=== PATIENT | female | born 1965 | race Caucasian/White ===

== ENCOUNTER 2019-12-28 14:39 | Outpatient (NON) | payer OTHER, BC, SELFPAY | END 2019-12-28 14:40 | PROVIDERS: Visit Provider Nurse Practitioner Family | DX: R31.9 Hematuria, unspecified (principal) | CPT/HCPCS: 87086; 87088 ==

== ENCOUNTER 2020-02-18 11:28 | Outpatient (CLI) | payer OTHER, BC, SELFPAY ==
--- NOTE | 2020-02-18 11:31 | ECG_ITS ---
Measurements Intervals [place] Rate: 68 P: 50 NC: 142 QRS: -20 QRSD: 107 T: 60 QT: 414 QTc: 443 Interpretive Statements SINUS RHYTHM DELAYED PRECORDIAL R/S TRANSITION BORDERLINE ECG Electronically Signed On 02-18-2020 11:49:10 CDT by Valerio Kern D.O.
== END 2020-02-18 11:29 | disposition home or self-care (01) ==
PROVIDERS: Visit Provider Nurse Practitioner Family
DX: R03.0 Elevated blood-pressure reading, without diagnosis of hypertension (principal)
CPT/HCPCS: 93005

== ENCOUNTER 2020-05-09 12:09 | Outpatient (CLI) | payer OTHER, BC, SELFPAY ==
--- NOTE | ~2020-05-09 | US_ITS ---
EXAMINATION: US venous doppler [facility] DATE: 05/09/2020 12:55 INDICATION: Right lower limb pain TECHNIQUE: Grayscale ultrasound images without and with compression and Doppler ultrasound images of the bilateral lower extremity veins were obtained. COMPARISON: None. FINDINGS: The visualized portions of right common femoral vein, profunda (deep) femoral vein, femoral vein, pop liteal vein, posterior tibial veins, peroneal veins, gastrocnemius vein and greater saphenous vein ou tflow are patent. The visualized portions of left common femoral vein, profunda femoral vein, femoral vein, popliteal v ein, posterior tibial veins, peroneal veins, gastrocnemius vein and greater saphenous vein outflow ar e patent. IMPRESSION: 1. No deep venous thrombosis in either lower limb. Reviewed, dictated and finalized at location A.
--- NOTE | ~2020-05-09 | US_ITS ---
EXAMINATION: US arterial ankle brachial ind DATE: 05/09/2020 12:55 INDICATION: Paresthesias of skin and right leg pain. TECHNIQUE: Segmental pressures and plethysmographic and Doppler waveforms of the brachial and lower e xtremity arteries were obtained. COMPARISON: None. FINDINGS: Right and left brachial artery pressures of 138 mm Hg and 138 mm Hg, respectively, are concordant (no rmal difference <= 30 mmHg). The right ankle-brachial index (MANUEL) is 1.00 (normal >= 0.9-1.0). Arterial Doppler waveforms are trip hasic at the right posterior tibial and dorsalis pedis arteries. The left MANUEL is 1.07. Arterial Doppler waveforms are triphasic with brisk systolic upstrokes at both the left posterior tibial and dorsalis pedis arteries. IMPRESSION: 1. Normal study. Reviewed, dictated and finalized at location A. IMPRESSION: 1. Normal study.
== END 2020-05-09 12:10 | disposition home or self-care (01) ==
PROVIDERS: PCP Nurse Practitioner Family; Visit Provider Nurse Practitioner Family
DX: R20.2 Paresthesia of skin (principal); I73.9 Peripheral vascular disease, unspecified; M79.604 Pain in right leg; M79.605 Pain in left leg
CPT/HCPCS: 93922; 93970

== ENCOUNTER 2020-06-22 11:32 | Outpatient (CLI) | payer OTHER, BC, SELFPAY ==
--- NOTE | ~2020-06-22 | US_ITS ---
EXAMINATION: US renal BI DATE: 06/22/2020 12:01 INDICATION: Unspecified abdominal pain TECHNIQUE: Multiple grayscale and Doppler ultrasound images of the kidneys were obtained. COMPARISON: None. FINDINGS: The right kidney measures 9.7 x 3.3 x 5.5 cm. The left kidney measures 7.8 x 4.6 x 5.1 cm. The kidneys demonstrate normal parenchymal echogenicity. There is no hydronephrosis. The bladder is n ormal. IMPRESSION: 1. Normal kidneys without hydronephrosis. Reviewed, dictated and finalized at location A.
[2020-06-22 12:48] LABS: Add Urine Microscopic? YES; Appearance Urine Sl Cloudy (Clear); Bilirubin Urine 1+ (Negative); Blood Urine 3+ (Negative); Color Urine Amber (Yellow); Glucose Urine UA Negative (Negative); Ketones Urine Negative (Negative); Leukocyte Esterase Ur Trace LEU/UL (Negative); Nitrate Urine Negative (Negative); Protein Urine 2+ (Negative); Specific Grav Ur >= 1.030 (1.010-1.020); Urobilinogen Urine 0.2 mg/dL (0.2-1.0)
[2020-06-22 12:55] LABS: Bacteria Urine 1+ /hpf; RBC Urine >75 /hpf (0-2); Squamous Epithelial Cell Urine Few /hpf (Few); WBC Urine 0-3 /hpf (0-3)
== END 2020-06-22 11:33 | disposition home or self-care (01) ==
PROVIDERS: PCP Nurse Practitioner Family; Visit Provider Nurse Practitioner Family
DX: R39.9 Unspecified symptoms and signs involving the genitourinary system (principal); R10.9 Unspecified abdominal pain; Z87.442 Personal history of urinary calculi
CPT/HCPCS: 76775; 81001

== ENCOUNTER 2020-12-05 16:59 | Outpatient (NON) | payer OTHER, BC, SELFPAY | END 2020-12-05 17:00 | PROVIDERS: PCP Nurse Practitioner Family; Visit Provider Nurse Practitioner Family | DX: R31.9 Hematuria, unspecified (principal) | CPT/HCPCS: 87086 ==

== ENCOUNTER 2021-01-12 08:26 | Outpatient (CLI) | payer OTHER, BC, SELFPAY | END 2021-01-12 08:27 | disposition home or self-care (01) | LOC: CHSIMG 08:29 | PROVIDERS: PCP Nurse Practitioner Family; Visit Provider Nurse Practitioner Family | DX: Z12.4 Encounter for screening for malignant neoplasm of cervix (principal) | CPT/HCPCS: 88175; G0145 ==

== ENCOUNTER 2021-01-17 14:45 | Outpatient (CLI) | payer OTHER, BC, SELFPAY ==
--- NOTE | ~2021-01-17 | US_ITS ---
EXAMINATION: US renal BI DATE: 01/17/2021 15:09 INDICATION: Hematuria. TECHNIQUE: Multiple ultrasound grayscale images of the kidneys were obtained. COMPARISON: Ultrasound 06/22/2020 FINDINGS: The right kidney measures 10.3 x 4.2 x 5.1 cm. The left kidney measures 9.8 x 4.5 x 4.9 cm. The kidne ys demonstrate normal parenchymal echogenicity. There is no hydronephrosis. The bladder is not well d istended. IMPRESSION: 1. Normal kidneys. No hydronephrosis. Reviewed, dictated and finalized at location A.
== END 2021-01-17 14:46 | disposition home or self-care (01) ==
LOC: CHSIMG 14:46
PROVIDERS: PCP Nurse Practitioner Family; Visit Provider Nurse Practitioner Family
DX: R31.9 Hematuria, unspecified (principal)
CPT/HCPCS: 76775; 87077; 87086; 87088; 87186

== ENCOUNTER 2021-01-26 20:38 | Emergency (ER) | payer OTHER, BC, SELFPAY ==
--- NOTE | ~2021-01-26 | XR_ITS ---
EXAMINATION: XR chest 2V EXAM DATE: 01/26/2021 21:26 INDICATION: Sudden onset left side chest pain into left arm . TECHNIQUE: Frontal and lateral projections of the chest obtained and reviewed. Comparison is made to prior examination from 10/09/2016. FINDINGS: Linear right midlung zone atelectasis or scarring. The lungs are otherwise clear. There a re no pleural effusions. The cardiomediastinal silhouette is within normal limits. There is no pneu mothorax suspected. The bones and soft tissues are unremarkable. IMPRESSION: Linear subsegmental right midlung zone atelectasis or scarring. Reviewed, dictated and finalized at location G.
[2021-01-26 20:40] VITALS: PULSE 84
--- NOTE | 2021-01-26 20:43 | ECG_ITS ---
Measurements Intervals [place] Rate: 85 P: 41 [place]: 149 QRS: -31 QRSD: 101 T: 41 QT: 372 QTc: 444 Interpretive Statements SINUS RHYTHM LEFT AXIS DEVIATION BORDERLINE R WAVE PROGRESSION, ANTERIOR LEADS BASELINE ARTIFACT- II, III, AVF BORDERLINE ECG Electronically Signed On 01-27-2021 7:54:31 CDT by Valerio Kern D.O.
[2021-01-26 20:48] VITALS: BP 126/85; PULSE 84; RESP 20; TEMP 36.7; O2SAT 96
[2021-01-26 21:18] VITALS: O2SAT 100
[2021-01-26 21:48] LABS: Basophils Absolute Auto 0.06 K/mm3 (0.00-0.10); Basophils Percent Auto 0.7 % (0.0-1.0); Eosinophils Absolute Auto 0.19 K/mm3 (0.02-0.50); Eosinophils Percent Auto 2.3 % (1.0-6.0); Hematocrit 44.6 % (35.0-49.0); Hemoglobin 14.8 g/dL (12.0-15.0); Immature Granulocyte Absolute 0.03 K/mm3 (0.00-0.00); Immature Granulocyte Percent A 0.4 % (0.0-0.0); Lymphocytes Absolute Auto 2.73 K/mm3 (1.10-4.50); Lymphocytes Percent Auto 32.9 % (18.0-42.0); Mean Corpuscular HGB Conc 33.2 g/dL (32.0-36.0); Mean Corpuscular Hemoglobin 28.8 pg (27.0-31.0); Mean Corpuscular Volume 86.9 fL (78.0-102.0); Monocytes Absolute Auto 0.66 K/mm3 (0.10-0.90); Monocytes Percent Auto 7.9 % (2.0-11.0); Neutrophils Absolute Auto 4.6 K/mm3 (1.7-7.2); Neutrophils Percent Auto 55.8 % (50.0-70.0); Platelet Count Result 234 K/mm3 (150-420); Red Blood Count 5.13 M/mm3 (4.20-5.40); Red Cell Distribution Width 11.8 % (11.6-14.4); White Blood Count 8.3 K/mm3 (4.8-10.8)
[2021-01-26 21:54] LABS: D Dimer 0.34 mg/L (0.19-0.50)
[2021-01-26 22:00] LABS: Alanine Aminotransferase 40 U/L (14-59); Alkaline Phosphatase 82 U/L (46-116); Anion Gap 11 mmol/L (8-16); Aspartate Amino Transferase 19 U/L (15-37); Bilirubin,Total 0.3 mg/dL (0.00-1.00); Blood Urea Nitrogen 24 mg/dL (7-18); Calcium 9.8 mg/dL (8.5-10.1); Carbon Dioxide 26 mmol/L (21-32); Chloride 107 mmol/L (98-108); Estimated CRCL calculation 44 ml/min; Estimated Glomerular Filt Rate 47; Glucose 117 mg/dL (70-99); Osmolality Calculated 303 mOsm/kg (285-295); Potassium 3.9 mmol/L (3.5-5.1); Sodium 144 mmol/L (136-145); Total Protein 7.2 g/dL (6.4-8.2)
--- NOTE | 2021-01-26 22:00 | ED.CHESTPAIN ---
HPI - Chest Pain General Chief Complaint: Chest Pain Stated Complaint: pain in left arm, trouble catching breath Time Seen by Provider: 01/26/21 21:25 Source: patient Mode of arrival: ambulatory Limitations: no limitations History of Present Illness HPI narrative: Patient comes in after having left upper arm pain at home. With this she got acutely short of breath. This episode of shortness of breath was brief and only lasted a few seconds, and was accompanied with some mild diaphoresis. She had no chest pain, no long lasting shortness of breath, and no nausea with this. This has not happened again since she had the left arm pain at 6pm tonight. She states the pain in her upper arm lasted about ten minutes and then resolved. This presented with anxiety and shortness of breath which was brief. She has had no further symptoms since that time. Onset (ago): hour(s) Timing of current episode: episodic Onset: during rest Pain location: other (left posterior arm) Pain radiation: none Severity: moderate Quality: heaviness Relieving factors: nothing Exacerbating factors: nothing Associated symptoms: diaphoresis and other (shortness of breath) Treatment prior to arrival: none Risk Factors Coronary artery disease risk factors: smoking history Related Data Allergies Allergy/AdvReac Type Severity Reaction Status Date / Time No Known Allergies Allergy Verified 01/12/21 07:34 Review of Systems Constitutional: Constitutional: Reports no additional constitutional complaints Eyes: Eyes: Reports no additional eye complaints ENT: Reports system reviewed and no additional complaints, except as documented Cardiovascular: Cardiovascular: Reports no additional cardiovascular complaints Respiratory: Respiratory: Reports no additional respiratory complaints Gastrointestinal: Gastrointestinal: Reports no additional gastrointestinal complaints Genitourinary: Genitourinary: Reports no additional female genitourinary complaints Musculoskeletal: Musculoskeletal: Reports no additional musculoskeletal complaints Integumentary/Breasts: Skin/Breast: Reports system reviewed and no additional complaints, except as docu Neurologic: Reports system reviewed and no additional complaints, except as documented Psychiatric: Psychiatric: Reports no additional psychiatric complaints Endocrine: Endocrine: Reports no additional endocrine complaints Hematologic/Lymphatic: Hematologic/Lymphatic: Reports no additional hematologic/lymphatic complaints Allergic/Immunologic: Allergic/Immunologic: Reports no additional allergic/immunologic complaints PMFSH Past Medical History Medical History (Updated 01/26/21 @ 22:54 by Jamil Alex MD) Acute left flank pain GERD (gastroesophageal reflux disease) Left sided abdominal pain Major depression, recurrent Malaise and fatigue Nicotine dependence in remission Obese Overweight Pain in left leg Pain in right leg Sore throat Vitamin D deficiency Surgical History Surgical History H/O: section History of partial hysterectomy (~2001) Family History Family History Father Malignant neoplasm of prostate Mother Breast cancer Grandparent Uterine cancer Social History Social History Social History: , has 2 children Smoking status: Former smoker Alcohol intake: never Substance use: never Substance use type: does not use Additional occupation/education comments: 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 Gender identity (if verbalized by the patient): Female Spiritual care concerns: No Exam Const: General: cooperative, healthy appearing, comfortable, no acute distress, well developed and alert Nutritional Appearance: average body habitus Orientation/consciou
[2021-01-26 22:01] LABS: Troponin I < 4.0 ng/L (0.00-60.4)
[2021-01-26 22:02] LABS: BNP < 5.0 pg/mL (0-100)
[2021-01-26 22:04] VITALS: BP 120/80; PULSE 85; RESP 16; O2SAT 95
[2021-01-26 23:05] VITALS: BP 130/72; PULSE 78; RESP 18; TEMP 36.6; O2SAT 96
[2021-01-27 00:06] VITALS: BP 122/88; PULSE 83; RESP 16; O2SAT 95
--- NOTE | 2021-01-27 00:07 | PC.NURSE ---
[id number] no chest pain, no nausea patient eating snack & drinking soda
[2021-01-27 01:13] VITALS: BP 126/86; PULSE 86; RESP 16; TEMP 36.8; O2SAT 96
== END 2021-01-27 01:19 | disposition home or self-care (01) ==
PROVIDERS: Emergency Provider Emergency Medicine; PCP Nurse Practitioner Family
DX: M79.602 Pain in left arm (principal); R06.02 Shortness of breath
CPT/HCPCS: 36415; 71046; 80053; 83880; 84484; 85025; 85380; 93005; 99283; 99284

== ENCOUNTER 2021-04-30 14:41 | Outpatient (CLI) | payer OTHER, BC, SELFPAY ==
--- NOTE | ~2021-04-30 | CT_ITS ---
EXAMINATION: CT abdomen pelvis w con EXAM DATE: 04/30/2021 15:22 INDICATION: R10.32 - Left lower quadrant pain, symptoms 2 days. TECHNIQUE: Spiral CT of the abdomen and pelvis was performed following intravenous injection of 100 m L Omnipaque 350. Axial, coronal and sagittal images of the abdomen and pelvis were reviewed. The do se-length product (DLP) for this examination was 672.47 mGy-cm. The exposure was tailored according to patient size (auto mA exposure control), and iterative reconstruction (ASIR) was used as additiona l dose reduction technique. Correlation is made to kidney ultrasound 01/17/2021. FINDINGS: There is ill-defined enhancing enhancing mass in the lower pole of the right kidney measuri ng about 1.5 cm, statistically most likely renal cell cancer (axial image 80). Potentially could be c onsidered for cryoablation. Recommend consult. No hydronephrosis. There is hepatic steatosis without suspicious focal lesion identified. Spleen, adrenal glands, pancre as are unremarkable. Gallbladder is unremarkable. No biliary obstruction. The uterus is not identi fied and has likely been surgically resected. The bladder is unremarkable. There is no retroperiton eal or pelvic lymphadenopathy. The appendix is normal. There is mild to moderate descending/sigmoid colonic diverticulosis and mild adjacent inflammation consistent with acute uncomplicated diverticulitis. The stomach and small jeremiah l are unremarkable. There is expected amount of colonic stool. No free intraperitoneal gas. The heart is normal in size. There are no pericardial or pleural effusions. The lung bases are unremark able. The bones are unremarkable. IMPRESSION: 1. Small right renal mass. No evidence metastatic disease. consult. 2. Acute uncomplicated descending/sigmoid colonic diverticulitis. 3. Hepatic steatosis. Reviewed, dictated and finalized at location A.
== END 2021-04-30 14:42 | disposition home or self-care (01) ==
LOC: CHSIMG 14:43
PROVIDERS: PCP Nurse Practitioner Family; Visit Provider Nurse Practitioner Family
DX: R10.32 Left lower quadrant pain (principal); R10.2 Pelvic and perineal pain; M54.5 Low back pain
CPT/HCPCS: 74177; Q9967

== ENCOUNTER 2021-07-27 14:13 | Outpatient (CLI) | payer OTHER, BC, SELFPAY ==
--- NOTE | ~2021-07-27 | MM_ITS ---
EXAMINATION: MM screening [place] BI w rossy HISTORY: Screening mammogram TECHNIQUE: Craniocaudal and mediolateral oblique 3-D tomosynthesis images were obtained and synthetic 2-D images were generated. CAD analysis was submitted and interpreted. COMPARISON: 08/02/2019, 02/20/2017 bilateral digital screening mammogram BREAST PARENCHYMAL COMPOSITION: There are scattered areas of fibroglandular density. FINDINGS: There is no evidence of suspicious mass, calcification, or architectural distortion to sugg est malignancy in either breast. There has been no suspicious interval change. IMPRESSION: 1. No mammographic evidence of malignancy. 2. Recommend routine screening mammography in one year. BI-RADS Category 1: Negative Reviewed, dictated and finalized at location A.
== END 2021-07-27 14:14 | disposition home or self-care (01) ==
PROVIDERS: PCP Nurse Practitioner Family; Visit Provider Nurse Practitioner Family
DX: Z12.31 Encounter for screening mammogram for malignant neoplasm of breast (principal)
CPT/HCPCS: 77063; 77067

== ENCOUNTER 2021-07-31 07:44 | Outpatient (CLI) | payer OTHER, BC, SELFPAY ==
--- NOTE | ~2021-07-31 | CT_ITS ---
EXAMINATION: CT abdomen pelvis w con DATE: 07/31/2021 08:05 INDICATION: Right kidney mass follow-up TECHNIQUE: Computed tomography (CT) of the abdomen and pelvis was performed with 100 cc Omnipaque 350 intravenous contrast. Automated exposure control and iterative reconstruction technique were employe d. Exam dose: 649.03 mGy-cm total exam DLP. COMPARISON: 04/30/2021 CT abdomen pelvis FINDINGS: The lung bases are clear of infiltrate or consolidation or mass lesion. Normal heart size. No pericardial or pleural effusion. Diffuse hepatic steatosis. No hepatic space-occupying mass lesion or bile duct dilatation. The gallbl adder appears unremarkable. No pancreatic mass lesion, calcification or ductal dilatation. Normal splenic size. Normal morphology of the adrenal glands. Approximately 1.6 x 1.7 cm enhancing lower pole right renal mass lesion appears mildly increased in s ize from approximately 1.3 x 1.5 cm dimension on 04/30/2021. This is suspicious for a malignant hypern ephroma. 7 mm upper pole left renal cyst. No other renal mass lesion is evident. Mild bilateral chronic pyelonephritis is suggested. No urinary tract calculus or hydroureteronephrosis. Normal caliber of the abdominal aorta. No intraperitoneal or retroperitoneal or pelvic mass lesion or adenopathy or ascites is noted (with the exception of the previously reported right lower pole renal mass). Normal appendix. Diverticulosis of the left colon; no CT evidence of diverticulitis. No bowel obstruction, bowel wall thickening, pneumatosis or intraperitoneal free air is detected. No suspicious osteolytic or osteoblastic lesions are noted. IMPRESSION: Mild increased size of lower pole right renal enhancing mass, currently measuring 1.6 x 1.7 cm, suspicious for malignant hypernephroma Reviewed, dictated and finalized at Location A. Reviewed, dictated and finalized at location B. IMPRESSION: Mild increased size of lower pole right renal enhancing mass, curr ently measuring 1.6 x 1.7 cm, suspicious for malignant hypernephroma
== END 2021-07-31 07:45 | disposition home or self-care (01) ==
LOC: CHSIMG 07:46
PROVIDERS: PCP Nurse Practitioner Family; Visit Provider Nurse Practitioner Family
DX: N28.89 Other specified disorders of kidney and ureter (principal)
CPT/HCPCS: 74177; Q9967

== ENCOUNTER 2021-08-12 03:04 | Emergency (ER) | payer BC, SELFPAY ==
--- NOTE | ~2021-08-12 | CT_ITS ---
EXAMINATION: CT abdomen pelvis w con DATE: 08/12/2021 04:25 INDICATION: Right upper quadrant and epigastric abdominal pain for 4 hours. Vomiting. TECHNIQUE: Computed tomography (CT) of the abdomen and pelvis was performed with 100 cc Omnipaque 350 intravenous contrast. Automated exposure control and iterative reconstruction technique were employe d. Exam dose: 680.51 mGy-cm total exam DLP. COMPARISON: 07/31/2021 CT abdomen pelvis FINDINGS: The lung bases are clear. Normal heart size. No pericardial or pleural effusion. Small sliding hiatal hernia. The gallbladder is distended. No gallbladder wall thickening or pericholecystic fluid or fat strandin g is evident. Consider gallbladder ultrasound for further evaluation considering the complaint of rig ht upper quadrant pain. No hepatic space-occupying mass lesion or bile duct or pancreatic duct dilatation. No pancreatic mass lesion or calcification. Normal splenic size. Normal morphology of the adrenal glands. Approximately 1.6 cm lower pole right renal enhancing mass is again noted, of concern for possible hy pernephroma. No urinary tract calculus or hydroureteronephrosis. The urinary bladder is unremarkable. Status post hysterectomy. Normal caliber of the abdominal aorta. No intraperitoneal or retroperitoneal or pelvic mass lesion or adenopathy or ascites. Diverticulosis of the left colon; no CT evidence of diverticulitis. Normal appendix. No bowel obstruction, bowel wall thickening, pneumatosis or intraperitoneal free air. Degenerative changes of the thoracic and to a lesser extent lumbar spine. No suspicious osteolytic or osteoblastic lesions are noted. IMPRESSION: Persistent 1.6 cm lower pole right renal mass, of concern for possible hypernephroma Distended gallbladder; consider gallbladder ultrasound and/or related to colitis hepatobiliary scan a s clinically appropriate for evaluation of possible cholelithiasis or cholecystitis Small sliding hiatal hernia Normal appendix Diverticulosis of the colon; no CT evidence of diverticulitis No bowel obstruction or free air Status post hysterectomy Reviewed, dictated and finalized at [facility]. Reviewed, dictated and finalized at location A. IMPRESSION: Persistent 1.6 cm lower pole right renal mass, of concern for poss ible hypernephroma Distended gallbladder; consider gallbladder ultrasound and/or related to coliti s hepatobiliary scan as clinically appropriate for evaluation of possible rodrigue lithiasis or cholecystitis Small sliding hiatal hernia Normal appendix Diverticulosis of the colon; no CT evidence of diverticulitis No bowel obstruction or free air Status post hysterectomy
[2021-08-12 03:05] VITALS: BP 172/89; PULSE 71; RESP 22; TEMP 36.4; O2SAT 96
--- NOTE | 2021-08-12 03:14 | ECG_ITS ---
Measurements Intervals [place] Rate: 60 P: 30 [place]: 149 QRS: -21 QRSD: 99 T: 18 QT: 460 QTc: 461 Interpretive Statements SINUS RHYTHM VOLTAGE CRITERIA FOR LVH BASELINE ARTIFACT- I, III, AVL, AVF BORDERLINE ECG Electronically Signed On 08-13-2021 8:19:54 CDT by Valerio Kern D.O.
[2021-08-12] MEDS: ONDANSETRON INJ 4 MG/2 ML VIAL IV PUSH (03:24)
[2021-08-12] MEDS: MORPHINE SULFATE (*CRX) 4 MG/ML INJ IV PUSH (03:24)
[2021-08-12] MEDS: SODIUM CHLORIDE 0.9% IV 1,000 ML 999 ML IV CONT (03:25)
[2021-08-12] MEDS: PANTOPRAZOLE SODIUM IV 40 MG VIAL IV PUSH (03:25)
[2021-08-12 03:37] LABS: Basophils Absolute Auto 0.06 K/mm3 (0.00-0.10); Basophils Percent Auto 0.7 % (0.0-1.0); Eosinophils Percent Auto 1.1 % (1.0-6.0); Hematocrit 45.9 % (35.0-49.0); Hemoglobin 15.5 g/dL (12.0-15.0); Immature Granulocyte Absolute 0.04 K/mm3 (0.00-0.00); Immature Granulocyte Percent A 0.4 % (0.0-0.0); Lymphocytes Absolute Auto 1.25 K/mm3 (1.10-4.50); Lymphocytes Percent Auto 13.9 % (18.0-42.0); Mean Corpuscular HGB Conc 33.8 g/dL (32.0-36.0); Mean Corpuscular Hemoglobin 29.1 pg (27.0-31.0); Mean Corpuscular Volume 86.1 fL (78.0-102.0); Mean Platelet Volume 10.7 fl (9.2-11.8); Monocytes Absolute Auto 0.37 K/mm3 (0.10-0.90); Monocytes Percent Auto 4.1 % (2.0-11.0); Neutrophils Absolute Auto 7.2 K/mm3 (1.7-7.2); Neutrophils Percent Auto 79.8 % (50.0-70.0); Platelet Count Result 212 K/mm3 (150-420); Red Blood Count 5.33 M/mm3 (4.20-5.40); Red Cell Distribution Width 11.9 % (11.6-14.4)
[2021-08-12 03:51] LABS: INR 0.9; Partial Thromboplastin Time 23.9 SEC (23.90-30.70); Prothrombin Time 9.7 Seconds (9.50-12.10)
[2021-08-12 03:54] LABS: Lactic Acid Reflex 1.2 mmol/L (0.4-2.0)
[2021-08-12 03:56] LABS: Alanine Aminotransferase 54 U/L (14-59); Albumin Level 4.2 g/dL (3.4-5.0); Alkaline Phosphatase 87 U/L (46-116); Anion Gap 14 mmol/L (8-16); Aspartate Amino Transferase 27 U/L (15-37); Bilirubin,Total 0.4 mg/dL (0.00-1.00); Blood Urea Nitrogen 20 mg/dL (7-18); Calcium 9.2 mg/dL (8.5-10.1); Carbon Dioxide 23 mmol/L (21-32); Chloride 106 mmol/L (98-108); Estimated CRCL calculation 53 ml/min; Estimated Glomerular Filt Rate 59; Glucose 161 mg/dL (70-99); Lipase 177 U/L (73-393); Osmolality Calculated 301 mOsm/kg (285-295); Potassium 3.9 mmol/L (3.5-5.1); Sodium 143 mmol/L (136-145); Total Protein 7.3 g/dL (6.4-8.2)
[2021-08-12 03:59] LABS: Troponin I < 4.0 ng/L (0.00-60.4)
[2021-08-12 04:26] LABS: SARS-CoV-2 RNA PCR Negative (Negative)
--- NOTE | 2021-08-12 05:11 | ED.ABDPAIN ---
HPI - Abdominal Pain General Chief Complaint: Abdominal Pain Stated Complaint: sickness Source: patient History of Present Illness HPI narrative: this is a 56-year-old female that presents with some abdominal pain localizing to the right upper quadrant with some nausea will her up out of sleep this morning, she rates her pain about a 7/10 with no fever chills no diarrhea constipation. The patient recently had a CT scan of abdomen and pelvis in the end of July which showed a right kidney mass that is being investigated by Urology. No chest pain no shortness of breath no diarrhea constipation no fever chills. MD elicited complaint: abdominal pain Pertinent past history: none Onset (ago): hour(s) Pain Consistency: constant Severity: moderate Quality: aching Radiation: RUQ Related Data Allergies Allergy/AdvReac Type Severity Reaction Status Date / Time No Known Allergies Allergy Verified 08/06/21 13:24 Review of Systems Review of Systems: All systems reviewed & are unremarkable except as noted in HPI and below PMFSH Past Medical History Medical History Acute left flank pain GERD (gastroesophageal reflux disease) Left sided abdominal pain Major depression, recurrent Malaise and fatigue Nicotine dependence in remission Obese Overweight Pain in left leg Pain in right leg Sore throat Superficial sunburn Vitamin D deficiency Surgical History Surgical History H/O: section History of partial hysterectomy (~2001) Family History Family History Father Malignant neoplasm of prostate Mother Breast cancer Grandparent Uterine cancer Social History Social History Social History: , has 2 children Smoking status: Former smoker Alcohol intake: never Alcohol use details: social Substance use: never Substance use type: does not use Additional occupation/education comments: 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 Gender identity (if verbalized by the patient): Female Spiritual care concerns: No Exam Const: General: no acute distress Orientation/consciousness: patient oriented x3 Eyes: Pupils: Equal, round and reactive pupils present Neck: Neck: normal visual inspection, no lymphadenopathy and no meningeal signs Chest: Chest palpation & inspection: normal inspection of the chest Resp: Effort & Inspection: normal respiratory effort Auscultation: clear to auscultation bilaterally Cardio: Rate: regular rate Rhythm: regular rhythm GI: GI Palp: Yes Soft to palpation, Yes Tenderness to palpation present (GI) ( Right upper quadrant) and Yes Guarding due to palpation present (GI) : General: Yes no CVA tenderness Urinary Catheter: Urinary Catheter: patent and draining Skin: General skin exam: normal color Rashes: no rashes Extrem: General: normal to inspection and no pedal edema Psych: Mental Status: mental status grossly normal Affect: normal affect Course Course Emergency Course: patient with right upper quadrant abdominal pain had a CT scan that was reviewed with patient there is no acute abdominal process, there is a right kidney mass and has appointment see Urology for biopsy. Labs and COVID reviewed with patient. Patient did receive IV morphine and Zofran and has controlled her pain. Vital Signs Vital signs: Vital Signs Temperature 36.4 C 08/12/21 03:05 Pulse Rate 71 08/12/21 03:05 Respiratory Rate 22 H 08/12/21 03:05 Blood Pressure 172/89 H 08/12/21 03:05 Pulse Oximetry 96 08/12/21 03:05 Temperature 36.4 C 08/12/21 03:05 Pulse Rate 71 08/12/21 03:05 Respiratory Rate 22 H 08/12/21 03:05 Blood Pressure 172/89 H 08/12/21 03:05 Pulse Oximetry 96
[2021-08-12 05:24] VITALS: BP 132/93; PULSE 89; RESP 20; TEMP 36.4; O2SAT 99
== END 2021-08-12 05:28 | disposition home or self-care (01) ==
PROVIDERS: Emergency Provider Emergency Medicine; PCP Nurse Practitioner Family
DX: R10.11 Right upper quadrant pain (principal); Z20.822 Contact with and (suspected) exposure to COVID-19
CPT/HCPCS: 36415; 74177; 80053; 83605; 83690; 84484; 85025; 85610; 85730; 93005; 96361; 96374; 96375; 99283; 99284; C9113; C9803; J2270; J2405; J7030; Q9967; U0003; U0005

== ENCOUNTER 2021-08-12 08:19 | Emergency (ER) | payer BC, SELFPAY ==
[2021-08-12 08:30] VITALS: BP 166/85; PULSE 67; RESP 20; TEMP 36.5; O2SAT 97
--- NOTE | 2021-08-12 08:34 | ED.ABDPAIN ---
HPI - Abdominal Pain General Chief Complaint: Abdominal Pain Stated Complaint: RUQ pain, nausea, vomitting Time Seen by Provider: 08/12/21 08:37 History of Present Illness HPI narrative: 56-year-old female patient returns again with continuing pain in the right upper and mid abdomen and nausea, retching and vomiting some bile. Patient states that the pain started last night around 11:00 p.m. patient localizes the pain to the right upper quadrant and upper mid abdomen with the mild radiation around the side to the back but no radiation to the shoulder blade or into the lower abdomen. She was seen at around 5:00 a.m. this morning in the ER and had a complete workup done with labs and CT abdomen pelvis with IV contrast. Her labs seemed reasonably normal. A urinalysis was not obtained at that time. The CT abdomen and pelvis was reported with increased gallbladder distension in comparison to 07/31/2021. There was no biliary dilatation or other acute abnormalities or significant changes reported. The patient continues to have a 15 mm right lower pole solid renal lesion which is already under investigation with the urologist The patient apparently refused admission at that time. She was sent home with a prescription for famotidine 20 mg twice a day. Patient is currently on Augmentin twice a day since the last 5 days for sore throat. Patient reports no fever or chills. Patient denies any urinary symptoms. She denies any constipation or diarrhea. Her last bowel movement was early this morning. Patient states that she has not had anything to eat or drink since her early discharge from the ER . COVID screen is negative. Patient denies having had COVID vaccination . Related Data Home Medications Medication Instructions Recorded Confirmed amoxicillin 875 mg PO BID 08/12/21 08/12/21 Allergies Allergy/AdvReac Type Severity Reaction Status Date / Time No Known Allergies Allergy Verified 08/06/21 13:24 Review of Systems Review of Systems: All systems reviewed & are unremarkable except as noted in HPI and below Constitutional: Constitutional: Reports as per HPI and Reports no additional constitutional complaints Eyes: Eyes: Reports no additional eye complaints ENT: Reports system reviewed and no additional complaints, except as documented Cardiovascular: Cardiovascular: Reports no additional cardiovascular complaints Respiratory: Respiratory: Reports no additional respiratory complaints Gastrointestinal: Gastrointestinal: Reports as per HPI, Reports abdominal pain, Reports nausea and Reports vomiting Musculoskeletal: Musculoskeletal: Reports no additional musculoskeletal complaints Integumentary/Breasts: Skin/Breast: Reports system reviewed and no additional complaints, except as docu Neurologic: Reports system reviewed and no additional complaints, except as documented Psychiatric: Psychiatric: Reports no additional psychiatric complaints Endocrine: Endocrine: Reports no additional endocrine complaints Hematologic/Lymphatic: Hematologic/Lymphatic: Reports no additional hematologic/lymphatic complaints Allergic/Immunologic: Allergic/Immunologic: Reports no additional allergic/immunologic complaints PMFSH Past Medical History Medical History Acute left flank pain GERD (gastroesophageal reflux disease) Left sided abdominal pain Major depression, recurrent Malaise and fatigue Nicotine dependence in remission Obese Overweight Pain in left leg Pain in right leg Sore throat Superficial sunburn Vitamin D deficiency Surgical History Surgical History H/O: section History of partial hysterectomy (~2001) Family History Family History Father Malignant neoplasm of prostate Mother Breast cancer Grandparent Uterine cancer
[2021-08-12] MEDS: ONDANSETRON INJ 4 MG/2 ML VIAL IV PUSH (08:51)
[2021-08-12] MEDS: KETOROLAC 30 MG/ML VIAL (*BKC) IV PUSH (08:51)
[2021-08-12] MEDS: LACTATED RINGERS 1,000 ML 999 ML IV CONT (08:51)
[2021-08-12 08:59] LABS: Basophils Absolute Auto 0.05 K/mm3 (0.00-0.10); Basophils Percent Auto 0.6 % (0.0-1.0); Eosinophils Absolute Auto 0.02 K/mm3 (0.02-0.50); Eosinophils Percent Auto 0.3 % (1.0-6.0); Immature Granulocyte Absolute 0.03 K/mm3 (0.00-0.00); Immature Granulocyte Percent A 0.4 % (0.0-0.0); Lymphocytes Absolute Auto 0.89 K/mm3 (1.10-4.50); Lymphocytes Percent Auto 11.2 % (18.0-42.0); Mean Corpuscular HGB Conc 33.3 g/dL (32.0-36.0); Mean Corpuscular Hemoglobin 28.9 pg (27.0-31.0); Mean Corpuscular Volume 86.7 fL (78.0-102.0); Mean Platelet Volume 10.7 fl (9.2-11.8); Monocytes Absolute Auto 0.29 K/mm3 (0.10-0.90); Monocytes Percent Auto 3.6 % (2.0-11.0); Neutrophils Absolute Auto 6.7 K/mm3 (1.7-7.2); Neutrophils Percent Auto 83.9 % (50.0-70.0); Platelet Count Result 206 K/mm3 (150-420); Red Blood Count 5.19 M/mm3 (4.20-5.40); Red Cell Distribution Width 11.9 % (11.6-14.4)
[2021-08-12 09:00] LABS: Add Urine Microscopic? YES; Appearance Urine Clear (Clear); Bilirubin Urine Negative (Negative); Blood Urine 2+ (Negative); Color Urine Light Yellow (Yellow); Glucose Urine UA Negative (Negative); Ketones Urine Negative (Negative); Leukocyte Esterase Ur Negative LEU/UL (Negative); Nitrate Urine Negative (Negative); Protein Urine 1+ (Negative); Urobilinogen Urine 0.2 mg/dL (0.2-1.0)
[2021-08-12 09:12] LABS: Bacteria Urine Trace /hpf; Squamous Epithelial Cell Urine Occasional /hpf (Few); WBC Urine 0-3 /hpf (0-3)
[2021-08-12 09:16] LABS: Alanine Aminotransferase 61 U/L (14-59); Albumin Level 4.2 g/dL (3.4-5.0); Alkaline Phosphatase 86 U/L (46-116); Anion Gap 11 mmol/L (8-16); Aspartate Amino Transferase 33 U/L (15-37); Bilirubin,Total 0.7 mg/dL (0.00-1.00); Blood Urea Nitrogen 15 mg/dL (7-18); Calcium 9.2 mg/dL (8.5-10.1); Carbon Dioxide 26 mmol/L (21-32); Chloride 105 mmol/L (98-108); Estimated CRCL calculation 55 ml/min; Estimated Glomerular Filt Rate > 60; Glucose 141 mg/dL (70-99); Lipase 128 U/L (73-393); Osmolality Calculated 296 mOsm/kg (285-295); Potassium 4.4 mmol/L (3.5-5.1); Sodium 142 mmol/L (136-145); Total Protein 7.1 g/dL (6.4-8.2)
--- NOTE | 2021-08-12 10:02 | PC.NURSE ---
[facility] worker contacted for surgical consult. exchange number given for dr busby.
[2021-08-12] MEDS: MORPHINE SULFATE (*CRX) 2 MG/ML INJ IV PUSH (10:13)
--- NOTE | 2021-08-12 10:14 | PC.NURSE ---
dr messer exchange contacted
--- NOTE | 2021-08-12 11:51 | PC.NURSE ---
Dr. Centeno exchange contacted for second page.
[2021-08-12 11:55] VITALS: BP 126/81; PULSE 85; RESP 16; O2SAT 96
--- NOTE | 2021-08-12 12:00 | PC.NURSE ---
Dr. Chaney speaking with dr. busby, awaiting return call from hospitalist.
[2021-08-12 13:24] VITALS: BP 144/76; PULSE 75; RESP 16; O2SAT 96
--- NOTE | 2021-08-12 14:00 | PC.NURSE ---
Pt transferred to [facility] via [facility].
== END 2021-08-12 14:00 | disposition short-term general hospital (02) ==
PROVIDERS: Emergency Provider Emergency Medicine; PCP Nurse Practitioner Family
DX: R10.11 Right upper quadrant pain (principal)
CPT/HCPCS: 36415; 80053; 81001; 83690; 85025; 96361; 96374; 96375; 99285; J1885; J2270; J2405; J7120

== ENCOUNTER 2021-08-12 14:42 | Observation (INO) | payer BC, SELFPAY ==
--- NOTE | ~2021-08-12 | US_ITS ---
US abdomen limited INDICATION: Distended gallbladder PROCEDURE: Realtime right upper abdominal ultrasound. COMPARISON: No prior studies for comparison. FINDINGS: The pancreas is normal without focal mass or pancreatic ductal dilation. Liver echotexture is increased, consistent with fatty infiltration. There is normal directional flow in the portal ve in. There are gallstones. Mild gallbladder wall thickening. Common bile duct measures 6 mm. No sonograp hic Loyd's sign. There is a hyperechoic 2.3 cm right renal mass, suspicious for renal cell carcinom a. IMPRESSION: 1: Cholelithiasis with gallbladder wall thickening. Consider cholecystitis in the appropriate clinica l setting. 2: Hyperechoic 2.3 cm right renal mass, suspicious for renal cell carcinoma. Recommend correlation w ith MRI. Reviewed, dictated and finalized at location [facility]. IMPRESSION: 1: Cholelithiasis with gallbladder wall thickening. Consider cholecystitis in t he appropriate clinical setting. 2: Hyperechoic 2.3 cm right renal mass, suspicious for renal cell carcinoma. R ecommend correlation with MRI.
--- NOTE | ~2021-08-12 | NM_ITS ---
EXAMINATION: NM hepatobiliary wo pharm DATE: 08/13/2021 12:53 INDICATION: Enlarged gallbladder COMPARISON: Ultrasound dated 08/13/[address] dated 08/12/2021 TECHNIQUE: 5 mCi Tc-99m mebrofenin (Choletec) was administered intravenously. Scintigraphic images o f the abdomen were obtained for one hour. At the 1 hour time point 2 mg of morphine was administered IV and imaging continued for an additional 30 minutes. FINDINGS: There is normal clearance of radiotracer from the blood pool. There is homogeneous tracer u ptake by the liver. Activity progresses to the common bile duct and small bowel 15 minutes with prog ressively increasing activity in the small bowel throughout the remainder of the study. Following mor phine administration of the tiny amount of activity is seen lateral to the proximal common bile duct likely in the cystic duct but with a persistent photopenic defect in the expected region of the gallb ladder which is been distended on prior ultrasound and CT imaging and which would be consistent with acute cholecystitis. There is some reflux of activity into the stomach on the images following morphi ne administration. IMPRESSION: 1. No activity identified within the gallbladder including during 30 minutes of imaging post morphin e administration which would be consistent with acute cholecystitis. Reviewed, dictated and finalized at location A. IMPRESSION: 1. No activity identified within the gallbladder including during 30 minutes o f imaging post morphine administration which would be consistent with acute cho lecystitis.
--- NOTE | 2021-08-12 15:12 | ADMGEN ---
This patient, Melita Leiva, was admitted to Medical Room 250-01. Patient/family oriented to hospital policies and general routines including ID bracelet, bed and alarms, visiting hours, pain management, procedures, bathroom and other care routines, personal items, smoking policy, room service/diet, and visiting hours. Information on how to activate the Rapid Response Team has been discussed. Patient/Family are encouraged to report perceived risks to care and to ask questions if they do not understand what they are told or what they should do.
[2021-08-12 15:40] VITALS: BP 136/71; PULSE 59; RESP 16; TEMP 36.8; O2SAT 98
--- NOTE | 2021-08-12 16:31 | PM.IMHP ---
H&P: HPI History of Present Illness Date/Time: 08/12/21 16:31Thiamrit is a 56-year-old female patient who has a history of a 1.6 cm right lower pole solid renal mass which is already under investigation with the urologist. The patient woke up around 11:00 a.m. last night had some localized pain to her right upper quadrant and upper mid abdomen that had some mild radiation around the side of the back but no radiation to the shoulder blade her into the abdomen. The patient decided to go to the emergency room at [facility] around 5:00 a.m. and she had a complete workup with a CT of her abdomen and pelvis with IV contrast. The CT of the abdomen pelvis was reported with increased gallbladder distension in comparison to 07/31/2021. There was no biliary dilation or other abnormalities or significant changes reported. The 15 mm right lower pole solid renal mass was once again seen. The patient has been on Augmentin twice a day since last 5 days for sore throat. The patient denies any fever chills. The patient has not eaten anything since last night. The patient had been sent home with prescriptions for Pepcid. However the patient could not tolerate the pain and she was unable to eat or drink anything and she decided to come back to the emergency room at [facility]. The patient was tested negative for COVID-19. The patient denies having had a COVID vaccine. Dr. Chaney at [facility] stated that she had notified Dr. busby and he agrees to be the consult. The patient is being admitted to inpatient status for abdominal pain and gallbladder distention. Date of service is 08/12/2021 Chief Complaint: abdominal pain right upper quadrant Review of Systems Review of Systems: All systems reviewed & are unremarkable except as noted in HPI and below Constitutional: Constitutional: Reports as per HPI and Reports no additional constitutional complaints Eyes: Eyes: Reports as per HPI and Reports no additional eye complaints ENT: Reports system reviewed and no additional complaints, except as documented and Reports Normal hearing present Cardiovascular: Cardiovascular: Reports no additional cardiovascular complaints Respiratory: Respiratory: Reports no additional respiratory complaints and Reports no additional respiratory complaints Gastrointestinal: Gastrointestinal: Reports as per HPI and Reports no additional gastrointestinal complaints Musculoskeletal: Musculoskeletal: Reports no additional musculoskeletal complaints Integumentary/Breasts: Skin/Breast: Reports system reviewed and no additional complaints, except as docu and Reports as per HPI Neurologic: Reports system reviewed and no additional complaints, except as documented, Reports as per HPI and Reports Normal hearing present Psychiatric: Psychiatric: Reports no additional psychiatric complaints and Reports as per HPI Endocrine: Endocrine: Reports no additional endocrine complaints Hematologic/Lymphatic: Hematologic/Lymphatic: Reports no additional hematologic/lymphatic complaints Allergic/Immunologic: Allergic/Immunologic: Reports no additional allergic/immunologic complaints [facility] Past Medical History Medical History (Updated 08/12/21 @ 16:54 by Ashly Mejía NP) Acute left flank pain Diverticulosis recently treated for diverticulitis. GERD (gastroesophageal reflux disease) Left sided abdominal pain Major depression, recurrent Malaise and fatigue Nicotine dependence in remission Obese Overweight Pain in left leg Pain in right leg Renal mass Sore throat Superficial sunburn Vitamin D deficiency Surgical History Surgical History (Updated 08/12/21 @ 16:46 by Ashly Mejía NP) H/O: section x2 History of partial hysterectomy (~2001) Hx of lithotripsy Family History Family History Father Malignant neoplasm of prostate Mother Breast cancer Grandparent
[2021-08-12] MEDS: DEXTROSE 5%/0.9% SOD CHL 1,000 ML 100 ML IV CONT (17:10)
[2021-08-12 20:00] VITALS: PULSE 60; RESP 16; O2SAT 98
[2021-08-12] MEDS: PANTOPRAZOLE SODIUM IV 40 MG VIAL IV PUSH (20:51)
[2021-08-12 21:36] VITALS: BP 109/56; PULSE 60; RESP 16; TEMP 36.5; O2SAT 98
[2021-08-13 04:00] VITALS: BP 114/60; PULSE 66; RESP 16; TEMP 36.1; O2SAT 95
[2021-08-13] MEDS: DEXTROSE 5%/0.9% SOD CHL 1,000 ML 100 ML IV CONT (04:35)
[2021-08-13 05:09] LABS: Basophils Absolute Auto 0.1 K/mm3 (0.0-0.1); Eosinophils Absolute Auto 0.2 K/mm3 (0-0.3); Hematocrit 39.4 % (37.0-47.0); Hemoglobin 12.7 g/dL (12.0-15.0); Immature Granulocyte Absolute 0.01 K/mm3 (0.00-0.031); Immature Granulocyte Percent A 0.2 % (0-0.5); Lymphocytes Percent Auto 32.8 % (18.3-44.2); Mean Corpuscular HGB Conc 32.2 g/dl (32-36); Mean Corpuscular Hemoglobin 28.3 pg (26-34); Mean Corpuscular Volume 87.8 fl (80-100); Monocytes Absolute Auto 0.5 K/mm3 (0.1-0.6); Neutrophils Absolute Auto 3.1 K/mm3 (1.3-6.7); Platelet Count Result 169 k/mm3 (150-375); Red Blood Count 4.49 M/mm3 (4.2-5.4); Red Cell Distribution Width 12.1 % (11.5-14.5); White Blood Count 5.8 K/mm3 (4.5-10.0)
[2021-08-13 05:19] LABS: Lactic Acid Reflex 0.9 mmol/L (0.7-2.1)
[2021-08-13 05:20] LABS: Alanine Aminotransferase 37 U/L (4-35); Albumin Level 3.6 g/dL (3.5-5.1); Alkaline Phosphatase 56 U/L (38-126); Anion Gap 4 mmol/L (8-16); Aspartate Amino Transferase 29 U/L (14-36); Bilirubin,Total 0.8 mg/dL (0.2-1.3); Blood Urea Nitrogen 12 mg/dL (7-17); Calcium 8.8 mg/dL (8.4-10.2); Carbon Dioxide 27 mmol/L (22-30); Chloride 109 mmol/L (98-107); Estimated Glomerular Filt Rate > 60; Glucose 110 mg/dL (65-110); Lactate Dehydrogenase 292 U/L (313-618); Lipase 125 U/L (23-300); Magnesium 1.9 mg/dL (1.6-2.3); Potassium 3.7 mmol/L (3.4-5.0); Sodium 140 mmol/L (137-145)
[2021-08-13 08:00] VITALS: BP 143/86; PULSE 67; RESP 16; TEMP 36.7; O2SAT 100
[2021-08-13] MEDS: PANTOPRAZOLE SODIUM IV 40 MG VIAL IV PUSH (08:49)
--- NOTE | 2021-08-13 10:05 | PM.CNGS ---
Assessment and Plan Assessment and plan (1) Abnormal CT scan, gallbladder: Code(s): R93.2 - Abnormal findings on diagnostic imaging of liver and biliary tract Status: Acute Assessment and Plan: CT scan reviewed and discussed with the patient in detail. She has evidence of gallbladder distention. No cholelithiasis seen on the CT scan or other findings suggesting cholecystitis. She has had a normal WBC count and LFTs are normal, except for slight increase in ALT. Her abdominal pain and vomiting has completely resolved as of this morning. A RUQ abdominal ultrasound and HIDA scan have been ordered for today. I discussed the pathophysiology of gallbladder disease and treatment options. Briefly discussed what a laparoscopic cholecystectomy entails, risks, benefits, expected outcomes, and recovery. All questions were answered. Will keep her NPO for testing and await the HIDA and ultrasound results to decipher further plan of care. Continue analgesics PRN if pain returns. Okay to start a low fat diet after tests are completed from our standpoint. Will follow along with you. (2) Upper abdominal pain: Code(s): R10.10 - Upper abdominal pain, unspecified Status: Acute Assessment and Plan: Resolved. See plan above. (3) Renal mass: Code(s): N28.89 - Other specified disorders of kidney and ureter Status: Chronic Assessment and Plan: 1.6 cm lower pole right renal mass noted on CT scan. This is known to the patient and she is following a Urologist in [place] who is following this. (4) GERD (gastroesophageal reflux disease): Code(s): K21.9 - Gastro-esophageal reflux disease without esophagitis Status: Acute Additional Plan I have discussed the patient's case and plan of care with Dr. Gonsalez. Thank you for allowing us to see the patient in consultation. History of Present Illness Consult details Consult date: 08/13/21 Reason for consult: other (Gallbladder distention and abdominal pain) Requesting physician: Ashly Mejía NP Narrative: This is a 56-year-old female who presented to [facility] yesterday twice with complaints upper abdominal pain and vomiting. She had epigastric and RUQ abdominal pain starting around 11:00 p.m. the night before. She reports having a large quantity of deep fried pork rinds during the day. She had multiple episodes of emesis and began having bloating and epigastric abdominal pain. This led her to the ER initially. CT scan of the abdomen and pelvis suggested gallbladder distension but no other findings suggesting cholecystitis. She also had a 15 mm right lower pole renal lesion, which is currently under investigation by Urology in [place]. Labs showed a white blood cell count of 9000, and normal LFTs other than a slightly elevated ALT of 61. Urinalysis negative for UTI. She had also recently been on Augmentin x 5 days for strep throat. She was discharged home and instructed to follow-up with her PCP. Her symptoms persisted, and she presented back to the ER later in the day. She was given pain medication and Zofran in the ER without much relief. Our service was then consulted by the ED physician in [place] due to her continued abdominal pain and gallbladder findings on the CT scan. The decision was made to directly admit the patient to the hospitalist service at [facility]. She is now seen on the medical floor. Labs have been repeated and WBC remains normal and LFTs normal. As of this morning, her abdominal pain has completely resolved. She denies any nausea or discomfort this morning. She does have a history kidney stones, reportedly on 11 separate occasions. She reports this pain is different than when she has had kidney stones in the past. She has never had this pain before. Denies fever or chills. No change in bowel habits. No other complaints at this time. Review of Systems Review of Systems: All systems reviewed & are unremarkable exce
--- NOTE | 2021-08-13 10:23 | PM.IMPN ---
Progress Note: A&P Assessment and Plan (1) Abnormal CT scan, gallbladder: Code(s): R93.2 - Abnormal findings on diagnostic imaging of liver and biliary tract Status: Acute Assessment and Plan: Presented with right upper quadrant and epigastric pain, as well as nausea and vomiting. CT abdomen/pelvis showed distended gallbladder Total bilirubin and LFTs within normal limits (ALT minimally elevated, essentially normalized today) RUQ US pending HIDA scan ordered; awaiting completion Appreciate general surgery consultation Supportive care, analgesics available as needed She is NPO for imaging, advance diet per general surgery following completion. Continue gentle IV fluids while NPO She has been started on Zosyn empirically for possible cholecystitis. (2) Abdominal pain: Qualifiers: Abdominal location: right upper quadrant Qualified Code(s): R10.11 - Right upper quadrant pain Code(s): R10.9 - Unspecified abdominal pain Status: Inactive Assessment and Plan: Resolved. Plan as above (3) Renal mass: Code(s): N28.89 - Other specified disorders of kidney and ureter Status: Chronic Assessment and Plan: CT abdomen/pelvis showed persistent 1.6 cm lower pole right renal mass She is being followed by urologist Dr. Evans, biopsy is being planned (4) GERD (gastroesophageal reflux disease): Code(s): K21.9 - Gastro-esophageal reflux disease without esophagitis Status: Acute Assessment and Plan: Asymptomatic at this time Continue IV protonix (5) Strep throat: Code(s): J02.0 - Streptococcal pharyngitis Status: Acute Assessment and Plan: Recently evaluated at PCP office for sore throat. Found to be positive for streptococcal pharyngitis on 08/06/2021 Has been on amoxicillin b.i.d. Ten day course prescribed. She is on IV Zosyn at this time. She has 2 more days of treatment. Will plan to put her back on p.o. amoxicillin if no need for Zosyn based on above evaluation Subjective Date/time seen: 08/13/21 10:23 Interval history: Date of service: 08/13/2021 Melita Leiva is a 56-year-old female with a history of depression and recent strep throat on antibiotic therapy since 08/06/2021 who is seen in follow-up for gallbladder distension and abdominal pain. At the time of my evaluation, she is feeling much better. She has no abdominal pain, epigastric pain, right upper quadrant pain at this time. She denies nausea or vomiting. Last night she was able to tolerate clear liquids. She has been NPO today. Her last bowel movement was 1 day ago. No diarrhea. She denies abdominal pain, cramping, or bloating. She urinary symptoms including dysuria or hematuria. She denies fevers or chills. No shortness breath, cough, chest pain, palpitations, dizziness, lightheadedness, weakness. Review of Systems Review of Systems: All systems reviewed & are unremarkable except as noted in HPI and below Exam Narrative: Ms. Leiva is a well-nourished, well-appearing 56-year-old female who is lying semi recumbent in bed. She appears comfortable and is in NARD. Neuro: awake, alert and oriented x4, speech clear, no focal neuro deficits noted HEENMT: normocephalic, atraumatic, EOMI, sclerae anicteric, moist oral mucosa Neck: supple, no lymphadenopathy Respiratory: clear to auscultation bilaterally, nonlabored breathing Cardio: regular rate, regular rhythm with S1-S2 Abdomen: nondistended, normoactive bowel sounds, soft, nontender to palpation, no RUQ or epigastric tenderness Extremities: no edema, erythema or tenderness to palpation, DP pulses 2+ bilaterally Skin: no rashes or lesions, warm and dry Psych: appropriate mood and affect, judgment and insight intact Objective Data Vital Signs Vital Signs: Vital Signs - 24 hr 08/12/21 15:40 08/12/21 20:00 08/12/21 21:36 Temperature 98.3 F 97.7 F Pulse Rate 59
[2021-08-13] MEDS: MORPHINE SULFATE (*CRX) 2 MG/ML INJ IV PUSH (12:10)
--- NOTE | 2021-08-13 16:28 | PM.DS ---
DS: Admitting Diagnosis Discharge Date 08/13/21 Admitting Diagnosis Abdominal pain DS: Discharge Diagnosis Discharge Diagnosis (1) Abnormal CT scan, gallbladder: Code(s): R93.2 - Abnormal findings on diagnostic imaging of liver and biliary tract Status: Acute Assessment and Plan: Presented with right upper quadrant and epigastric pain, as well as nausea and vomiting. CT abdomen/pelvis showed distended gallbladder Total bilirubin and LFTs within normal limits (ALT minimally elevated on presentation, improved and essentially normalized) RUQ US showed cholelithiasis with gallbladder wall thickening HIDA scan showed no activity identified in the gallbladder She was seen in consultation by General surgery She will follow-up in 2-3 weeks to schedule laparoscopic cholecystectomy She was able to tolerate a low-fat diet which she will continue (2) Abdominal pain: Qualifiers: Abdominal location: right upper quadrant Qualified Code(s): R10.11 - Right upper quadrant pain Code(s): R10.9 - Unspecified abdominal pain Status: Inactive Assessment and Plan: Secondary to above. Pain resolved entirely and she was able to tolerate her diet. (3) Renal mass: Code(s): N28.89 - Other specified disorders of kidney and ureter Status: Chronic Assessment and Plan: CT abdomen/pelvis showed persistent 1.6 cm lower pole right renal mass She is being followed by urologist Dr. Evans, biopsy is being planned She would like to time her renal biopsy with her cholecystectomy to avoid missing work for extended duration (4) GERD (gastroesophageal reflux disease): Code(s): K21.9 - Gastro-esophageal reflux disease without esophagitis Status: Acute Assessment and Plan: No issues. IV Protonix while inpatient. Continue PO Pepcid outpatient. (5) Strep throat: Code(s): J02.0 - Streptococcal pharyngitis Status: Acute Assessment and Plan: Recently evaluated at PCP office for sore throat. Found to be positive for streptococcal pharyngitis on 08/06/2021. She was started on amoxicillin PO bid for a 10 day course. Held during hospital stay when she received IV Zosyn for treatment of possible acute cholecystitis. Resume amoxicillin to complete course. DS: Summary Hospital Course Hospital Course: Date of admission: 08/12/2021 Date of discharge: 08/13/2021 Melita Leiva is a 56-year-old female with a history of depression, right renal mass being followed by Urology, and recent strep throat on antibiotic therapy who presented to outside hospital on 08/12/2021 with complaints of right upper quadrant and epigastric pain with associated nausea and vomiting. On presentation to the emergency department, her vital signs were stable, she was afebrile, CBC and BMP unremarkable, ALT minimally elevated with additional LFTs and total bilirubin within normal limits, and CT abdomen/pelvis showed distended gallbladder as well as persistent right renal mass. She was transferred to [facility] and admitted to the hospitalist service for general surgery consultation. Please see above for further details. She had RUQ ultrasound and HIDA scan which demonstrated signs of cholecystitis. She was feeling very well and able to tolerate her diet and requested discharge home. She will follow-up with General surgery in 2-3 weeks for laparoscopic cholecystectomy. She would like to time this surgery around her renal biopsy. I spoke with general surgeon, Dr. Gonsalez, who felt comfortable with plans for discharge and outpatient followup. She will continue a low fat diet. Given her overall improvement, she was determined to no longer require inpatient care and was felt to be stable for discharge. We discussed worrisome signs and symptoms for which to return and she was educated on her medications. She was discharged in hemodynamically stable condition on 08/13/2021 Status
== END 2021-08-13 17:22 | disposition home or self-care (01) ==
PROVIDERS: Nurse Practitioner; Admitting Provider Internal Medicine; PCP Nurse Practitioner Family; Visit Provider Physician Assistant
DX: K80.20 Calculus of gallbladder without cholecystitis without obstruction (principal); N20.0 Calculus of kidney; J02.0 Streptococcal pharyngitis; K21.9 Gastro-esophageal reflux disease without esophagitis; N28.89 Other specified disorders of kidney and ureter; R10.11 Right upper quadrant pain; Z87.891 Personal history of nicotine dependence
CPT/HCPCS: 36415; 76705; 78226; 80053; 82728; 83605; 83615; 83690; 83735; 84443; 85025; 96361; 96365; 96366; 96375; 96376; A9537; C9113; G0378; J2270; J2543; J7042

== ENCOUNTER → 2021-09-22 00:10 | Outpatient (CLI) | payer BC, SELFPAY ==
[2021-09-22 18:14] LABS: SARS-CoV-2 RNA PCR Negative
== END ==
PROVIDERS: PCP Nurse Practitioner Family; Visit Provider Surgery
DX: Z01.812 Encounter for preprocedural laboratory examination (principal); Z20.822 Contact with and (suspected) exposure to COVID-19
CPT/HCPCS: C9803; U0003; U0005

== ENCOUNTER 2021-09-22 08:26 | Outpatient (CLI) | payer BC, SELFPAY ==
[2021-09-22 09:48] LABS: Alanine Aminotransferase 29 U/L (4-35); Albumin Level 4.7 g/dL (3.5-5.1); Alkaline Phosphatase 67 U/L (38-126); Amylase 89 U/L (30-110); Aspartate Amino Transferase 28 U/L (14-36); Bilirubin,Total 0.6 mg/dL (0.2-1.3); Lipase 207 U/L (23-300)
== END 2021-09-22 08:27 | disposition home or self-care (01) ==
LOC: ANHLAB 08:28
PROVIDERS: PCP Nurse Practitioner Family; Visit Provider Surgery
DX: K81.9 Cholecystitis, unspecified (principal); Z01.818 Encounter for other preprocedural examination
CPT/HCPCS: 36415; 80076; 82150; 83690; 86850; 86900; 86901

== ENCOUNTER 2021-09-26 00:36 | Day surgery (SDC) | payer BC, SELFPAY ==
[2021-09-18 11:47] VITALS: BMI 29.2
--- NOTE | 2021-09-18 12:05 | PC.NURSE ---
Addendum entered by Jen Molina RN 09/18/21 12:12: [facility] SHOWER MORNING OF SURGERY Original Note: Report to the Outpatient Waiting Room, entrance under the green pavilion located off [facility], at time 6:30 on date 09/26/21. OR Time: 8:30. - You and your visitor will be asked a series of questions to screen for COVID 19 for your protection. - A mask is required within the hospital. - Only one visitor is allowed at this time. Patient visitors will be guided where to wait when not with patient. Preoperative COVID Testing Requirements: No COVID Test needed if: (proof is required; if not received patient will have Rapid Test prior to entry) - Patient has received COVID Vaccine at least 14 days prior to procedure date or - Patient has positive COVID test result within last 90 days of surgery date. COVID Test needed if above criteria is not met If not COVID vaccinated a COVID test must be conducted within 72 hours of surgery and patient is asked to isolate self from time of testing until procedure. You will go to the [facility] for your COVID testing. The [facility] site is located at the corner of [address] [facility]. COVID TEST 09/22 AT 8:30 You will only be called if COVID results are positive and your surgeon may reschedule your elective surgery date. Patients may have clear liquids (water, carbonated beverages, clear teas, apple juice) until 3 hours prior to surgery with a maximum of 20 ounces. - No food from midnight until time of surgery - Infants may have breast milk until 4 hours before surgery, formula 6 hours prior to surgery. - Children will be allowed to drink immediately following surgery. If applicable, please bring a bottle or sippy cup to assist with drinking. Juice, water, soda, and popsicles are readily available. For infants on formula, please bring formula the day of surgery. Pacifiers are allowed. Take the following medications with a SIP of water the morning of surgery: PAIN PILL (IF NEEDED) Medications to discontinue per physician: N/A Date to take last dose: N/A Please no make-up, nail [facility], hairspray, perfume, deodorant, or body powder the day of surgery. No jewelry (including any body piercings) or valuables the day of surgery, leave them at home. Please take a shower or bath the night before, or the morning of, surgery with an antibacterial soap. Wear comfortable, loose fitting clothing. Children are encouraged to wear pajamas. - Jewelry must be removed prior to entering the operating room. Rings and piercings that are not removed may be cut off. - The hospital will not accept responsibility for valuables. - Please leave all valuables, including medications, at home the day of surgery. If you are going home after surgery, a licensed city route driver must drive you home. - NO public transportation without another adult. - We recommend that an adult stay with you for 24 hours following discharge. - We also recommend that you do not drive, make important decision, drink alcoholic beverages, or take any drugs that were not prescribed by your health care provider for at least 24 hours after your discharge time. For Pediatric surgeries, we recommend two adults accompany the child home (only one inside the building at this time). Follow any additional instructions given to you from your surgeon. Telephone instructions given to YURI HERNANDEZ and asked if any additional questions and then verbalized understanding. Patient advised to call surgeon office or pre surgery nurse liaison [phone] if any additional questions.
--- NOTE | 2021-09-24 16:36 | PM.SD2 ---
Same Day Admit/Disch: HPI History of Present Illness Chief complaint: Cholecystitis Narrative: Melita Leiva is a 56 year old female Who presented to the emergency room on 08/13/2021. She had eaten numerous deep fried pork rinds and following this developed severe right upper quadrant abdominal pain and epigastric pain with vomiting. She was admitted to the hospital on 08/13. Ultrasound showed gallstones and evidence of inflammatory changes. She had a HIDA scan which showed nonvisualization of the gallbladder consistent with acute cholecystitis. Her pain completely resolved shortly after admission and she was able to tolerate oral intake. She was due to have a biopsy of a renal mass in the lower pole of her right kidney later that week. She opted to be discharged to proceed with her renal biopsy. She is taken to surgery at this time for laparoscopic cholecystectomy for cholecystitis with gallstones. She has not had any severe symptoms since her August episode. [facility] Past Medical History Medical History Acute left flank pain Diverticulosis recently treated for diverticulitis. GERD (gastroesophageal reflux disease) Left sided abdominal pain Major depression, recurrent Malaise and fatigue Nicotine dependence in remission Obese Overweight Pain in left leg Pain in right leg Renal mass Sore throat Superficial sunburn Vitamin D deficiency Surgical History Surgical History H/O: section x2 History of partial hysterectomy (~2001) Hx of lithotripsy Family History Family History Father Malignant neoplasm of prostate Mother Breast cancer Grandparent Uterine cancer Grandparent Stomach cancer Sibling Kidney malignancy Social History Social History Social History: , has 2 children the patient is a full code and desires to have her is a durable power employee benefits attorney for healthcare. The patient is a former smoker. She does not drink use marijuana or illicit drugs. 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 Gender identity (if verbalized by the patient): Female Spiritual care concerns: No Same Day Admit/Disch: Med Pre-admit Medications Home Medications Medication Instructions Recorded Confirmed Type hydrocodone 5 mg-acetaminophen 325 1 tablet PO DAILY PRN #10 tablet 08/31/21 09/26/21 Rx mg tablet famotidine 20 mg tablet 20 mg PO DAILY 09/07/21 09/26/21 History hydrocodone-acetaminophen 1 - 2 tablet PO Q6H PRN #12 tablet 09/26/21 Rx ketorolac 10 mg PO Q6H 4 Days #16 tablet 09/26/21 Rx Exam Const: General: comfortable, no acute distress, alert and awake HENMT: Head: normocephalic and atraumatic Mouth: Yes Normal oral and palatal mucosa present Eyes: Conjunctivae: conjunctivae normal Pupils: Equal, round and reactive pupils present EOM: EOMs intact bilaterally Neck: Neck: normal visual inspection, no lymphadenopathy and nontender Resp: Effort & Inspection: normal respiratory effort Auscultation: clear to auscultation bilaterally Cardio: Rate: regular rate Rhythm: regular rhythm Heart sounds: no gallops, no murmurs and no rubs GI: Inspection: non-distended GI Palp: Yes Soft to palpation, No Tenderness to palpation present (GI), No Hepatomegaly present and No Splenomegaly present
[2021-09-26] VITALS (9 sets, daily range): BP systolic 127–147; BP diastolic 54–85; PULSE 52–71; RESP 12–21; TEMP 36.2–36.8; O2SAT 96–100; BMI 30.5
[2021-09-26] MEDS: ACETAMINOPHEN 500 MG TABLET 1000 MG PO (06:59)
[2021-09-26] MEDS: KETOROLAC 15 MG/ML VIAL (*BKC) IV PUSH (07:00)
[2021-09-26] MEDS: LACTATED RINGERS 1,000 ML 30 ML IV CONT ×2 (07:05→09:19)
--- NOTE | 2021-09-26 07:40 | WPDANESEPPF ---
Anes - Initial Pre Proc Eval Procedure: Operation Date: 09/26/21 08:30 Proposed Procedures p Laparoscopic Cholecystectomy - Jad Gonsalez MD Date/Time: 09/26/21 07:40 Surgeon: Jad Gonsalez MD Pre Op Diagnosis: Cholecystitis Patient Data Age: 56 Gender: F Height: 1.55 m Weight: 73.4 kg Last Vital Signs Temp 36.8 C 09/26/21 06:42 Pulse 71 09/26/21 06:42 Resp 16 09/26/21 06:42 BP 144/85 H 09/26/21 06:42 Pulse Ox 100 09/26/21 06:42 Allergies Allergy/AdvReac Type Severity Reaction Status Date / Time No Known Allergies Allergy Verified 09/26/21 06:28 Home Medications Medication Instructions Recorded Confirmed Type hydrocodone 5 mg-acetaminophen 325 1 tablet PO DAILY PRN #10 tablet 08/31/21 09/26/21 Rx mg tablet famotidine 20 mg tablet 20 mg PO DAILY 09/07/21 09/26/21 History Patient hx anesthesia problems: none Family hx anesthesia problems: none Results Review: All pre-operative results and documents have been reviewed as part of the pre-operative evaluation. [facility] Past Medical History Medical History Acute left flank pain Diverticulosis recently treated for diverticulitis. GERD (gastroesophageal reflux disease) Left sided abdominal pain Major depression, recurrent Malaise and fatigue Nicotine dependence in remission Obese Overweight Pain in left leg Pain in right leg Renal mass Sore throat Superficial sunburn Vitamin D deficiency Surgical History Surgical History H/O: section x2 History of partial hysterectomy (~2001) Hx of lithotripsy Family History Family History Father Malignant neoplasm of prostate Mother Breast cancer Grandparent Uterine cancer Grandparent Stomach cancer Sibling Kidney malignancy Social History Social History Social History: , has 2 children the patient is a full code and desires to have her is a durable power commercial real estate attorney for healthcare. The patient is a former smoker. She does not drink use marijuana or illicit drugs. 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 Gender identity (if verbalized by the patient): Female Spiritual care concerns: No Anes - Eval Final PreProcedure Day of Procedure 09/26/21 07:40 Patient weight: obese Heart: regular rate and rhythm Lungs: decreased breath sounds Airway: Mallampati scale class II Neurological: alert and oriented Last oral intake: >/= 8 hours ASA classification: III Emergent: no Anesthetic plan: proceed Anesthesia type and monitoring: general ETT and standard monitoring Results Review: All pre-operative results and documents have been reviewed as part of the pre-operative evaluation. Informed Consent: The patient's anesthetic plan and its attendant risks and benefits were discussed with the patient/family/POA. Questions were solicited and answers provided to the satisfaction of the patient/family/POA.
--- NOTE | 2021-09-26 08:13 | WPDHPUPDATE1 ---
History and Physical Update Update Date/Time: 09/26/21 08:13 History and Physical has been reviewed, including an updated exam of the patient. There are NO changes in the patient's condition. Risks, benefits, and alternatives have been discussed and questions answered. Patient agrees to proceed with procedure.
[2021-09-26] MEDS: ceFAZolin 2 GM/D5W 50 ML 2 GM/50 ML BAG IVPB (08:21)
--- NOTE | 2021-09-26 09:22 | W.PM.PROC2 ---
Procedure Note - Detailed Date of Procedure 09/26/21 Pre-op Diagnosis Cholecystitis with cholelithiasis Post-op Diagnosis other (Chronic cholecystitis, cholelithiasis) Procedure Performed laparoscopic cholecystectomy Surgeon Jad Gonsalez MD [employer]era Bobby [employer] PATH THERAPIST Anesthesia general and local (0.5% bupivacaine) Indications Patient presented about a month ago with severe epigastric and right upper quadrant pain after eating a fatty meal. Ultrasound showed gallstones and HIDA scan showed evidence of acute cholecystitis. Her pain resolved and has not recurred. She has been on a low-fat diet. She is taken to surgery now for laparoscopic cholecystectomy. Findings Mild chronic inflammation. Multiple gallstones. No liver abnormalities. No biliary ductal dilatation. Description of Procedure Patient was taken to surgery and induced into general anesthesia. The abdomen is prepped and draped. Trocars were placed in the usual fashion using 0.5% Marcaine and applied Medical optical trocars. A 5 mm camera was used. The gallbladder was somewhat distended. It was decompressed with a laparoscopic aspirator. A Vicryl endoloop was used to close the cholecystotomy. There were numerous stones evident in the gallbladder. Gallbladder was then freed from omental adhesions and retracted anterosuperiorly. The lateral segment of the left lobe of the liver was larger than usual and curved to the right causing obstruction of our view of the triangle of Calot. A 5th port was placed in the left mid abdomen. Laparoscopic Kittner was then used to retract the lateral segment of the left lobe of the liver so that our visualization was good. We then retracted the gallbladder anterosuperiorly and place traction on the infundibulum. Dissection in the cholecystohepatic triangle revealed the cystic duct and cystic artery. The gallbladder was dissected off the liver at its lower 3rd. Critical view was achieved. We securely clipped and divided the cystic duct and cystic artery. We then dissected the gallbladder free of its peritoneal attachments to the liver. It was placed in Endo-Catch bag and extricated through the 10 11 epigastric trocar site. We then exposed the gallbladder fossa. Using irrigation and suctioning we cauterized any areas of bloody oozing from the liver bed. No significant bleeding occurred. We irrigated and suctioned the area several times. All looked good with no evidence of bleeding or bile leakage. We then evacuated CO2 and removed the trocar sleeves. Skin wounds were closed with subcuticular running 4-0 Monocryl skin suture. The wounds were dressed with Exofin surgical adhesive. Patient was awakened and taken to recovery in good condition. Sponge needle counts were correct x2. Estimated Blood Loss -5 Drains No Packing No Pathology yes (Gallbladder) Complications No immediate complications Condition stable Disposition PACU
[2021-09-26] MEDS: fentaNYL CITRATE INJ (*CRX) 100 MCG/2 ML VIAL 25 MCG IV PUSH ×2 (09:35→09:40)
[2021-09-26] MEDS: oxyCODONE HCL (*CRX) 5 MG TAB IR PO (10:21)
[2021-09-26] MEDS: ONDANSETRON INJ 4 MG/2 ML VIAL IV PUSH (10:41)
--- NOTE | 2021-09-26 11:27 | SUR.PHASEII ---
pt meets discharge criteria at 1100
--- NOTE | 2021-09-26 11:43 | SUR.PHASEII ---
pt offered additional antiemetics but pt refused and wanted to go home
== END 2021-09-26 11:38 | disposition home or self-care (01) ==
PROVIDERS: PCP Nurse Practitioner Family; Visit Provider Surgery
PROC: 0FT44ZZ Resection of Gallbladder, Percutaneous Endoscopic Approach (ICD-10-PCS; CPT 47562; principal; 2021-09-26 08:30)
DX: K80.10 Calculus of gallbladder with chronic cholecystitis without obstruction (principal); K31.9 Disease of stomach and duodenum, unspecified; K57.30 Diverticulosis of large intestine without perforation or abscess without bleeding; F32.9 Major depressive disorder, single episode, unspecified; N28.89 Other specified disorders of kidney and ureter; E55.9 Vitamin D deficiency, unspecified; Z87.891 Personal history of nicotine dependence; E66.9 Obesity, unspecified; Z68.30 Body mass index [BMI] 30.0-30.9, adult
CPT/HCPCS: 47562; 36415; 80076; 82150; 83690; 86850; 86900; 86901; 88304; A9270; C1713; C9803; J0690; J1100; J1885; J2250; J2370; J2405; J2704; J2710; J3010; J7120; U0003; U0005

== ENCOUNTER 2021-10-06 06:28 | Emergency (ER) | payer BC, SELFPAY ==
--- NOTE | ~2021-10-06 | XR_ITS ---
EXAMINATION: XR chest 1V portable DATE: 10/06/2021 07:11 INDICATION: Hypertension and left-sided chest pain TECHNIQUE: frontal view of the chest was obtained. COMPARISON: Chest radiograph dated 01/26/2021 FINDINGS: Small calcified nodule at the left costophrenic angle and calcified left hilar lymph nodes consistent with old granulomatous disease. Mild linear discoid atelectasis/scarring at the left lung base and e xtending laterally from the right hilum. No other airspace opacities, pulmonary edema, pleural effusi on or pneumothorax. The cardiomediastinal silhouette is normal. Mild scattered degenerative skeletal changes. IMPRESSION: 1. Mild discoid atelectasis in the right mid and left lower lung zones. Reviewed, dictated and finalized at location A. [facility] M[facility] OPERATOR
--- NOTE | 2021-10-06 06:34 | ECG_ITS ---
Measurements Intervals [place] Rate: 62 P: 38 CO: 147 QRS: -8 QRSD: 96 T: 44 QT: 418 QTc: 428 Interpretive Statements SINUS RHYTHM DELAYED PRECORDIAL R/S TRANSITION BORDERLINE ECG Electronically Signed On 10-06-2021 7:04:22 INTERVENTIONAL PAIN PHYSICIAN by Valerio Kern D.O.
[2021-10-06 06:50] VITALS: BP 157/81; PULSE 66; RESP 16; TEMP 36.8; O2SAT 95
[2021-10-06 07:19] LABS: Basophils Absolute Auto 0.06 K/mm3 (0.00-0.10); Basophils Percent Auto 1.1 % (0.0-1.0); Eosinophils Absolute Auto 0.53 K/mm3 (0.02-0.50); Eosinophils Percent Auto 9.9 % (1.0-6.0); Hematocrit 44.2 % (35.0-49.0); Hemoglobin 14.4 g/dL (12.0-15.0); Immature Granulocyte Absolute 0.02 K/mm3 (0.00-0.00); Immature Granulocyte Percent A 0.4 % (0.0-0.0); Lymphocytes Absolute Auto 1.59 K/mm3 (1.10-4.50); Lymphocytes Percent Auto 29.6 % (18.0-42.0); Mean Corpuscular HGB Conc 32.6 g/dL (32.0-36.0); Mean Corpuscular Hemoglobin 28.5 pg (27.0-31.0); Mean Corpuscular Volume 87.5 fL (78.0-102.0); Mean Platelet Volume 10.6 fl (9.2-11.8); Monocytes Percent Auto 7.4 % (2.0-11.0); Neutrophils Absolute Auto 2.8 K/mm3 (1.7-7.2); Neutrophils Percent Auto 51.6 % (50.0-70.0); Platelet Count Result 193 K/mm3 (150-420); Red Blood Count 5.05 M/mm3 (4.20-5.40); Red Cell Distribution Width 11.9 % (11.6-14.4); White Blood Count 5.4 K/mm3 (4.8-10.8)
--- NOTE | 2021-10-06 07:25 | PC.NURSE ---
resumed care from DONNA kraus. pt resting per cot . explained awaiting results. pt resting, declined warm blanket or any needs at this time.
[2021-10-06 07:37] LABS: Alanine Aminotransferase 45 U/L (14-59); Albumin Level 3.7 g/dL (3.4-5.0); Alkaline Phosphatase 95 U/L (46-116); Anion Gap 10 mmol/L (8-16); Aspartate Amino Transferase 18 U/L (15-37); Bilirubin,Total 0.4 mg/dL (0.00-1.00); Blood Urea Nitrogen 22 mg/dL (7-18); Calcium 9.1 mg/dL (8.5-10.1); Carbon Dioxide 26 mmol/L (21-32); Chloride 108 mmol/L (98-108); Estimated CRCL calculation 52 ml/min; Estimated Glomerular Filt Rate 60; Glucose 104 mg/dL (70-99); NT Pro B Type Natriuretic Pept 32 pg/mL (0-125); Osmolality Calculated 301 mOsm/kg (285-295); Potassium 4.1 mmol/L (3.5-5.1); Sodium 144 mmol/L (136-145); Total Protein 7.1 g/dL (6.4-8.2)
[2021-10-06 07:39] LABS: Troponin I 7.1 ng/L (0.00-60.4)
--- NOTE | 2021-10-06 08:07 | ED.CHESTPAIN ---
HPI - Chest Pain General Chief Complaint: Chest Pain Stated Complaint: chest discomfort/blood pressure high Source: patient Mode of arrival: ambulatory Limitations: no limitations History of Present Illness HPI narrative: this is 56-year-old female who presents with chest discomfort right-sided affecting her right clavicle currently this sensation has resolved with no shortness of breath no fever or chills no nausea or vomiting. The patient woke with some discomfort in her chest checked her blood pressure which was elevated and checked her blood pressure again 2minutes after initial evaluation and had increased to 190 systolic patient concerned and presented to the emergency department. Patient is status post cholecystectomy, has a kidney mass and is scheduled to have evaluation of that. Otherwise no fever chills currently no chest pain no shortness of breath patient does feel anxious no abdominal pain no dysuria. complaint: chest discomfort Onset (ago): hour(s) Timing of current episode: episodic and now resolved Prior episodes: No Onset: during rest and awoke with symptoms Pain location: right chest Pain radiation: none Severity: mild Quality: aching Related Data Home Medications Medication Instructions Recorded Confirmed famotidine 20 mg tablet 20 mg PO DAILY PRN 09/07/21 10/06/21 Allergies Allergy/AdvReac Type Severity Reaction Status Date / Time No Known Allergies Allergy Verified 10/03/21 08:40 Review of Systems Review of Systems: All systems reviewed & are unremarkable except as noted in HPI and below PMFSH Past Medical History Medical History Acute left flank pain Diverticulosis recently treated for diverticulitis. GERD (gastroesophageal reflux disease) Left sided abdominal pain Major depression, recurrent Malaise and fatigue Nicotine dependence in remission Obese Overweight Pain in left leg Pain in right leg Renal mass Sore throat Superficial sunburn Vitamin D deficiency Surgical History Surgical History H/O: section x2 History of partial hysterectomy (~2001) Hx of lithotripsy Family History Family History Father Malignant neoplasm of prostate Mother Breast cancer Grandparent Uterine cancer Grandparent Stomach cancer Sibling Kidney malignancy Social History Social History Social History: , has 2 children the patient is a full code and desires to have her is a durable power insurance defense attorney for healthcare. The patient is a former smoker. She does not drink use marijuana or illicit drugs. 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 Gender identity (if verbalized by the patient): Female Spiritual care concerns: No Exam Const: General: cooperative, healthy appearing, comfortable, no acute distress, well developed, alert, awake and Physically active HENMT: Head: normal to inspection Ears: hearing grossly normal bilaterally General nose exam: Normal external nose present Face and sinus: normal facial exam and sinuses nontender Mouth: Yes Normal oral and palatal mucosa present Throat: posterior oropharynx normal Eyes: General: appearance normal, both eyes and all related structures Neck: Neck: normal visual inspection, full ROM, no lymphadenopathy and no meningeal signs Chest: Chest palpation & in
[2021-10-06 08:17] VITALS: BP 129/73; PULSE 64; RESP 20; TEMP 37.1; O2SAT 96
== END 2021-10-06 08:21 | disposition home or self-care (01) ==
PROVIDERS: Emergency Provider Internal Medicine Critical Care Medicine; PCP Nurse Practitioner Family
DX: F41.9 Anxiety disorder, unspecified (principal); R07.89 Other chest pain
CPT/HCPCS: 36415; 71045; 80053; 83880; 84484; 85025; 93005; 99283; 99284

== ENCOUNTER 2021-11-06 12:30 | Outpatient (CLI) | payer OTHER, BC, SELFPAY ==
[2021-11-06 14:56] LABS: SARS-CoV-2 RNA PCR Negative (Negative)
== END 2021-11-06 12:31 | disposition home or self-care (01) ==
PROVIDERS: PCP Nurse Practitioner Family; Visit Provider Nurse Practitioner Family
DX: J02.9 Acute pharyngitis, unspecified (principal); Z20.822 Contact with and (suspected) exposure to COVID-19
CPT/HCPCS: C9803; U0003; U0005

== ENCOUNTER 2022-01-30 15:31 | Outpatient (CLI) | payer BC, SELFPAY ==
[2022-01-30 16:16] LABS: Basophils Absolute Auto 0.07 K/mm3 (0.00-0.10); Basophils Percent Auto 0.9 % (0.0-1.0); Eosinophils Absolute Auto 0.17 K/mm3 (0.02-0.50); Eosinophils Percent Auto 2.2 % (1.0-6.0); Hematocrit 49.7 % (35.0-49.0); Hemoglobin 16.2 g/dL (12.0-15.0); Immature Granulocyte Absolute 0.03 K/mm3 (0.00-0.00); Immature Granulocyte Percent A 0.4 % (0.0-0.0); Lymphocytes Percent Auto 24.7 % (18.0-42.0); Mean Corpuscular HGB Conc 32.6 g/dL (32.0-36.0); Mean Corpuscular Hemoglobin 27.9 pg (27.0-31.0); Mean Corpuscular Volume 85.5 fL (78.0-102.0); Mean Platelet Volume 10.4 fl (9.2-11.8); Monocytes Absolute Auto 0.48 K/mm3 (0.10-0.90); Monocytes Percent Auto 6.2 % (2.0-11.0); Neutrophils Absolute Auto 5.1 K/mm3 (1.7-7.2); Neutrophils Percent Auto 65.6 % (50.0-70.0); Platelet Count Result 256 K/mm3 (150-420); Red Blood Count 5.81 M/mm3 (4.20-5.40); Red Cell Distribution Width 12.1 % (11.6-14.4); White Blood Count 7.7 K/mm3 (4.8-10.8)
[2022-01-30 16:39] LABS: Alanine Aminotransferase 39 U/L (14-59); Albumin Level 4.3 g/dL (3.4-5.0); Alkaline Phosphatase 87 U/L (46-116); Anion Gap 10 mmol/L (8-16); Aspartate Amino Transferase 22 U/L (15-37); Bilirubin,Total 0.7 mg/dL (0.00-1.00); Blood Urea Nitrogen 19 mg/dL (7-18); Carbon Dioxide 27 mmol/L (21-32); Chloride 102 mmol/L (98-108); Estimated Glomerular Filt Rate 57; Glucose 104 mg/dL (70-99); Lipase 175 U/L (73-393); Osmolality Calculated 290 mOsm/kg (285-295); Potassium 3.8 mmol/L (3.5-5.1); Sodium 139 mmol/L (136-145); Total Protein 7.9 g/dL (6.4-8.2)
== END 2022-01-30 15:32 | disposition home or self-care (01) ==
LOC: CHSLAB 15:33
PROVIDERS: PCP Nurse Practitioner Family; Visit Provider Nurse Practitioner Family
DX: K57.32 Diverticulitis of large intestine without perforation or abscess without bleeding (principal)
CPT/HCPCS: 36415; 80053; 83690; 85025; 86141

== ENCOUNTER 2022-03-21 13:18 | Outpatient (CLI) | payer BC, SELFPAY ==
--- NOTE | ~2022-03-21 | US_ITS ---
EXAMINATION: US abdomen complete DATE: 03/21/2022 13:49 INDICATION: Abdominal pain. Diarrhea. TECHNIQUE: Multiple grayscale and Doppler ultrasound images of the abdomen were obtained. COMPARISON: Ultrasound 08/13/2021, CT abdomen and pelvis 08/12/2021 FINDINGS: The pancreas is obscured by bowel gas. The liver is normal without focal lesion. No liver s urface nodularity. There is normal flow in main portal vein. The gallbladder is absent. The common du ct is normal and measures 7 mm. Right kidney measures 10.0 x 4.0 x 3.6 cm. Left kidney measures 9.3 x 4.3 x 5.2 cm. The spleen is normal in size. Abdominal aorta is normal in caliber. Inferior vena cava is normal. IMPRESSION: 1. No etiology for the patient's symptoms. Reviewed, dictated and finalized at location A.
== END 2022-03-21 13:19 | disposition home or self-care (01) ==
LOC: CHSIMG 13:21
PROVIDERS: PCP Nurse Practitioner Family; Visit Provider Nurse Practitioner Family
DX: R19.7 Diarrhea, unspecified (principal); R10.13 Epigastric pain
CPT/HCPCS: 76700

== ENCOUNTER 2022-06-25 20:42 | Emergency (ER) | payer SELFPAY ==
--- NOTE | ~2022-06-25 | XR_ITS ---
EXAMINATION: XR chest 1V portable Exam Date/Time: 06/25/2022 21:32 CDT HISTORY: left chest discomfort Comparison: 10/06/2021. RESULT: Lines, tubes, and devices: None. Lungs and pleura: Right midlung scar/atelectasis, otherwise clear. Cardiomediastinal silhouette: Stable. Other: No acute osseous or upper abdominal finding. IMPRESSION: No acute cardiopulmonary process. Reviewed, dictated and finalized at location K.
[2022-06-25 20:50] VITALS: BP 158/91; PULSE 71; RESP 20; TEMP 36.3; O2SAT 98
--- NOTE | 2022-06-25 21:18 | ED.GENADULT ---
HPI - General Adult General Chief complaint: Unspecified Stated complaint: indigestion/elevated BP Time Seen by Provider: 06/25/22 21:17 Source: patient Mode of arrival: ambulatory History of Present Illness HPI narrative: 57-year-old female a history of gerd, right renal cancer, Major depression, developed -- indigestion without any vomiting -- elevated blood pressure for the past 1 hour. She took her blood pressure which was noted to be 157/99. She rested for a while and her repeat blood pressure was noted to be 174/104. -- Left chest discomfort under her left breast. She had a negative stress test 12 years ago. Her pain is intermittent which comes and goes without any relation to exercise. -- Numbness in her left arm. No shortness of breath. No fever or cough. Onset (ago): hour(s) ( Started 1 hour ago) Location: chest Radiation: extremity Severity: mild Relieving factors: none Exacerbating factors: none Associated symptoms: nausea/vomiting ( nausea without any vomiting.) Treatments prior to arrival: none Related Data Home Medications Medication Instructions Recorded Confirmed famotidine 20 mg tablet 20 mg PO DAILY PRN Acid Reflux 09/07/21 06/25/22 hydrocodone 5 mg-acetaminophen 325 1 - 2 tablet PO QID PRN Pain 06/25/22 06/25/22 mg tablet Allergies Allergy/AdvReac Type Severity Reaction Status Date / Time No Known Allergies Allergy Verified 06/25/22 21:20 Review of Systems Review of Systems: All systems reviewed & are unremarkable except as noted in HPI and below Constitutional: Constitutional: Reports as per HPI and Reports no additional constitutional complaints Eyes: Eyes: Reports as per HPI and Reports no additional eye complaints ENT: Reports system reviewed and no additional complaints, except as documented and Reports as per HPI Cardiovascular: Cardiovascular: Reports as per HPI, Reports no additional cardiovascular complaints and Reports chest pain ( Left chest discomfort.) Respiratory: Respiratory: Reports as per HPI and Reports no additional respiratory complaints Gastrointestinal: Gastrointestinal: Reports as per HPI and Reports no additional gastrointestinal complaints Genitourinary: Genitourinary: Reports no additional female genitourinary complaints and Reports as per HPI Musculoskeletal: Musculoskeletal: Reports no additional musculoskeletal complaints and Reports as per HPI Integumentary/Breasts: Skin/Breast: Reports system reviewed and no additional complaints, except as docu and Reports as per HPI Neurologic: Reports system reviewed and no additional complaints, except as documented and Reports as per HPI Psychiatric: Psychiatric: Reports no additional psychiatric complaints and Reports as per HPI Endocrine: Endocrine: Reports no additional endocrine complaints and Reports as per HPI Hematologic/Lymphatic: Hematologic/Lymphatic: Reports no additional hematologic/lymphatic complaints and Reports as per HPI Allergic/Immunologic: Allergic/Immunologic: Reports no additional allergic/immunologic complaints and Reports as per HPI [facility] Past Medical History Medical History Acute left flank pain Diverticulosis recently treated for diverticulitis. GERD (gastroesophageal reflux disease) Left sided abdominal pain Major depression, recurrent Malaise and fatigue Nicotine dependence in remission Obese Overweight Pain in left leg Pain in right leg Renal mass Sore throat Superficial sunburn Vitamin D deficiency Surgical History Surgical History H/O: section x2 History of partial hysterectomy (~2001) Hx laparoscopic cholecystectomy 09/26/21 Hx of lithotripsy Family History Family History Father Malignant neoplasm of prostate Mother Breast cancer Grandparent
[2022-06-25 21:30] VITALS: PULSE 74
[2022-06-25 21:48] LABS: Basophils Absolute Auto 0.06 K/mm3 (0.00-0.10); Basophils Percent Auto 0.8 % (0.0-1.0); Eosinophils Absolute Auto 0.26 K/mm3 (0.02-0.50); Eosinophils Percent Auto 3.3 % (1.0-6.0); Hematocrit 42.1 % (35.0-49.0); Hemoglobin 14.1 g/dL (12.0-15.0); Immature Granulocyte Absolute 0.03 K/mm3 (0.00-0.00); Immature Granulocyte Percent A 0.4 % (0.0-0.0); Lymphocytes Absolute Auto 1.95 K/mm3 (1.10-4.50); Lymphocytes Percent Auto 24.5 % (18.0-42.0); Mean Corpuscular HGB Conc 33.5 g/dL (32.0-36.0); Mean Corpuscular Volume 86.4 fL (78.0-102.0); Mean Platelet Volume 10.1 fl (9.2-11.8); Monocytes Absolute Auto 0.59 K/mm3 (0.10-0.90); Monocytes Percent Auto 7.4 % (2.0-11.0); Neutrophils Absolute Auto 5.1 K/mm3 (1.7-7.2); Neutrophils Percent Auto 63.6 % (50.0-70.0); Platelet Count Result 189 K/mm3 (150-420); Red Blood Count 4.87 M/mm3 (4.20-5.40); Red Cell Distribution Width 11.9 % (11.6-14.4)
[2022-06-25 21:50] VITALS: BP 156/90; PULSE 69; RESP 18; O2SAT 98
--- NOTE | 2022-06-25 22:03 | ECG_ITS ---
Measurements Intervals [place] Rate: 70 P: 33 FL: 152 QRS: -40 QRSD: 101 T: 23 QT: 419 QTc: 453 Interpretive Statements SINUS RHYTHM LEFT AXIS DEVIATION PATTERN CONSISTENT WITH PULMONARY DISEASE MINIMAL VOLTAGE CRITERIA FOR LVH, CONSIDER NORMAL VARIANT BORDERLINE ECG COMPARED TO ECG 10/06/2021 06:42:34 LEFT-AXIS DEVIATION NOW PRESENT Electronically Signed On 06-26-2022 15:56:28 CDT by Helder Wallace M.D.
[2022-06-25 22:04] LABS: INR 0.9; Partial Thromboplastin Time 24.9 SEC (23.90-30.70); Prothrombin Time 10.2 Seconds (9.50-12.10)
[2022-06-25 22:13] LABS: Alanine Aminotransferase 39 U/L (14-59); Albumin Level 3.9 g/dL (3.4-5.0); Alkaline Phosphatase 77 U/L (46-116); Anion Gap 6 mmol/L (8-16); Aspartate Amino Transferase 22 U/L (15-37); Bilirubin,Total 0.4 mg/dL (0.00-1.00); Blood Urea Nitrogen 17 mg/dL (7-18); Calcium 9.4 mg/dL (8.5-10.1); Carbon Dioxide 28 mmol/L (21-32); Chloride 105 mmol/L (98-108); Estimated CRCL calculation 49 ml/min; Estimated Glomerular Filt Rate 53; Glucose 96 mg/dL (70-99); NT Pro B Type Natriuretic Pept 15 pg/mL (0-125); Osmolality Calculated 289 mOsm/kg (285-295); Potassium 3.6 mmol/L (3.5-5.1); Sodium 139 mmol/L (136-145); Thyroid Stimulating Hormone 1.33 uIU/mL (0.36-3.74); Total Protein 6.8 g/dL (6.4-8.2); Troponin I 4.6 ng/L (0.00-60.4)
[2022-06-25 22:48] VITALS: BP 154/85; PULSE 76; RESP 16; TEMP 36.3; O2SAT 98
== END 2022-06-25 22:52 | disposition home or self-care (01) ==
PROVIDERS: Emergency Provider Internal Medicine Critical Care Medicine; PCP Nurse Practitioner Family
DX: I10 Essential (primary) hypertension (principal); R07.89 Other chest pain
CPT/HCPCS: 36415; 71045; 80053; 83880; 84443; 84484; 85025; 85610; 85730; 93005; 99284

== ENCOUNTER 2022-07-10 13:45 | Outpatient (CLI) | payer BC, SELFPAY ==
--- NOTE | ~2022-07-10 | CT_ITS ---
EXAMINATION: CT abdomen pelvis w con INDICATION: Right kidney cancer TECHNIQUE: Computed tomographic images of the abdomen and pelvis were obtained after the administrati on of 100 cc of Omnipaque 350 intravenous contrast. The dose-length product (DLP) was 825.10 mGy-cm. Automated exposure control and iterative reconstruction technique were employed. COMPARISON: 08/12/2021 FINDINGS: Minimal dependent atelectasis is present in the lung bases. The heart size is normal. There has been interval cholecystectomy. There is mild enlargement of the common bile duct and central int rahepatic ducts which is likely due to post cholecystectomy state. The liver, spleen, pancreas, and a drenal glands are normal. There is a 6 mm cyst of the left kidney upper pole. There are changes of in terval cryoablation in the lower pole of the right kidney at the site of the previously described cass id mass. The area measures soft tissue attenuation but does not demonstrate focal enhancement. No pat hologically enlarged abdominal or pelvic lymph nodes are identified. There is no free intraperitoneal gas or evidence of bowel obstruction. Colonic diverticulosis is present without evidence of divertic ulitis. The appendix is normal. There is moderate lumbar spondylosis. IMPRESSION: 1. Changes of cryoablation in the right kidney lower pole without abnormal enhancing mass identified. 2. Interval cholecystectomy. Reviewed, dictated and finalized at location B. IMPRESSION: 1. Changes of cryoablation in the right kidney lower pole without abnormal enha ncing mass identified. 2. Interval cholecystectomy.
== END 2022-07-10 13:46 | disposition home or self-care (01) ==
PROVIDERS: PCP Nurse Practitioner Family; Visit Provider Nurse Practitioner Family
DX: N28.89 Other specified disorders of kidney and ureter (principal)
CPT/HCPCS: 74177; Q9967

== ENCOUNTER 2022-10-23 16:59 | Outpatient (CLI) | payer SELFPAY ==
--- NOTE | 2022-10-23 17:01 | ECG_ITS ---
Measurements Intervals [place] Rate: 87 P: 34 CO: 141 QRS: -47 QRSD: 101 T: 30 QT: 381 QTc: 460 Interpretive Statements SINUS RHYTHM PATTERN CONSISTENT WITH PULMONARY DISEASE LEFT ANTERIOR FASCICULAR BLOCK [QRS AXIS <= -45, QR IN I, RS IN II] NONSPECIFIC ST ABNORMALITY ABNORMAL ECG COMPARED TO ECG 06/25/2022 21:36:25 LEFT ANTERIOR FASCICULAR BLOCK NOW PRESENT Electronically Signed On 10-24-2022 7:18:00 AUTO BRAKE TECHNICIAN by [place] Cao M.D.
[2022-10-23 17:16] LABS: Basophils Absolute Auto 0.09 K/mm3 (0.00-0.10); Basophils Percent Auto 1.2 % (0.0-1.0); Eosinophils Absolute Auto 0.17 K/mm3 (0.02-0.50); Eosinophils Percent Auto 2.2 % (1.0-6.0); Hematocrit 46.8 % (35.0-49.0); Hemoglobin 15.4 g/dL (12.0-15.0); Immature Granulocyte Absolute 0.03 K/mm3 (0.00-0.00); Immature Granulocyte Percent A 0.4 % (0.0-0.0); Lymphocytes Absolute Auto 2.43 K/mm3 (1.10-4.50); Lymphocytes Percent Auto 31.6 % (18.0-42.0); Mean Corpuscular HGB Conc 32.9 g/dL (32.0-36.0); Mean Corpuscular Hemoglobin 28.6 pg (27.0-31.0); Mean Platelet Volume 10.5 fl (9.2-11.8); Monocytes Absolute Auto 0.62 K/mm3 (0.10-0.90); Monocytes Percent Auto 8.1 % (2.0-11.0); Neutrophils Absolute Auto 4.3 K/mm3 (1.7-7.2); Neutrophils Percent Auto 56.5 % (50.0-70.0); Platelet Count Result 222 K/mm3 (150-420); Red Blood Count 5.38 M/mm3 (4.20-5.40); Red Cell Distribution Width 12.1 % (11.6-14.4); White Blood Count 7.7 K/mm3 (4.8-10.8)
[2022-10-23 17:39] LABS: Add Urine Microscopic? YES; Appearance Urine Clear (Clear); Bilirubin Urine Negative (Negative); Blood Urine 1+ (Negative); Color Urine Light Yellow (Yellow); Glucose Urine UA Negative (Negative); Ketones Urine Negative (Negative); Leukocyte Esterase Ur Negative LEU/UL (Negative); Nitrate Urine Negative (Negative); Protein Urine Negative (Negative); Specific Grav Ur 1.025 (1.010-1.020); Urobilinogen Urine 0.2 mg/dL (0.2-1.0)
[2022-10-23 17:47] LABS: Bacteria Urine Trace /hpf; RBC Urine 0-2 /hpf (0-2); Squamous Epithelial Cell Urine Rare /hpf (Few); WBC Urine 0-3 /hpf (0-3)
[2022-10-23 17:53] LABS: Alanine Aminotransferase 49 U/L (14-59); Albumin Level 4.4 g/dL (3.4-5.0); Alkaline Phosphatase 83 U/L (46-116); Anion Gap 11 mmol/L (8-16); Aspartate Amino Transferase 28 U/L (15-37); Bilirubin,Total 0.4 mg/dL (0.00-1.00); Blood Urea Nitrogen 21 mg/dL (7-18); Carbon Dioxide 28 mmol/L (21-32); Chloride 105 mmol/L (98-108); Estimated Glomerular Filt Rate 50; Glucose 101 mg/dL (70-99); Lipase 61 U/L (16-77); Osmolality Calculated 301 mOsm/kg (285-295); Potassium 4.5 mmol/L (3.5-5.1); Sodium 144 mmol/L (136-145); Total Protein 7.6 g/dL (6.4-8.2)
[2022-10-23 18:03] LABS: Calcium 10.1 mg/dL (8.5-10.1)
[2022-10-23 18:07] LABS: CRP < 0.5 mg/dL (0.0-0.9)
[2022-10-29 18:17] LABS: Alpha Fetoprotein Tumor Marker 6.2 ng/mL (<6.1)
== END 2022-10-23 17:00 | disposition home or self-care (01) ==
LOC: CHSLAB 17:01
PROVIDERS: PCP Nurse Practitioner Family; Visit Provider Nurse Practitioner Family
DX: K57.90 Diverticulosis of intestine, part unspecified, without perforation or abscess without bleeding (principal); R10.819 Abdominal tenderness, unspecified site; N28.89 Other specified disorders of kidney and ureter; R03.0 Elevated blood-pressure reading, without diagnosis of hypertension; R94.31 Abnormal electrocardiogram [ECG] [EKG]
CPT/HCPCS: 36415; 80053; 81001; 82105; 83690; 85025; 86140; 93005

== ENCOUNTER 2022-10-26 11:24 | Emergency (ER) | payer SELFPAY ==
--- NOTE | ~2022-10-26 | XR_ITS ---
EXAMINATION: XR chest 2V DATE: 10/26/2022 12:01 INDICATION: Left-sided chest pain radiating to the back TECHNIQUE: frontal and lateral views of the chest were obtained. COMPARISON: Chest radiograph dated 06/25/2022 and 01/26/2021 FINDINGS: Unchanged mild linear discoid atelectasis/scarring along the right minor fissure. No new airspace opa cities, pulmonary edema, pleural effusion or pneumothorax. The cardiomediastinal silhouette is normal . Cholecystectomy clips at the right upper quadrant. Mild thoracic spondylosis with chronic minimal t o mild anterior wedging of a few mid to lower thoracic vertebral bodies. IMPRESSION: 1. Chronic mild discoid atelectasis/scarring along the right minor fissure. No acute cardiopulmonary disease. Reviewed, dictated and finalized at location A. HANDLER
[2022-10-26 11:37] VITALS: BP 149/93; PULSE 73; RESP 17; TEMP 37.1; O2SAT 97
--- NOTE | 2022-10-26 11:44 | ECG_ITS ---
Measurements Intervals [place] Rate: 74 P: 44 [place]: 145 QRS: -56 QRSD: 106 T: 20 QT: 395 QTc: 438 Interpretive Statements SINUS RHYTHM BASELINE ARTIFACT IN V1 PATTERN CONSISTENT WITH PULMONARY DISEASE LEFT ANTERIOR FASCICULAR BLOCK ABNORMAL ECG COMPARED TO ECG 10/23/2022 17:19:34 NO SIGNIFICANT CHANGES Electronically Signed On 10-26-2022 13:29:53 FURS SALESPERSON by Helder Wallace M.D.
--- NOTE | 2022-10-26 11:44 | ED.CHESTPAIN ---
HPI - Chest Pain General Chief Complaint: Chest Pain Stated Complaint: SOB, pain in L ribs, L arm feels different Time Seen by Provider: 10/26/22 11:27 History of Present Illness HPI narrative: This is a 57-year-old female with past medical history of right-sided kidney cancer and GERD, who presents to the emergency department complaining of left flank discomfort for the past 4 hours. She states the sensation is tight, rated 4 out of 10, does not radiate and is aggravated by deep breathing. She states this is not aggravated by physical exertion and is not associated with abdominal pain, nausea or cold sweats. She states she has chronic cough productive of mucus without blood that has not changed. She has no other complaints today. Related Data Home Medications Medication Instructions Recorded Confirmed sertraline 25 mg tablet 25 mg PO DAILY 10/26/22 10/26/22 Allergies Allergy/AdvReac Type Severity Reaction Status Date / Time No Known Allergies Allergy Verified 10/26/22 12:46 Review of Systems Review of Systems: CONSTITUTIONAL: Denies fever, chills, or sweats. CARDIOVASCULAR: Left chest discomfort denies palpitations, or edema. RESPIRATORY: Chronic cough productive of yellow sputum without blood denies dyspnea. GASTROINTESTINAL: Denies abdominal pain, nausea, vomiting, or diarrhea. GENITOURINARY: Denies dysuria or hematuria. SKIN: Denies rash or itching. MUSCULOSKELETAL: Denies back pain, joint pain, or myalgia. NEUROLOGIC: Denies headache, numbness, dizziness, or weakness. PSYCHIATRIC: Denies anxiety or depression. [facility] Past Medical History Medical History Acute left flank pain Diarrhea Diverticulosis recently treated for diverticulitis. Elevated blood pressure reading Encounter for surgical aftercare following surgery on the digestive system GERD (gastroesophageal reflux disease) Hematuria Left sided abdominal pain LLQ abdominal pain Major depression, recurrent Malaise and fatigue Nicotine dependence in remission Obese Overweight Pain in left leg Pain in right leg Renal mass Right low back pain Screening for malignant neoplasm of breast Screening for malignant neoplasm of cervix Shingles Sore throat Sore throat Strain of flexor muscle of left hip Strep throat Superficial sunburn Suprapubic pain URI (upper respiratory infection) UTI (urinary tract infection) Vitamin D deficiency Surgical History Surgical History H/O: section x2 History of partial hysterectomy (~2001) Hx laparoscopic cholecystectomy 09/26/21 Hx of lithotripsy Family History Family History Father Malignant neoplasm of prostate Mother Breast cancer Grandparent Uterine cancer Grandparent Stomach cancer Sibling Kidney malignancy Social History Social History Social History: , has 2 children the patient is a full code and desires to have her is a durable power coverstitch binder for healthcare. The patient is a former smoker. She does not drink use marijuana or illicit drugs. Code status full code Smoking packs per day: 1 Smoking cigarettes per day: 20.0 Years smoked: 5 Smoking pack-years: 5.00 Smoking status: Former smoker Tobacco type: cigarettes Smoking end date: 11/03/02 Alcohol intake: never Alcohol use details: social Substance use: never Substance use type: does not use Lack of Transportation: No Current Housing: I Have Housing Concerned About Future Housing: No Difficulty Paying Gas/Electric Bills: No Difficulty Paying for Meds: No Currently Unemployed: No Education: High School Diploma/GED Difficulty w/ Childcare or Family Care: No Additional occupation/education comments: Works for [employer]. She works
[2022-10-26 11:45] VITALS: O2SAT 94
[2022-10-26 11:46] VITALS: PULSE 72
[2022-10-26 11:55] LABS: Basophils Absolute Auto 0.06 K/mm3 (0.00-0.10); Basophils Percent Auto 0.9 % (0.0-1.0); Eosinophils Absolute Auto 0.13 K/mm3 (0.02-0.50); Eosinophils Percent Auto 1.9 % (1.0-6.0); Immature Granulocyte Absolute 0.02 K/mm3 (0.00-0.00); Immature Granulocyte Percent A 0.3 % (0.0-0.0); Lymphocytes Absolute Auto 1.46 K/mm3 (1.10-4.50); Lymphocytes Percent Auto 20.8 % (18.0-42.0); Mean Corpuscular HGB Conc 32.6 g/dL (32.0-36.0); Mean Corpuscular Hemoglobin 28.4 pg (27.0-31.0); Mean Corpuscular Volume 87.1 fL (78.0-102.0); Mean Platelet Volume 10.4 fl (9.2-11.8); Monocytes Absolute Auto 0.53 K/mm3 (0.10-0.90); Monocytes Percent Auto 7.5 % (2.0-11.0); Neutrophils Absolute Auto 4.8 K/mm3 (1.7-7.2); Neutrophils Percent Auto 68.6 % (50.0-70.0); Platelet Count Result 210 K/mm3 (150-420); Red Blood Count 5.28 M/mm3 (4.20-5.40); Red Cell Distribution Width 12.1 % (11.6-14.4)
[2022-10-26 12:13] LABS: Influenza A QL RT-PCR Negative (Negative); Influenza B QL RT-PCR Negative (Negative); RSV RNA, RT-PCR Negative (Negative); SARS-CoV-2 RNA PCR Negative (Negative)
[2022-10-26 12:16] LABS: Alanine Aminotransferase 49 U/L (14-59); Albumin Level 4.2 g/dL (3.4-5.0); Alkaline Phosphatase 76 U/L (46-116); Anion Gap 8 mmol/L (8-16); Aspartate Amino Transferase 26 U/L (15-37); Bilirubin,Total 0.6 mg/dL (0.00-1.00); Blood Urea Nitrogen 16 mg/dL (7-18); Calcium 9.3 mg/dL (8.5-10.1); Carbon Dioxide 28 mmol/L (21-32); Chloride 105 mmol/L (98-108); Estimated CRCL calculation 51 ml/min; Estimated Glomerular Filt Rate 54; Glucose 103 mg/dL (70-99); Osmolality Calculated 293 mOsm/kg (285-295); Sodium 141 mmol/L (136-145); Total Protein 7.5 g/dL (6.4-8.2); Troponin I < 4.0 ng/L (0.00-60.4)
[2022-10-26 12:43] VITALS: BP 142/89; PULSE 88; RESP 18; TEMP 36.8; O2SAT 96
== END 2022-10-26 13:12 | disposition home or self-care (01) ==
PROVIDERS: Emergency Provider Preventive Medicine Aerospace Medicine
DX: R09.1 Pleurisy (principal); Z85.528 Personal history of other malignant neoplasm of kidney; Z87.891 Personal history of nicotine dependence; Z20.822 Contact with and (suspected) exposure to COVID-19
CPT/HCPCS: 36415; 71046; 80053; 84484; 85025; 87637; 93005; 99284

== ENCOUNTER 2022-10-31 11:16 | Outpatient (CLI) | payer SELFPAY | END 2022-10-31 11:17 | disposition home or self-care (01) | LOC: CHSLAB 11:17 | PROVIDERS: PCP Nurse Practitioner Family; Visit Provider Nurse Practitioner Family | DX: R19.7 Diarrhea, unspecified (principal) | CPT/HCPCS: 87324 ==

== ENCOUNTER 2023-03-28 14:54 | Outpatient (CLI) | payer SELFPAY ==
[2023-03-28 15:38] LABS: Alanine Aminotransferase 46 U/L (14-59); Albumin Level 4.4 g/dL (3.4-5.0); Alkaline Phosphatase 77 U/L (46-116); Anion Gap 9 mmol/L (8-16); Aspartate Amino Transferase 23 U/L (15-37); Bilirubin,Total 0.5 mg/dL (0.00-1.00); Blood Urea Nitrogen 20 mg/dL (7-18); Calcium 9.9 mg/dL (8.5-10.1); Carbon Dioxide 29 mmol/L (21-32); Chloride 107 mmol/L (98-108); Estimated Glomerular Filt Rate 58; Glucose 92 mg/dL (70-99); Osmolality Calculated 302 mOsm/kg (285-295); Potassium 4.3 mmol/L (3.5-5.1); Sodium 145 mmol/L (136-145); Total Protein 7.6 g/dL (6.4-8.2)
[2023-03-28 16:40] LABS: Hematocrit 48.1 % (35.0-49.0); Hemoglobin 15.4 g/dL (12.0-15.0); Mean Corpuscular Hemoglobin 28.1 pg (27.0-31.0); Mean Corpuscular Volume 87.8 fL (78.0-102.0); Mean Platelet Volume 11.4 fl (9.2-11.8); Platelet Count Result 227 K/mm3 (150-420); Red Blood Count 5.48 M/mm3 (4.20-5.40); White Blood Count 8.1 K/mm3 (4.8-10.8)
[2023-03-28 17:14] LABS: Cholesterol 138 mg/dL (0-200); HDL Direct 44 mg/dL (40-60); LDL Cholesterol Calculated 59 mg/dL (<130); Triglycerides 175 mg/dL (0-150)
[2023-03-28 17:19] LABS: CRP < 0.5 mg/dL (0.0-0.9)
== END 2023-03-28 14:55 | disposition home or self-care (01) ==
LOC: CHSLAB 14:55
PROVIDERS: PCP Nurse Practitioner Family; Visit Provider Nurse Practitioner Family
DX: I10 Essential (primary) hypertension (principal); R14.0 Abdominal distension (gaseous); R10.32 Left lower quadrant pain
CPT/HCPCS: 36415; 80053; 80061; 84443; 85027; 86140

== ENCOUNTER 2023-04-22 09:45 | Outpatient (CLI) | payer SELFPAY ==
[2023-04-22 09:58] LABS: Appearance Urine Clear (Clear); Bilirubin Urine Negative (Negative); Blood Urine 3+ (Negative); Color Urine Light Yellow (Yellow); Glucose Urine UA Negative (Negative); Ketones Urine Negative (Negative); Leukocyte Esterase Ur Negative LEU/UL (Negative); Nitrate Urine Negative (Negative); Protein Urine Negative (Negative); Specific Grav Ur >= 1.030 (1.010-1.020); Urobilinogen Urine 0.2 mg/dL (0.2-1.0)
[2023-04-22 10:06] LABS: Add Urine Microscopic? YES; Bacteria Urine Trace /hpf; Mucus Urine Few /lpf; Squamous Epithelial Cell Urine Rare /hpf (Few); WBC Urine None seen /hpf (0-3)
== END 2023-04-22 09:46 | disposition home or self-care (01) ==
LOC: CHSLAB 09:47
PROVIDERS: PCP Nurse Practitioner Family; Visit Provider Nurse Practitioner Family
DX: R10.9 Unspecified abdominal pain (principal)
CPT/HCPCS: 81001

== ENCOUNTER 2023-07-01 10:32 | Outpatient (CLI) | payer SELFPAY ==
--- NOTE | 2023-07-01 10:44 | ECG_ITS ---
Measurements Intervals [place] Rate: 75 P: 40 [place]: 153 QRS: -33 QRSD: 100 T: 4 QT: 404 QTc: 453 Interpretive Statements SINUS RHYTHM LEFT AXIS DEVIATION [QRS AXIS < -30] POOR R-WAVE PROGRESSION LEFT ANTERIOR SUPERIOR FASCICULAR BLOCK ABNORMAL ECG COMPARED TO ECG 10/26/2022 11:44:33 NO SIGNIFICANT DIFFERENCE Electronically Signed On 07-01-2023 12:24:14 CDT by Akhil Banks M.D.
[2023-07-01 10:55] LABS: Basophils Absolute Auto 0.07 K/mm3 (0.00-0.10); Eosinophils Absolute Auto 0.14 K/mm3 (0.02-0.50); Hematocrit 48.6 % (35.0-49.0); Hemoglobin 15.9 g/dL (12.0-15.0); Immature Granulocyte Absolute 0.02 K/mm3 (0.00-0.00); Immature Granulocyte Percent A 0.3 % (0.0-0.0); Lymphocytes Absolute Auto 1.73 K/mm3 (1.10-4.50); Lymphocytes Percent Auto 25.3 % (18.0-42.0); Mean Corpuscular HGB Conc 32.7 g/dL (32.0-36.0); Mean Corpuscular Hemoglobin 28.6 pg (27.0-31.0); Mean Corpuscular Volume 87.4 fL (78.0-102.0); Mean Platelet Volume 10.5 fl (9.2-11.8); Monocytes Absolute Auto 0.54 K/mm3 (0.10-0.90); Monocytes Percent Auto 7.9 % (2.0-11.0); Neutrophils Absolute Auto 4.4 K/mm3 (1.7-7.2); Neutrophils Percent Auto 63.5 % (50.0-70.0); Platelet Count Result 216 K/mm3 (150-420); Red Blood Count 5.56 M/mm3 (4.20-5.40); Red Cell Distribution Width 12.1 % (11.6-14.4); White Blood Count 6.9 K/mm3 (4.8-10.8)
[2023-07-01 11:04] LABS: Hemoglobin A1C 5.3 % (<5.7)
[2023-07-01 11:59] LABS: Chloride 105 mmol/L (98-108); Potassium 4.5 mmol/L (3.5-5.1); Sodium 143 mmol/L (136-145)
[2023-07-01 12:00] LABS: Alanine Aminotransferase 78 U/L (14-59); Albumin Level 4.6 g/dL (3.4-5.0); Alkaline Phosphatase 67 U/L (46-116); Anion Gap 9 mmol/L (8-16); Aspartate Amino Transferase 29 U/L (15-37); Bilirubin,Total 0.8 mg/dL (0.00-1.00); Blood Urea Nitrogen 18 mg/dL (7-18); Calcium 9.9 mg/dL (8.5-10.1); Carbon Dioxide 29 mmol/L (21-32); Cholesterol 108 mg/dL (0-200); Estimated Glomerular Filt Rate 57; Glucose 89 mg/dL (70-99); HDL Direct 44 mg/dL (40-60); LDL Cholesterol Calculated 48 mg/dL (<130); NT Pro B Type Natriuretic Pept 17 pg/mL (0-125); Osmolality Calculated 296 mOsm/kg (285-295); Thyroid Stimulating Hormone 1.26 uIU/mL (0.36-3.74); Total Protein 7.7 g/dL (6.4-8.2); Triglycerides 81 mg/dL (0-150)
[2023-07-02 17:20] LABS: Lipase 56 U/L (16-77)
== END 2023-07-01 10:33 | disposition home or self-care (01) ==
LOC: CHSLAB 10:34
PROVIDERS: PCP Nurse Practitioner Family; Visit Provider Nurse Practitioner Family
DX: R10.12 Left upper quadrant pain (principal); I45.2 Bifascicular block; R94.31 Abnormal electrocardiogram [ECG] [EKG]
CPT/HCPCS: 36415; 80053; 80061; 82553; 83036; 83690; 83880; 84443; 85025; 93005

== ENCOUNTER 2023-11-25 18:01 | Emergency (ER) | payer OTHER, SELFPAY ==
--- NOTE | ~2023-11-25 | XR_ITS ---
EXAMINATION: XR abdomen/kub 1V DATE: 11/25/2023 19:36 INDICATION: Bilateral low back pain. Kidney stones. TECHNIQUE: A supine view of the abdomen on 3 radiographs was obtained. COMPARISON: CT abdomen and pelvis 07/10/2022 FINDINGS: There are no dilated loops of bowel. There is a small volume of stool in the colon. There a re phleboliths in the pelvis. IMPRESSION: 1. No visible urolithiasis. 2. Normal bowel gas pattern. Reviewed, dictated and finalized at location E. DESIGNER
[2023-11-25 18:01] VITALS: BP 152/99; PULSE 99; RESP 18; TEMP 36.7; O2SAT 100
--- NOTE | 2023-11-25 18:25 | ED.GENADULT ---
HPI - General Adult General Chief complaint: Back Pain/Injury Stated complaint: back pain Time Seen by Provider: 11/25/23 18:11 History of Present Illness HPI narrative: 58yo woman presents with severe low back pain, bilateral radiation into the buttocks, new onset last night after cleaning her house and then it became much worse today and seized her back up about 3 hours ago. Unable to find a comfortable position. No fevers, chills, rash. No focal numbness or weakness. Related Data Allergies Allergy/AdvReac Type Severity Reaction Status Date / Time No Known Allergies Allergy Verified 11/25/23 18:03 Review of Systems Review of Systems: All systems reviewed & are unremarkable except as noted in HPI and below Constitutional: Constitutional: Denies fever(s) ENT: Denies dysphagia Cardiovascular: Cardiovascular: Denies chest pain Respiratory: Respiratory: Denies dyspnea Gastrointestinal: Gastrointestinal: Denies abdominal pain Musculoskeletal: Musculoskeletal: Reports back pain PMFSH Past Medical History Medical History Acute left flank pain Diarrhea Diverticulosis recently treated for diverticulitis. Elevated blood pressure reading Encounter for surgical aftercare following surgery on the digestive system GERD (gastroesophageal reflux disease) Hematuria Left sided abdominal pain LLQ abdominal pain Major depression, recurrent Malaise and fatigue Nicotine dependence in remission Obese Overweight Pain in left leg Pain in right leg Renal mass Right low back pain Screening for malignant neoplasm of breast Screening for malignant neoplasm of cervix Shingles Sore throat Sore throat Strain of flexor muscle of left hip Strep throat Superficial sunburn Suprapubic pain URI (upper respiratory infection) UTI (urinary tract infection) Vitamin D deficiency Surgical History Surgical History H/O: section x2 History of partial hysterectomy (~2001) Hx laparoscopic cholecystectomy 09/26/21 Hx of lithotripsy Family History Family History Father Malignant neoplasm of prostate Mother Breast cancer Grandparent Uterine cancer Grandparent Stomach cancer Sibling Kidney malignancy Social History Social History Social History: , has 2 children the patient is a full code and desires to have her is a durable power assistant county attorney for healthcare. The patient is a former smoker. She does not drink use marijuana or illicit drugs. Code status full code Smoking packs per day: 1 Smoking cigarettes per day: 20.0 Years smoked: 5 Smoking pack-years: 5.00 Smoking status: Former smoker Tobacco type: cigarettes Smoking end date: 11/03/02 Alcohol intake: never Alcohol use details: social Substance use: never Substance use type: does not use Lack of Transportation: No Current Housing: I Have Housing Concerned About Future Housing: No Difficulty Paying Gas/Electric Bills: No Difficulty Paying for Meds: No Currently Unemployed: No Education: High School Diploma/GED Difficulty w/ Childcare or Family Care: No Living arrangements: with family Occupation/Education: occupation Additional occupation/education comments: 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 Gender identity (if verbalized by the patient): Female Spiritual care concerns: No Exam Const: General: healthy appearing Nutritional Appearance: well nourished Other: obvious severe discomfort, walking gingerly about room trying to find a comfortable position HENMT: Head: normal to inspection Eyes: Conjunctivae: conjunctivae normal Resp: Effort & Inspection: normal respiratory effort Cardio: Rate: regu
[2023-11-25] MEDS: ORPHENADRINE CITRATE 30 MG/ML 2 ML VIAL 60 MG IM (18:32)
[2023-11-25] MEDS: ACETAMINOPHEN 500 MG TABLET 1000 MG PO (18:32)
[2023-11-25] MEDS: methocarbamoL 500 MG TABLET 1000 MG PO (18:32)
[2023-11-25] MEDS: KETOROLAC (*BKC) 60 MG/2 ML VIAL IM (18:34)
[2023-11-25 18:44] LABS: Appearance Urine Clear (Clear); Bilirubin Urine Negative (Negative); Blood Urine 1+ (Negative); Color Urine Yellow (Yellow); Glucose Urine UA Negative (Negative); Ketones Urine Negative (Negative); Leukocyte Esterase Ur Negative LEU/UL (Negative); Nitrate Urine Negative (Negative); Protein Urine Negative (Negative); Specific Grav Ur >= 1.030 (1.010-1.020); Urobilinogen Urine 0.2 mg/dL (0.2-1.0); pH Urine 5.5 (5.0-8.0)
[2023-11-25 18:47] LABS: Add Urine Microscopic? YES; Calcium Oxalate Crystals Urine Present /hpf; Squamous Epithelial Cell Urine Few /hpf (Few); WBC Urine 0-3 /hpf (0-3)
[2023-11-25 18:48] LABS: Bacteria Urine 1+ /hpf; Mucus Urine Few /lpf
[2023-11-25] MEDS: CEPHALEXIN 500 MG CAPSULE PO (20:05)
[2023-11-25 20:09] VITALS: BP 134/90; PULSE 86; RESP 18; O2SAT 96
== END 2023-11-25 20:10 | disposition home or self-care (01) ==
PROVIDERS: Emergency Provider Emergency Medicine; PCP Nurse Practitioner Family
DX: M54.42 Lumbago with sciatica, left side (principal); M54.41 Lumbago with sciatica, right side; N30.01 Acute cystitis with hematuria; Z87.891 Personal history of nicotine dependence
CPT/HCPCS: 74018; 81001; 96372; 99284; A9270; J1885; J2360

== ENCOUNTER 2023-11-27 09:30 | Outpatient (CLI) | payer SELFPAY ==
--- NOTE | ~2023-11-27 | XR_ITS ---
EXAMINATION: XR lumbar spine 2-3V DATE: 11/27/2023 09:45 INDICATION: Low back pain. TECHNIQUE: 3 views of lumbar spine were obtained. COMPARISON: CT abdomen and pelvis 07/10/22 FINDINGS: There is 8 degrees dextrocurvature of lumbar spine. There is mild chronic anterior wedging of T11 vertebral body. There is mildly decreased disc height at T10-T11, T11-T12, and L4-L5. There ar e endplate osteophytes at all levels. There is severe facet joint osteoarthritis in lower lumbar spin e. IMPRESSION: 1. Mild lumbar spondylosis. Reviewed, dictated and finalized at location E. GING MANIPULATOR IMPRESSION: 1. Mild lumbar spondylosis.
== END 2023-11-27 09:31 | disposition home or self-care (01) ==
PROVIDERS: PCP Nurse Practitioner Family; Visit Provider Nurse Practitioner Family
DX: M54.50 Low back pain, unspecified (principal); M43.06 Spondylolysis, lumbar region
CPT/HCPCS: 72100

== ENCOUNTER 2024-01-30 15:17 | Outpatient (NON) | payer OTHER, SELFPAY | END 2024-01-30 15:18 | disposition home or self-care (01) | PROVIDERS: Visit Provider Nurse Practitioner Family | DX: L08.9 Local infection of the skin and subcutaneous tissue, unspecified (principal) | CPT/HCPCS: 87070; 87075; 87205 ==

== ENCOUNTER 2024-03-05 11:42 | Emergency (ER) | payer OTHER, SELFPAY ==
[2024-03-05 11:42] VITALS: BP 138/90; PULSE 97; RESP 16; TEMP 36.4; O2SAT 95
--- NOTE | 2024-03-05 11:52 | ED.ANIMALBIT ---
HPI - Animal Bite General Chief Complaint: Animal Bite Stated Complaint: cat scratches Time Seen by Provider: 03/05/24 11:51 Source: patient Mode of arrival: ambulatory Limitations: no limitations History of Present Illness HPI narrative: patient is a 58-year-old female with a left lower extremity multiple cat scratches due to a provoked event. The dog came out while she was petting the cat who is also at this time. The cat got scared and scratched her up and down the leg on the left lower extremity. Last tetanus shot was 2018 according to the chart. MD complaint: animal-related injury ( Cat scratches left lower extremity) Onset (ago): hour(s) (1) Animal: cat ( scratches and not bites) Description of animal: wild animal ( feral cat in her backyard chronically) Mechanism: scratch Location: other ( left lower extremity) Location - Extremities: Left: thigh and lower leg Pain description: sharp Severity scale (1-10): 1 Context: playing with animal, animals fighting and provoked Associated symptoms: none Related Data Patient tetanus UTD: Yes ( 2018) Home Medications Medication Instructions Recorded Confirmed aspirin 81 mg tablet,delayed 81 mg PO DAILY 01/30/24 01/30/24 release (Adult Aspirin Regimen) Allergies Allergy/AdvReac Type Severity Reaction Status Date / Time No Known Allergies Allergy Verified 02/18/24 15:07 Review of Systems Review of Systems: All systems reviewed & are unremarkable except as noted in HPI and below Constitutional: Constitutional: Reports no additional constitutional complaints Eyes: Eyes: Reports no additional eye complaints ENT: Reports system reviewed and no additional complaints, except as documented Cardiovascular: Cardiovascular: Reports no additional cardiovascular complaints Respiratory: Respiratory: Reports no additional respiratory complaints Gastrointestinal: Gastrointestinal: Reports no additional gastrointestinal complaints Genitourinary: Genitourinary: Reports no additional female genitourinary complaints Musculoskeletal: Musculoskeletal: Reports no additional musculoskeletal complaints Integumentary/Breasts: Skin/Breast: Reports system reviewed and no additional complaints, except as docu Neurologic: Reports system reviewed and no additional complaints, except as documented Psychiatric: Psychiatric: Reports no additional psychiatric complaints Endocrine: Endocrine: Reports no additional endocrine complaints Hematologic/Lymphatic: Hematologic/Lymphatic: Reports no additional hematologic/lymphatic complaints Allergic/Immunologic: Allergic/Immunologic: Reports no additional allergic/immunologic complaints [facility] Past Medical History Medical History Acute left flank pain Diarrhea Diverticulosis recently treated for diverticulitis. Elevated blood pressure reading Encounter for surgical aftercare following surgery on the digestive system GERD (gastroesophageal reflux disease) Hematuria Left sided abdominal pain LLQ abdominal pain Major depression, recurrent Malaise and fatigue Nicotine dependence in remission Obese Overweight Pain in left leg Pain in right leg Renal mass Right low back pain Screening for malignant neoplasm of breast Screening for malignant neoplasm of cervix Shingles Sore throat Sore throat Strain of flexor muscle of left hip Strep throat Superficial sunburn Suprapubic pain URI (upper respiratory infection) UTI (urinary tract infection) Vitamin D deficiency Surgical History Surgical History H/O: section x2 History of partial hysterectomy (~2001) Hx laparoscopic cholecystectomy 09/26/21 Hx of lithotripsy Family History Family History Father Malignant neoplasm of prostate Mother Breast cancer Grandparent U
== END 2024-03-05 12:25 | disposition home or self-care (01) ==
LOC: CHSED 12:19
PROVIDERS: Emergency Provider Emergency Medicine; PCP Nurse Practitioner Family
DX: S80.812A Abrasion, left lower leg, initial encounter (principal); W55.03XA Scratched by cat, initial encounter; K21.9 Gastro-esophageal reflux disease without esophagitis; F33.9 Major depressive disorder, recurrent, unspecified; Z79.82 Long term (current) use of aspirin; Z79.891 Long term (current) use of opiate analgesic; Z87.891 Personal history of nicotine dependence
CPT/HCPCS: 99283

== ENCOUNTER 2024-05-07 15:40 | Outpatient (CLI) | payer OTHER, SELFPAY ==
[2024-05-07 15:58] LABS: Basophils Absolute Auto 0.06 K/mm3 (0.00-0.10); Basophils Percent Auto 0.7 % (0.0-1.0); Eosinophils Absolute Auto 0.14 K/mm3 (0.02-0.50); Eosinophils Percent Auto 1.7 % (1.0-6.0); Hematocrit 46.8 % (35.0-49.0); Hemoglobin 15.7 g/dL (12.0-15.0); Immature Granulocyte Absolute 0.04 K/mm3 (0.00-0.00); Immature Granulocyte Percent A 0.5 % (0.0-0.0); Lymphocytes Absolute Auto 2.03 K/mm3 (1.10-4.50); Lymphocytes Percent Auto 24.2 % (18.0-42.0); Mean Corpuscular HGB Conc 33.5 g/dL (32-36); Mean Corpuscular Hemoglobin 28.8 pg (27.0-31.0); Mean Corpuscular Volume 85.7 fL (78.0-102.0); Mean Platelet Volume 10.5 fl (9.2-11.8); Monocytes Absolute Auto 0.48 K/mm3 (0.10-0.90); Monocytes Percent Auto 5.7 % (2.0-11.0); Neutrophils Absolute Auto 5.63 K/mm3 (1.70-7.20); Neutrophils Percent Auto 67.2 % (50.0-70.0); Platelet Count Result 223 K/mm3 (150-420); Red Blood Count 5.46 M/mm3 (4.20-5.40); White Blood Count 8.4 K/mm3 (4.8-10.8)
[2024-05-07 16:07] LABS: Hemoglobin A1C 5.5 % (<5.7)
[2024-05-07 16:44] LABS: Alanine Aminotransferase 62 U/L (14-59); Albumin Level 4.2 g/dL (3.4-5.0); Alkaline Phosphatase 91 U/L (46-116); Anion Gap 12 mmol/L (4-12); Aspartate Amino Transferase 33 U/L (15-37); Bilirubin,Total 0.5 mg/dL (0.00-1.00); Blood Urea Nitrogen 20 mg/dL (7-18); Calcium 9.6 mg/dL (8.5-10.1); Carbon Dioxide 26 mmol/L (21-32); Chloride 103 mmol/L (98-108); Cholesterol 118 mg/dL (0-200); Estimated Glomerular Filt Rate > 60; Glucose 132 mg/dL (70-99); HDL Direct 39 mg/dL (40-60); LDL Cholesterol Calculated 29 mg/dL (<130); Osmolality Calculated 296 mOsm/kg (285-295); Potassium 4.4 mmol/L (3.5-5.1); Sodium 141 mmol/L (136-145); Total Protein 7.4 g/dL (6.4-8.2); Triglycerides 248 mg/dL (0-150)
[2024-05-07 16:46] LABS: Thyroid Stimulating Hormone Reflex 0.93 u/IU/mL (0.36-3.74)
== END 2024-05-07 15:41 | disposition home or self-care (01) ==
LOC: CHSLAB 15:43
PROVIDERS: PCP Nurse Practitioner Family; Visit Provider Nurse Practitioner Family
DX: Z00.00 Encounter for general adult medical examination without abnormal findings (principal)
CPT/HCPCS: 36415; 80053; 80061; 83036; 84443; 85025

== ENCOUNTER 2024-06-16 16:26 | Outpatient (NON) | payer OTHER, SELFPAY | END 2024-06-16 16:27 | disposition home or self-care (01) | LOC: CHSLAB 16:28 | PROVIDERS: Visit Provider Nurse Practitioner Family | DX: Z12.4 Encounter for screening for malignant neoplasm of cervix (principal); Z11.51 Encounter for screening for human papillomavirus (HPV); Z11.8 Encounter for screening for other infectious and parasitic diseases | CPT/HCPCS: 87491; 87591; 87624; 88175; G0145 ==

== ENCOUNTER 2024-12-27 13:55 | Emergency (ER) | payer OTHER, SELFPAY ==
--- NOTE | ~2024-12-27 | CT_ITS ---
EXAMINATION: CT abdomen pelvis w con DATE: 12/27/2024 15:13 INDICATION: Right flank pain. TECHNIQUE: Computed tomography (CT) of the abdomen and pelvis was performed with 100 mL Omnipaque 350 intravenous contrast. Automated exposure control and iterative reconstruction technique were employe d. The dose-length product was 642.74 mGy-cm. COMPARISON: CT abdomen and pelvis 07/10/2022, 08/12/21 FINDINGS: The visualized portions of the lung bases demonstrate mild atelectasis on the right. Calcif ied hilar and mediastinal lymph nodes are consistent with old granulomatous disease. No pleural effus ion. The heart size is normal. No pericardial effusion. The liver is normal. There are changes of cho lecystectomy. The spleen, pancreas, adrenal glands, are normal. There is cortical thinning of the kid neys. There are changes of cryoablation of the right kidney lower pole. There is diverticulosis of th e colon without evidence of diverticulitis. There are no dilated loops of bowel. The appendix is norm al. There are no pathologically enlarged lymph nodes. There is no free intraperitoneal fluid. There i s moderate thoracic spondylosis and severe lumbar spondylosis. IMPRESSION: 1. Cryoablation of right kidney. No residual or recurrent neoplasm. Reviewed, dictated and finalized at location A. ANALYST
[2024-12-27 13:56] VITALS: BP 177/100; PULSE 84; RESP 21; TEMP 36.9; O2SAT 97
[2024-12-27 14:00] VITALS: BP 155/86; PULSE 75; RESP 16; O2SAT 97
--- NOTE | 2024-12-27 14:09 | ED_ITS ---
HPI - Abdominal Pain General Chief Complaint: Abdominal Pain Stated Complaint: vomiting, abdominal pain Time Seen by Provider: 12/27/24 14:01 Source: patient Mode of arrival: ambulatory Limitations: no limitations History of Present Illness HPI narrative: Patient is a 59-year-old female with a history of right-sided renal cancer repaired in the past in yearly scans here with right-sided acute onset pain this morning. She has associated nausea. MD elicited complaint: flank pain ( Right) Pertinent past history: kidney stones Onset (ago): day(s) ( 1) Pain Consistency: constant Location: R flank Severity: moderate Pain scale (0-10): 6 Quality: cramping, aching and sharp Radiation: none Migration to: no migration Exacerbating factors: nothing Relieving factors: nothing Context: confirms history of similar episodes ( renal stones) Associated symptoms: nausea and vomiting Treatments prior to arrival: NSAIDs ( Tylenol) Related Data Allergies Allergy/AdvReac Type Severity Reaction Status Date / Time No Known Allergies Allergy Verified 12/27/24 14:07 Review of Systems 2 Review of Systems: All systems reviewed & are unremarkable except as noted in HPI and below Constitutional: Constitutional: Reports no additional constitutional complaints Eyes: Eyes: Reports no additional eye complaints ENT: Reports system reviewed and no additional complaints, except as documented Cardiovascular: Cardiovascular: Reports no additional cardiovascular complaints Respiratory: Respiratory: Reports no additional respiratory complaints Gastrointestinal: Gastrointestinal: Reports no additional gastrointestinal complaints Genitourinary: Genitourinary: Reports no additional female genitourinary complaints Musculoskeletal: Musculoskeletal: Reports no additional musculoskeletal complaints Integumentary/Breasts: Skin/Breast: Reports system reviewed and no additional complaints, except as docu Neurologic: Reports system reviewed and no additional complaints, except as documented Psychiatric: Psychiatric: Reports no additional psychiatric complaints Endocrine: Endocrine: Reports no additional endocrine complaints Hematologic/Lymphatic: Hematologic/Lymphatic: Reports no additional hematologic/lymphatic complaints Allergic/Immunologic: Allergic/Immunologic: Reports no additional allergic/immunologic complaints PMFSH Past Medical History Medical History Fatty liver Elevated LFTs Alternating constipation and diarrhea Diarrhea URI (upper respiratory infection) Encounter for surgical aftercare following surgery on the digestive system Hematuria Sore throat Diverticulosis recently treated for diverticulitis. Strep throat Strain of flexor muscle of left hip Renal mass Right low back pain Suprapubic pain LLQ abdominal pain Superficial sunburn Screening for malignant neoplasm of breast Screening for malignant neoplasm of cervix Shingles Acute left flank pain UTI (urinary tract infection) Overweight Pain in right leg Pain in left leg Sore throat Left sided abdominal pain Elevated blood pressure reading Major depression, recurrent GERD (gastroesophageal reflux disease) Nicotine dependence in remission Vitamin D deficiency Malaise and fatigue Obese Surgical History Surgical History Hx laparoscopic cholecystectomy 09/26/21 Hx of lithotripsy H/O: section x2 History of partial hysterectomy (~2001) Family History Family History Father Malignant neoplasm of prostate Mother Breast cancer Grandparent Uterine cancer Grandparent Stomach cancer Sibling Kidney malignancy Social History Social History Social History: , has 2 children the patient is a full code and desires to have her is a durable power regulatory attorney for healthcare. The patient is a former smoker. She does not drink use marijuana or illicit drugs. Code status full code Smoking packs per day: 1 Smoking cigarettes per day: 20.0 Years smoked: 5 Smoking pack-years: 5.00 Smoking status: Former smoker Tobacco type: cigarettes Smoking end date: 11/03/02 Alcohol intake: never Alcohol use details: social Substance use: never Substance use type: does not use Lack of Transportation: No Current Housing: I Have Housing Concerned About Future Housing: No Difficulty Paying Gas/Electric Bills: No Difficulty Paying for Meds: No Currently Unemployed: No Education: High School Diploma/GED Difficulty w/ Childcare or Family Care: No Living arrangements: with family Occupation/Education: occupation Additional occupation/education comments: 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 Gender identity (if verbalized by the patient): Female Spiritual care concerns: No Exam 2 Const: General: ill appearing ( acute distress and pain from the right flank) Nutritional Appearance: well nourished Orientation/consciousness: patient oriented x3 Limitations: no limitations HENMT: Head: normal to inspection Ears: external ears normal F javi/Nose/Sinus: Normal external nose present Eyes: Conjunctivae: conjunctivae normal Pupils: Equal, round and reactive pupils present EOM: EOMs intact bilaterally Neck: Neck: normal visual inspection Chest: Chest palpation & inspection: normal inspection of the chest Resp: Effort & Inspection: normal respiratory effort and not labored A uscultation: clear to auscultation bilaterally and no crackles Cardio: Rate: regular rate Rhythm: regular rhythm Heart sounds: no murmurs GI: Inspection: non-distended GI Palp: Yes Soft to palpation, No Tenderness to palpation present (GI), No Guarding due to palpation present (GI), No Rigid due to palpation, No Hernia present, No Palpable mass present and No Rebound tenderness present Auscultation: normal bowel sounds : General: Yes bladder normal to palpation Back/Spine/Pelvis: Back: No no CVA tenderness and CVA tenderness ( right) Skin: General skin exam: normal color Rashes: no rashes Wounds: no wounds Neuro: General: patient oriented x3 Cranial nerves: Yes Nystagmus not present Speech: normal speech Extrem: General: normal to inspection Psych: Mental Status: mental status grossly normal Affect: normal affect Attitude: cooperative Course Vital Signs Vital signs: Vital Signs Temperature 36.9 C 12/27/24 13:56 Pulse Rate 84 12/27/24 13:56 Respiratory Rate 21 H 12/27/24 13:56 Blood Pressure 177/100 H 12/27/24 13:56 Pulse Oximetry 97 12/27/24 13:56 Oxygen Delivery Room Air 12/27/24 13:56 Temperature 36.9 C 12/27/24 13:56 Pulse Rate 84 12/27/24 13:56 Respiratory Rate 21 H 12/27/24 13:56 Blood Pressure 177/100 H 12/27/24 13:56 Pulse Oximetry 97 12/27/24 13:56 Oxygen Delivery Room Air 12/27/24 13:56 MDM - Abdominal Pain MDM Narrative Medical decision making narrative: patient is a 59-year-old female with right flank pain for the past day acute onset. We will do a workup at this time for abdominal pain. Lab Data Attestation: I reviewed the patient's lab results. 12/27/24 14:32 12/27/24 14:32 Labs: Lab Results 12/27/24 12/27/24 Range/Units 14:02 14:32 WBC 7.7 (4.8-10.8) K/mm3 RBC 5.45 H (4.20-5.40) M/mm3 Hgb 15.1 H (12.0-15.0) g/dL Hct 47.2 (35.0-49.0) % MCV 86.6 (78.0-102.0) fL MCH 27.7 (27.0-31.0) pg MCHC 32.0 (32-36) g/dL RDW 12.2 (11.6-14.4) % Plt Count 220 (150-420) K/mm3 MPV 10.5 (9.2-11.8) fl Immature Gran % (Auto) 0.4 H (0.0-0.0) % Neut % (Auto) 62.0 (50.0-70.0) % Lymph % (Auto) 27.6 (18.0-42.0) % [place] % (Auto) 7.1 (2.0-11.0) % Eos % (Auto) 2.1 (1.0-6.0) % Baso % (Auto) 0.8 (0.0-1.0) % Lymph # (Auto) 2.14 (1.10-4.50) K/mm3 [place] # (Auto) 0.55 (0.10-0.90) K/mm3 Eos # (Auto) 0.16 (0.02-0.50) K/mm3 Baso # (Auto) 0.06 (0.00-0.10) K/mm3 Abs Immat Gran (auto) 0.03 H (0.00-0.00) K/mm3 Absolute Neuts (auto) 4.80 (1.70-7.20) K/mm3 Absolute Nucleated RBC 0.00 (0.00-0.00) K/mm3 Nucleated RBC % 0.0 (0-0.0) % PT 9.9 (9.50-12.1) Seconds INR 0.9 APTT 24.5 (23.9-30.70) Sec Sodium 143 (136-145) mmol/L Potassium 4.0 (3.5-5.1) mmol/L Chloride 105 (98-108) mmol/L Carbon Dioxide 27 (21-32) mmol/L Anion Gap 11 (4-12) mmol/L BUN 17 (7-18) mg/dL Creatinine 1.08 H (0.55-1.02) mg/dL Estim Creat Clear Calc 48 ml/min Estimated GFR 52 L (59 - ) Glucose 107 H (70-99) mg/dL Calculated Osmolality 297 H (285-295) mOsm/kg Lactic Acid 1.0 (0.4-2.0) mmol/L Calcium 9.7 (8.5-10.1) mg/dL Total Bilirubin 0.5 (0.00-1.00) mg/dL AST 26 (15-37) U/L ALT 44 (14-59) U/L Alkaline Phosphatase 96 (46-116) U/L Total Protein 7.5 (6.4-8.2) g/dL Albumin 4.2 (3.4-5.0) g/dL Lipase 57 (16-77) U/L Urine Color Light yellow (Yellow) Urine Appearance Sl cloudy A (Clear) Urine pH 5.5 (5.0-8.0) Ur Specific [place] >= 1.030 H (1.010-1.020) Urine Protein Negative (Negative) Urine Glucose (UA) Negative (Negative) Urine Ketones Trace H (Negative) Ur Blood (Man) Trace-intact H (Negative) Urine Nitrate Negative (Negative) Urine Bilirubin Negative (Negative) Urine Urobilinogen 0.2 (0.2-1.0) mg/dL Leukocyte Esterase Rfl 1+ H (Negative) DAVID/UL Urine RBC 0-2 (0-2) /hpf Urine WBC 10-15 H (0-3) /hpf Ur Squamous Epith Cells Few (Few) /hpf Urine Bacteria 2+ H (None) /hpf Influenza A (RT-PCR) Negative (Negative) Influenza B (RT-PCR) Negative (Negative) RSV (RT-PCR) Negative (Negative) SARS-CoV-2 RNA (RT-PCR) Negative (Negative) Imaging Data Attestation: I personally reviewed and interpreted this imaging study as follows: Radiologist's impression: ITS Impressions Abdomen/Pelvis CT 12/27/24 15:24 IMPRESSION: 1. Cryoablation of right kidney. No residual or recurrent neoplasm. Discharge Plan Discharge Clinical Impression: Cramp in muscle UTI (urinary tract infection) Qualifiers: Urinary tract infection type: acute cystitis Hematuria presence: with hematuria Qualified Code(s): N30.01 - Acute cystitis with hematuria Patient Disposition: Home, Self-Care Condition: Stable Instructions: Antibiotic Form, Urinary Tract Infection in Women (DC) Patient Language: St Helenian Prescriptions: New cephalexin 500 mg capsule 500 mg PO BID 7 Days Qty: 14 0RF hydrocodone-acetaminophen 5-325 mg tablet 1 tablet PO Q8H PRN (Reason: pain) Qty: 20 0RF No Action omeprazole 40 mg capsule,delayed release(DR/EC) 40 mg PO DAILY 30 Days Qty: 30 5RF sertraline 50 mg tablet 50 mg PO DAILY 90 Days Qty: 90 1RF simethicone [Gas Relief (simethicone)] 125 mg tablet,chewable 125 mg PO TID PRN (Reason: abdominal distention) Qty: 60 1RF meclizine 25 mg tablet 25 mg PO BID PRN (Reason: dizziness) Qty: 60 1RF Follow-up/Referrals: Marissa Bowling APRN [Primary Care Provider] - Time of Disposition: 15:36
[2024-12-27 14:12] LABS: Add Urine Microscopic? YES; Appearance Urine Sl Cloudy (Clear); Bilirubin Urine Negative (Negative); Blood Urine Trace-intact (Negative); Color Urine Light Yellow (Yellow); Glucose Urine UA Negative (Negative); Ketones Urine Trace (Negative); Leukocyte Esterase Ur 1+ LEU/UL (Negative); Nitrate Urine Negative (Negative); Protein Urine Negative (Negative); Specific Grav Ur >= 1.030 (1.010-1.020); Urobilinogen Urine 0.2 mg/dL (0.2-1.0); pH Urine 5.5 (5.0-8.0)
[2024-12-27 14:15] LABS: RBC Urine 0-2 /hpf (0-2); Squamous Epithelial Cell Urine Few /hpf (Few)
--- NOTE | 2024-12-27 14:15 | PC.NURSE ---
Covid culture sent to lab
[2024-12-27 14:16] LABS: Bacteria Urine 2+ /hpf
[2024-12-27] MEDS: ONDANSETRON INJ 4 MG/2 ML VIAL IV PUSH (14:30)
[2024-12-27] MEDS: KETOROLAC 30 MG/ML VIAL (*BKC) IV PUSH (14:30)
[2024-12-27 14:37] LABS: Basophils Absolute Auto 0.06 K/mm3 (0.00-0.10); Basophils Percent Auto 0.8 % (0.0-1.0); Eosinophils Absolute Auto 0.16 K/mm3 (0.02-0.50); Eosinophils Percent Auto 2.1 % (1.0-6.0); Hematocrit 47.2 % (35.0-49.0); Hemoglobin 15.1 g/dL (12.0-15.0); Immature Granulocyte Absolute 0.03 K/mm3 (0.00-0.00); Immature Granulocyte Percent A 0.4 % (0.0-0.0); Lymphocytes Absolute Auto 2.14 K/mm3 (1.10-4.50); Lymphocytes Percent Auto 27.6 % (18.0-42.0); Mean Corpuscular Hemoglobin 27.7 pg (27.0-31.0); Mean Corpuscular Volume 86.6 fL (78.0-102.0); Mean Platelet Volume 10.5 fl (9.2-11.8); Monocytes Absolute Auto 0.55 K/mm3 (0.10-0.90); Monocytes Percent Auto 7.1 % (2.0-11.0); Platelet Count Result 220 K/mm3 (150-420); Red Blood Count 5.45 M/mm3 (4.20-5.40); Red Cell Distribution Width 12.2 % (11.6-14.4); White Blood Count 7.7 K/mm3 (4.8-10.8)
[2024-12-27 14:49] LABS: SARS-CoV-2 RNA PCR Negative (Negative)
[2024-12-27 14:51] LABS: Alanine Aminotransferase 44 U/L (14-59); Albumin Level 4.2 g/dL (3.4-5.0); Alkaline Phosphatase 96 U/L (46-116); Anion Gap 11 mmol/L (4-12); Aspartate Amino Transferase 26 U/L (15-37); Bilirubin,Total 0.5 mg/dL (0.00-1.00); Blood Urea Nitrogen 17 mg/dL (7-18); Calcium 9.7 mg/dL (8.5-10.1); Carbon Dioxide 27 mmol/L (21-32); Chloride 105 mmol/L (98-108); Estimated CRCL calculation 48 ml/min; Estimated Glomerular Filt Rate 52; Glucose 107 mg/dL (70-99); INR 0.9; Osmolality Calculated 297 mOsm/kg (285-295); Partial Thromboplastin Time 24.5 Sec (23.9-30.70); Prothrombin Time 9.9 Seconds (9.50-12.1); Sodium 143 mmol/L (136-145); Total Protein 7.5 g/dL (6.4-8.2)
[2024-12-27 14:51] LABS: Influenza A QL RT-PCR Negative (Negative); Influenza B QL RT-PCR Negative (Negative); RSV RNA, RT-PCR Negative (Negative)
[2024-12-27 15:06] LABS: Lipase 57 U/L (16-77)
[2024-12-27 15:49] VITALS: BP 142/92; PULSE 66; RESP 18; TEMP 36.7; O2SAT 96
--- OUTSIDE RECORDS SUMMARY | 2024-12-27 16:06 | XMS_ITS | Patient Health Summary ---
Author Organization [facility] Address [address] [place] [address] Care Team Providers Care Shook Splicer Name Role Phone Wilver Grubbsmago Matamoros APRN-BALER Primary Care Provider Note from [facility],non-owned Affiliates and Associated Physician Practices is amultiple site organization consisting of ambulatory clinics and hospital sitesin [place], [place], [place] and [place]. This disclosure is being madepursuant to the Care Everywhere program and may not contain all information available regarding this patient. Last updated 18.[facility] Allergies No known active allergies Medications Be aware that medications may not be up to date on this document. Always verify current medications with the patient. No known medications Social History Tobacco Use Types Packs/Day Years Used Date Smoking Tobacco: Never Smokeless Tobacco: Never Alcohol Use Standard Drinks/Week Comments No 0 (1 standard drink = 0.6 oz pur e alcohol) Sex and Gender Information Value Date Recorded Sex Assigned at Not on file Gender Identity Not on file Sexual Orientation Not on file Last Filed Vital Signs Vital Sign Reading Time Taken Comments Blood Pressure 122/82 02/22/2019 1:48 PM CDT Pulse 83 02/22/2019 1:48 PM CDT Temperature 36.9 C (98.5 F) 02/22/2019 1:48 PM CDT Respiratory Rate 16 02/22/2019 1:48 PM CDT Oxygen Saturation 98% 02/22/2019 1:48 PM CDT Inhaled Oxygen Concentration - - Weight 79.6 kg (175 lb 8 oz) 02/22/2019 1:48 PM CDT Height 157.5 cm (5' 2 ) 02/22/2019 1:48 PM CDT Body Mass Index 32.1 02/22/2019 1:48 PM CDT Care Teams Shook Splicer Relationship Specialty Start Date End Date Maisha Grubbs APRN-FOREST [address] [place] [address] PCP - General 10/02/21
--- OUTSIDE RECORDS SUMMARY | 2024-12-27 16:06 | XMS_ITS | Clinical Summary ---
Author Organization [facility] Address [facility] [place] [address] Care Team Providers Care Community Health Outreach Worker Name Role Phone Marissa Bowling CASSIE Primary Care Provider [phone] Allergies No known active allergies Medications famotidine 20 MG tablet TAKE 1 TABLET BY MOUTH TWICE A DAY NEEDED FOR EPIGASTRIC PAIN 1 Active HYDROcodone-javi taminophen 5-325 MG tabletIndicatio ns:Acute Pain < 3 Day Supply Take 1-2 tablets by mouth every 6 (six) hours as needed. Indications: Acute Pain < 3 Day Supply 12 tablet 1 Active Encounters Date Type Department Care Team Description 09/27/2024 2:36 PM [facility] - 09/27/2024 6:01 PM [facility] Emergency [facility] Emergency Room [address] [place] [address] Porfirio Johnston MD Back Pain Discharge Disposition: Home or Self Care (Routine Discharge) 09/27/2024 - 09/27/2024 6:11 PM [facility] Emergency Health system Emergency Room [address] [place] [address] Crys Zamorano MD Discharge Disposition: Left Against Medical Advice 09/27/2024 Travel from Last 3 Months Social History Tobacco Use Types Packs/Day Years Used Date Smoking Tobacco: Former Smokeless Tobacco: Never Comments No Sex and Gender Information Value Date Recorded Sex Assigned at Not on file Legal Sex Female 7:48 PM CDT Gender Identity Not on file Sexual Orientation Not on file Last Filed Vital Signs Vital Sign Reading Time Taken Comments Blood Pressure 140/66 09/27/2024 5:50 PM TALENT ACQUISITION OPERATIONS MANAGER Pulse 70 09/27/2024 5:50 PM TALENT ACQUISITION OPERATIONS MANAGER Temperature 36.7 C (98 F) 09/27/2024 5:50 PM TALENT ACQUISITION OPERATIONS MANAGER Respiratory Rate 18 09/27/2024 5:50 PM TALENT ACQUISITION OPERATIONS MANAGER Oxygen Saturation 99% 09/27/2024 2:31 PM TALENT ACQUISITION OPERATIONS MANAGER Inhaled Oxygen Concentration - - Weight 77.1 kg (170 lb) 09/27/2024 2:31 PM TALENT ACQUISITION OPERATIONS MANAGER Height 154.9 cm (5' 1 ) 09/27/2024 2:31 PM TALENT ACQUISITION OPERATIONS MANAGER Body Mass Index 32.12 09/27/2024 2:31 PM TALENT ACQUISITION OPERATIONS MANAGER Plan of Treatment Health Maintenance Due Date Last Done Comments Cervical Cancer Screening Pa p Smear (Age 30 to 64) Every 3 Years 1964 Colorectal Cancer Screening Colonoscopy (10 Years) 1964 Annual Physical 1967 Hepatitis C 1982 DTaP, Tdap and Td Vaccines ( 1 - Tdap) 1983 Zoster Vaccines (1 of 2) 2014 COVID-19 Vaccine (1 - 2023-2 5 season) 2024 Influenza Adult (#1) 2024 Mammogram Screening 07/09/2026 07/09/2024 Cervical Cancer Screening Pa p with HPV Testing (Age 30 to 64) Every 5 Years 06/21/2029 06/21/2024 Cervical Cancer Screening with HPV 06/21/2029 RSV Immunization or 60+ Years (1 - 1-dose 75+ series) 2039 Meningococcal B Vaccine Aged Out No l onger eligible based on patient's age to complete this topic Meningococcal Vaccine Aged Out No jonnathan tere eligible based on patient's age to complete this topic Pneumococcal Vaccine: Pediat rics (0 to 5 Years) and At-Risk Patients (6 to 64 Years) Aged Out No longer eligi ble based on patient's age to complete this topic RSV Immunizations Under 20 Months Aged Out No longer eligible based on patient's age to complete this topic Procedures Procedure Name Priority Date/Time Associated Diagnosis Comments URINALYSIS, AUTO, COMPLETE STAT 09/27/2024 2:58 PM TALENT ACQUISITION OPERATIONS MANAGER MG SCREENING W ELVA JOSIAH DIGI Routine 07/09/2024 9:48 AM CDT Visit for screening mammogram HUMAN PAPILLOMAVIRUS, HIGH-RISK TYPES Routine 06/21/2024 8:00 AM CDT from Last 3 Months or Most Recently Relevant to Health Maintenance Results * (ABNORMAL) URINALYSIS, AUTO, COMPLETE (09/27/2024 2:58 PM TALENT ACQUISITION OPERATIONS MANAGER) COLOR (U) YELLOW 09/27/2024 3:15 PM TALENT ACQUISITION OPERATIONS MANAGER [facility] TRANSPARENCY HAZY 09/27/2024 3:15 PM [facility] SPECIFIC GRAVITY (U) >1.030(H) 1.000 - 1.030 09/27/2024 3:15 PM [facility] U PH 5.5 5.0 - 9.0 09/27/2024 3:15 PM [facility] LEUKOCYTES (U) NEGATIVE NEGATIVE 09/27/2024 3:15 PM [facility] NITRITES NEGATIVE NEGATIVE 09/27/2024 3:15 PM [facility] PROTEIN RANDOM (U) NEGATIVE NEGATIVE 09/27/2024 3:15 PM [facility] GLUCOSE (U) NEGATIVE NEGATIVE 09/27/2024 3:15 PM [facility] KETONES MG/DL (U) NEGATIVE NEGATIVE 09/27/2024 3:15 PM [facility] BILIRUBIN (U) NEGATIVE NEGATIVE 09/27/2024 3:15 PM [facility] BLOOD (U) 1+(A) NEGATIVE 09/27/2024 3:15 PM [facility] WBC/HPF NONE SEEN 0 - 5 /HPF 09/27/2024 3:15 PM [facility] RBC/HPF 0-5 0 - 5 /HPF 09/27/2024 3:15 PM TALENT ACQUISITION OPERATIONS MANAGER [facility] EPI/HPF FEW /HPF 09/27/2024 3:15 PM TALENT ACQUISITION OPERATIONS MANAGER [facility] URINE SPECIMEN OBTAINED BY CLEAN CATCH PROCEDURE / Unknown 09/27/2024 2:58 PM TALENT ACQUISITION OPERATIONS MANAGER Porfirio Johnston MD URINE ORDERABLES Final Result [facility] [address] [facility] [place] [address], [place] [phone] * MG SCREENING W ELVA JOSIAH DIGI (07/09/2024 9:48 AM CDT) Anatomical Region Laterality Modality Breast Bilateral Mammography 07/09/2024 10:4 1 AM CDT Impressions 07/12/2024 12:33 PM CDT IMPRESSION: No suspicious change since 07/27/2021. Recommendation: 1: Routine Screening Bilateral in 1 Year Assessment: ACR BI-RADS 2 - BENIGN FINDING(S) Ordered By: MARISSA BOWLING Interpreted By: Brian Alvarez MD, 07/09/2024 10:41 AM Narrative 07/12/2024 12:33 PM CDT [address] [address] Examination: Digital screening mammogram with CAD. Clinical history: Asymptomatic patient presents for routine screening. Comparison: 07/27/2021. Technique: Bilateral digital mammograms. The exam was interpreted with the use of a computer-aided detection (CAD) system. Additional 3-D tomosynthesis images were acquired. Tissue density: The breast tissue contains scattered fibroglandular densities. Findings: The breast tissue contains scattered fibroglandular densities. Benign-appearing calcification noted. No suspicious mass, microcalcification or area of architectural distortion can be identified. From a mammographic standpoint, routine followup in one year would seem adequate. Marissa Bowling ROTARY [facility] MAMMO Final Result * HUMAN PAPILLOMAVIRUS, HIGH-RISK TYPES (06/21/2024 8:00 AM CDT) SPEC DESCRIPTION CERVIX 06/23/20 3:28 PM CDT [facility] HPV DNA HIGH RISK NEGATIVE NEGATIVE 06/24/2024 12:22 AM CDT [facility] Comment:SEE CYTOLOGY REPORT 06/21/2024 8:00 AM CDT us Marissa MATTHEWS PATHOLOGY/CYTOLOGY ORDERABLES Final Result [facility] [address] [place] [address], from Last 3 Months or Most Recently Relevant to Health Maintenance Insurance [facility] [employer] Care Teams Community Health Outreach Worker Relationship Specialty Start Date End Date Marissa Bowling FNP [address] [place] [phone] PCP - General Nurse Practitioner Family 06/17/24
--- OUTSIDE RECORDS SUMMARY | 2024-12-27 16:06 | XMS_ITS | Referral Summary ---
Author Organization [facility] Address [address] [facility] [place] [address] Care Team Providers Care Proof Operator Name Role Phone Maria Alejandra Grubbsn Shiloh MANDARIN TEACHER-MACHINES TECHNICIAN Primary Care Provider Source Comments [facility],non-owned Affiliates and Associated Physician Practices is amultiple site organization consisting of ambulatory clinics and hospital sitesin [place], [place], [place] and [place]. This disclosure is being madepursuant to the Care Everywhere program and may not contain all information available regarding this patient. Last updated 18.[facility] Allergies No known active allergies Medications Be [...] Mass Index 32.1 02/22/2019 1:48 PM CDT Plan of Treatment Not on file Care Teams Proof Operator Relationship Specialty Start Date End Date Maisha Grubbs, MANDARIN TEACHER-MACHINES TECHNICIAN [address] [place] [address] PCP - General 10/02/21
--- OUTSIDE RECORDS SUMMARY | 2024-12-27 16:06 | XMS_ITS | CONTINUITY OF CARE DOCUMENT ---
Author Name anh kamara Address Unknown Organization [facility] Address [address] [place] [address] [address] [place] [address] Phone [phone] Care Team Providers Care Machinist Job Setter Name Role Phone MOE MARIA, ARETHA Unavailable [phone] MOE MARIA, ARETHA Unavailable INSURANCE PROVIDERS Payer name Policy type / Coverage type [place] [employer] party ID [facility] [id number]
--- OUTSIDE RECORDS SUMMARY | 2024-12-27 16:06 | XMS_ITS | Encounter Summary ---
Author Organization [facility] Address [facility] [place] [address] Care Team Providers Care Community Services Coordinator Name Role Phone Maisha Grubbs Primary Care Provider [phone] Marissa Bowling Primary Care Provider [phone] Encounter Details Date Type Department Care Team ([facility] st Contact Info) Description 04/10/2019 Abstract SFL CONVERSION [address] [place] [address] , Generic Conversion, Social History Tobacco Use Types Packs/Day Years Used Date Smoking Tobacco: Never Assessed Comments Unknown Sex and Gender Information Value Date Recorded Sex Assigned at Not on file Legal Sex Female 7:48 PM CDT Gender Identity Not on file Sexual Orientation Not on file documented as of this encounter Plan of Treatment Not on file documented as of this encounter Visit Diagnoses Not on filedocumented in this encounter Additional Health Concerns Infection Onset Date Last Indicated Resolved Time COVID-19 Rule Out 10/15/2021 10/15/2021 10/15/2021 8:04 PM FILTRATION PLANT MECHANIC documented as of this encounter Care Teams Community Services Coordinator Relationship Specialty Start Date End Date Maisha Grubbs FNP [address] [place] [id number] PCP - General NURSE PRACTITIONER 10/15/21 06/16/24 Marissa Bowling FNP [address] [place] [address] PCP - General Nurse Practitioner Family 06/17/24 documented as of this encounter
--- OUTSIDE RECORDS SUMMARY | 2024-12-27 16:06 | XMS_ITS | Clinical Summary ---
Author Organization [facility] Address [address] [place] [address] Care Team Providers Care Revenue Accounting Manager Name Role Phone Maria Alejandra Grubbsn Shiloh ELECTRICAL PANEL BUILDER-TAX COMPLIANCE MANAGER Primary Care Provider Source Comments [facility],non-owned Affiliates and Associated Physician Practices is amultiple site organization consisting of ambulatory clinics and hospital sitesin [place], [place], [place] and [place]. This disclosure is being madepursuant to the Care Everywhere program and may not contain all information available regarding this patient. Last updated 18.[facility] Allergies No known active allergies Medications Be [...] 02/22/2019 1:48 PM CDT Plan of Treatment Health Maintenance Due Date Last Done Comments COLOGUARD (AGES 45-75) - COL ON CA SCREENING 1964 COLON MONITORING 1964 COLONOSCOPY - COLON CA SCREENING 1964 CT COLONOGRAPHY - COLON CA SCREENING 1964 Colorectal Cancer Screening 1964 FIT - COLON CA SCREENING 1964 FLEX SIG - COLON CA SCREENING 1964 LIPID TESTING 1964 MAMMOGRAM 1964 PAP SMEAR 1964 HIV SCREENING 1979 HEPATITIS C SCREENING 03/29/1982 DTAP/TDAP/TD VACCINES (1 - Tdap) 1983 PNEUMOCOCCAL VACCINE 50+ (1 of 1 - PCV) 2014 ZOSTER VACCINE (1 of 2) 2014 SCREENING FOR DIABETES 02/22/2019 COVID-19 VACCINE (1 - 2023-2 5 season) 2024 INFLUENZA VACCINE (#1) 2024 DEPRESSION SCREENING 11/03/2024 Respiratory Syncytial Virus (RSV) Vaccine Pt: or over 60 yrs (1 - 1-dose 75+ series) 2039 HEPATITIS B VACCINE Aged Out No longe r eligible based on patient's age to complete this topic HIB VACCINE Aged Out No longer eligi ble based on patient's age to complete this topic HPV VACCINE Aged Out No longer eligi ble based on patient's age to complete this topic MENINGOCOCCAL (Group B) VACCINE Aged Out No longer eligible based on patient's age to complete this topic MENINGOCOCCAL VACCINE Aged Out No jonnathan tere eligible based on patient's age to complete this topic PNEUMOCOCCAL VACCINE Aged Out No long er eligible based on patient's age to complete this topic Care Teams Revenue Accounting Manager Relationship Specialty Start Date End Date Maisha Grubbs, ELECTRICAL PANEL BUILDER-TAX COMPLIANCE MANAGER [address] [place] [phone] PCP - General 10/02/21
--- OUTSIDE RECORDS SUMMARY | 2024-12-27 16:51 | XMS_ITS | Clinical Summary ---
Author Organization [facility] Address [facility] [place] [address] Care Team Providers Care Packer Name Role Phone Marissa Bowling CASSIE Primary Care Provider [phone] Allergies No known active allergies Medications famotidine [...] Department Care Team Description 09/27/2024 2:36 PM [facility] - 09/27/2024 6:01 PM [facility] Emergency [facility] Emergency Room [address] [place] [address] Porfirio Johnston MD Back Pain Discharge Disposition: Home or Self Care (Routine Discharge) 09/27/2024 - 09/27/2024 6:11 PM [facility] Emergency [facility] Emergency Room [address] [place] [address] Crys Zamorano MD Discharge Disposition: Left Against [...] Comments Blood Pressure 140/66 09/27/2024 5:50 PM WIRE BORDER ASSEMBLER Pulse 70 09/27/2024 5:50 PM WIRE BORDER ASSEMBLER Temperature 36.7 C (98 F) 09/27/2024 5:50 PM WIRE BORDER ASSEMBLER Respiratory Rate 18 09/27/2024 5:50 PM WIRE BORDER ASSEMBLER Oxygen Saturation 99% 09/27/2024 2:31 PM WIRE BORDER ASSEMBLER Inhaled Oxygen Concentration - - Weight 77.1 kg (170 lb) 09/27/2024 2:31 PM WIRE BORDER ASSEMBLER Height 154.9 cm (5' 1 ) 09/27/2024 2:31 PM WIRE BORDER ASSEMBLER Body Mass Index 32.12 09/27/2024 2:31 PM WIRE BORDER ASSEMBLER Plan of Treatment Health Maintenance Due Date [...] URINALYSIS, AUTO, COMPLETE STAT 09/27/2024 2:58 PM WIRE BORDER ASSEMBLER MG SCREENING W ELVA JOSIAH DIGI Routine 07/09/2024 9:48 AM CDT Visit for screening mammogram HUMAN PAPILLOMAVIRUS, HIGH-RISK TYPES Routine 06/21/2024 8:00 AM CDT from Last 3 Months or Most Recently Relevant to Health Maintenance Results * (ABNORMAL) URINALYSIS, AUTO, COMPLETE (09/27/2024 2:58 PM WIRE BORDER ASSEMBLER) COLOR (U) YELLOW 09/27/2024 3:15 PM WIRE BORDER ASSEMBLER [facility] TRANSPARENCY HAZY 09/27/2024 3:15 PM [facility] SPECIFIC GRAVITY (U) >1.030(H) 1.000 - 1.030 09/27/2024 3:15 PM [facility] U PH 5.5 5.0 - 9.0 09/27/2024 3:15 PM [facility] LEUKOCYTES (U) NEGATIVE NEGATIVE 09/27/2024 3:15 PM [facility] NITRITES NEGATIVE NEGATIVE 09/27/2024 3:15 PM [facility] PROTEIN RANDOM (U) NEGATIVE NEGATIVE 09/27/2024 3:15 PM [facility] GLUCOSE (U) NEGATIVE NEGATIVE 09/27/2024 3:15 PM [facility] KETONES MG/DL (U) NEGATIVE NEGATIVE 09/27/2024 3:15 PM [facility] BILIRUBIN (U) NEGATIVE NEGATIVE 09/27/2024 3:15 PM [facility] BLOOD (U) 1+(A) NEGATIVE 09/27/2024 3:15 PM [facility] WBC/HPF NONE SEEN 0 - 5 /HPF 09/27/2024 3:15 PM [facility] RBC/HPF 0-5 0 - 5 /HPF 09/27/2024 3:15 PM WIRE BORDER ASSEMBLER [facility] EPI/HPF FEW /HPF 09/27/2024 3:15 PM WIRE BORDER ASSEMBLER [facility] URINE SPECIMEN OBTAINED BY CLEAN CATCH PROCEDURE / Unknown 09/27/2024 2:58 PM WIRE BORDER ASSEMBLER Porfirio Johnston MD URINE ORDERABLES Final Result [facility] [address] [facility] [place] [address], [place] [phone] * MG SCREENING W ELVA JOSIAH DIGI [...] 10:41 AM Narrative 07/12/2024 12:33 PM CDT [address] [address] Examination: Digital screening mammogram with CAD. Clinical [...] one year would seem adequate. Marissa Bowling CLIENT SERVICES REPRESENTATIVE MAMMO Final Result * HUMAN PAPILLOMAVIRUS, HIGH-RISK TYPES (06/21/2024 8:00 AM CDT) SPEC DESCRIPTION CERVIX 06/23/20 3:28 PM CDT [facility] HPV DNA HIGH RISK NEGATIVE NEGATIVE 06/24/2024 12:22 AM CDT [facility] Comment:SEE CYTOLOGY REPORT 06/21/2024 8:00 AM CDT us Marissa MATTHEWS PATHOLOGY/CYTOLOGY ORDERABLES Final Result [facility] [address] [place] [place] [address], from Last 3 Months or Most Recently Relevant to Health Maintenance Insurance [facility] Care Teams Packer Relationship Specialty Start Date End Date Marissa Bowling FNP [address] [place] [phone] PCP - General Nurse Practitioner Family 06/17/24
--- OUTSIDE RECORDS SUMMARY | 2024-12-27 16:51 | XMS_ITS | Patient Health Summary ---
Author Organization [facility] Address [address] [facility] [place] [address] Care Team Providers Care Nurse Midwife Name Role Phone Wilver Grubbsmago Matamoros APRN-BRAKE ENGINEER Primary Care Provider Note from [facility],non-owned Affiliates and Associated Physician Practices is amultiple site organization consisting of ambulatory clinics and hospital sitesin [place], [place] and [place]. This disclosure is being madepursuant to the Care Everywhere program and may not contain all information available regarding this patient. Last updated 18.[facility] Allergies No known active allergies Medications Be [...] 32.1 02/22/2019 1:48 PM CDT Care Teams Nurse Midwife Relationship Specialty Start Date End Date Maisha Grubbs APRN-FOREST [address] [place] [address] PCP - General 10/02/21
--- OUTSIDE RECORDS SUMMARY | 2024-12-27 16:51 | XMS_ITS | Encounter Summary ---
Author Organization [facility] Address [facility] access hospital[address] [place] [address] Care Team Providers Care Guest Service Representative Name Role Phone Maisha Grubbs Primary Care Provider [phone] Marissa Bowling Primary Care Provider [phone] Encounter Details Date Type Department Care Team ([facility] st Contact Info) Description 04/10/2019 Abstract SFL CONVERSION [address] [place] [address] , Generic Conversion, Social History Tobacco Use [...] Rule Out 10/15/2021 10/15/2021 10/15/2021 8:04 PM SUPERVISOR NURSE documented as of this encounter Care Teams Guest Service Representative Relationship Specialty Start Date End Date Maisha Grubbs FNP [address] [place] [address] PCP - General NURSE PRACTITIONER 10/15/21 06/16/24 Marissa Bowling FNP [address] [place] [address] PCP - General Nurse Practitioner Family 06/17/24 documented as of this encounter
--- OUTSIDE RECORDS SUMMARY | 2024-12-27 16:51 | XMS_ITS | Referral Summary ---
Author Organization [facility] Address [address] [facility] [place] [address] Care Team Providers Care Education Administrator Name Role Phone Maria Alejandra Grubbsn Shiloh THEATER COMPANY PRODUCER-QUARANTINE OFFICER Primary Care Provider Source Comments [facility] [employer] [facility],non-owned Affiliates and Associated Physician Practices is amultiple site organization consisting of ambulatory clinics and hospital sitesin [place], [place], [place] and [place]. This disclosure is being madepursuant to the Care Everywhere program and may not contain all information available regarding this patient. Last updated 18.[facility] [employer] [facility] Allergies No known active allergies Medications Be [...] of Treatment Not on file Care Teams Education Administrator Relationship Specialty Start Date End Date Maisha Grubbs, THEATER COMPANY PRODUCER-QUARANTINE OFFICER [address] [place] [address] PCP - General 10/02/21
--- OUTSIDE RECORDS SUMMARY | 2024-12-27 16:51 | XMS_ITS | Clinical Summary ---
Author Organization [facility] Address [address] [facility] [place] [address] Care Team Providers Care Data Systems Manager Name Role Phone Maria Alejandra Grubbsn Shiloh SIGNAL MAINTAINER HELPER-BASKET MACHINE OPERATOR Primary Care Provider Source Comments [facility],non-owned Affiliates and Associated Physician Practices is amultiple site organization consisting of ambulatory clinics and hospital sitesin [place], [place], [place] and [place]. This disclosure is being madepursuant to the Care Everywhere program and may not contain all information available regarding this patient. Last updated 18.[facility] Allergies No known active allergies Medications Be [...] age to complete this topic Care Teams Data Systems Manager Relationship Specialty Start Date End Date Maisha Grubbs, SIGNAL MAINTAINER HELPER-BASKET MACHINE OPERATOR [address] [place] [phone] PCP - General 10/02/21
--- OUTSIDE RECORDS SUMMARY | 2024-12-27 16:51 | XMS_ITS | CONTINUITY OF CARE DOCUMENT ---
Author Name anh kamara Address Unknown Organization [facility] Address [address] [place] [address] [address] [place] [address] Phone [phone] Care Team Providers Care Automotive Internet Sales Manager Name Role Phone MOE MARIA, ARETHA Unavailable [phone] MOE MARIA, ARETHA Unavailable INSURANCE PROVIDERS Payer name Policy type / Coverage type [place] red republican ID [facility] [id number]
--- NOTE | 2024-12-29 13:28 | PC.NURSE ---
FINAL URINE CULTURE RESULTS: LESS THAN 10,000 CFU/ML OF SINGLE GRAM POSITIVE ORGANISM ISOLATED. NO CHANGE IN TX PER DR HERNANDEZ
== END 2024-12-27 15:49 | disposition home or self-care (01) ==
PROVIDERS: Emergency Provider Emergency Medicine; PCP Nurse Practitioner Family
DX: N30.01 Acute cystitis with hematuria (principal); R25.2 Cramp and spasm; Z85.528 Personal history of other malignant neoplasm of kidney; Z87.891 Personal history of nicotine dependence; Z20.822 Contact with and (suspected) exposure to COVID-19
CPT/HCPCS: 36415; 74177; 80053; 81001; 83605; 83690; 85025; 85610; 85730; 87086; 87637; 96374; 96375; 99284; J1885; J2405; Q9967

== ENCOUNTER 2025-01-12 10:06 | Outpatient (CLI) | payer OTHER, SELFPAY ==
[2025-01-12 10:17] LABS: Add Urine Microscopic? YES; Appearance Urine Clear (Clear); Bilirubin Urine Negative (Negative); Blood Urine Negative (Negative); Color Urine Yellow (Yellow); Glucose Urine UA Negative (Negative); Ketones Urine Negative (Negative); Leukocyte Esterase Ur Trace LEU/UL (Negative); Nitrate Urine Negative (Negative); Protein Urine Negative (Negative); Specific Grav Ur 1.025 (1.010-1.020); Urobilinogen Urine 0.2 mg/dL (0.2-1.0); pH Urine 5.5 (5.0-8.0)
[2025-01-12 10:25] LABS: Bacteria Urine Rare /hpf; RBC Urine None seen /hpf (0-2); Squamous Epithelial Cell Urine Rare /hpf (Few); WBC Urine None seen /hpf (0-3)
--- OUTSIDE RECORDS SUMMARY | 2025-01-12 11:16 | XMS_ITS | Referral Summary ---
Author Organization [facility] Address [address] [facility] [place] [address] Care Team Providers Care Creative Arts Therapist Name Role Phone Wilver Grubbsmago Matamoros APRN-ELECTRICAL APPRENTICE Primary Care Provider Source Comments [facility],non-owned Affiliates and Associated Physician Practices is amultiple site organization consisting of ambulatory clinics and hospital sitesin [place], [place], [place] and [place]. This disclosure is being madepursuant to the Care Everywhere program and may not contain all information available regarding this patient. Last updated 18.[facility] Allergies No known active allergies Medications Be [...] of Treatment Not on file Care Teams Creative Arts Therapist Relationship Specialty Start Date End Date Maisha Grubbs, CST-ELECTRICAL APPRENTICE [address] [place] [address] PCP - General 10/02/21
--- OUTSIDE RECORDS SUMMARY | 2025-01-12 11:16 | XMS_ITS | Clinical Summary ---
Author Organization [facility] Address [address] [place] [address] Care Team Providers Care Rn Lpn Lvn Name Role Phone Dash Scottbubba CASSIE Primary Care Provider [phone] Allergies No known active allergies Medications famotidine 20 MG tablet TAKE 1 TABLET BY MOUTH TWICE A DAY NEEDED FOR EPIGASTRIC PAIN 1 Active HYDROcodone-javi taminophen 5-325 MG tabletIndicatio ns:Acute Pain < 3 Day Supply Take 1-2 tablets by mouth every 6 (six) hours as needed. Indications: Acute Pain < 3 Day Supply 12 tablet 1 Active Social History Tobacco Use Types Packs/Day Years Used Date Smoking Tobacco: Former Smokeless Tobacco: Never Comments No Sex and Gender Information Value Date Recorded Sex Assigned at Not on file Legal Sex Female 7:48 PM CDT Gender Identity Not on file Sexual Orientation Not on file Last Filed Vital Signs Vital Sign Reading Time Taken Comments Blood Pressure 140/66 09/27/2024 5:50 PM HYPERBARIC TECHNICIAN Pulse 70 09/27/2024 5:50 PM HYPERBARIC TECHNICIAN Temperature 36.7 C (98 F) 09/27/2024 5:50 PM HYPERBARIC TECHNICIAN Respiratory Rate 18 09/27/2024 5:50 PM HYPERBARIC TECHNICIAN Oxygen Saturation 99% 09/27/2024 2:31 PM HYPERBARIC TECHNICIAN Inhaled Oxygen Concentration - - Weight 77.1 kg (170 lb) 09/27/2024 2:31 PM HYPERBARIC TECHNICIAN Height 154.9 cm (5' 1 ) 09/27/2024 2:31 PM HYPERBARIC TECHNICIAN Body Mass Index 32.12 09/27/2024 2:31 PM HYPERBARIC TECHNICIAN Plan of Treatment Health Maintenance Due Date [...] Procedure Name Priority Date/Time Associated Diagnosis Comments MG SCREENING W ELVA JOSIAH DIGI Routine 07/09/2024 9:48 AM CDT Visit for screening mammogram HUMAN PAPILLOMAVIRUS, HIGH-RISK TYPES Routine 06/21/2024 8:00 AM CDT from Last 3 Months or Most Recently Relevant to Health Maintenance Results * MG SCREENING W ELVA JOSIAH DIGI [...] 10:41 AM Narrative 07/12/2024 12:33 PM CDT [address] [place] [address] Examination: Digital screening mammogram with CAD. Clinical [...] one year would seem adequate. Marissa Bowling [facility] MAMMO Final Result * HUMAN PAPILLOMAVIRUS, HIGH-RISK TYPES (06/21/2024 8:00 AM CDT) SPEC DESCRIPTION CERVIX 06/23/20 3:28 PM CDT [facility] HPV DNA HIGH RISK NEGATIVE NEGATIVE 06/24/2024 12:22 AM CDT [facility] Comment:SEE CYTOLOGY REPORT 06/21/2024 8:00 AM CDT Marissa Bowling [facility] PATHOLOGY/CYTOLOGY ORDERABLES Final Result [facility] [address] [place] [address], from Last 3 Months or Most Recently Relevant to Health Maintenance Insurance [facility] Care Teams Rn Lpn Lvn Relationship Specialty Start Date End Date Marissa Bowling FNP [address] [place] [phone] PCP - General Nurse Practitioner Family 06/17/24
--- OUTSIDE RECORDS SUMMARY | 2025-01-12 11:16 | XMS_ITS | Patient Health Summary ---
Author Organization [facility] Address [address] [facility] [place] [address] Care Team Providers Care Chainstitch Pants Outseamer Name Role Phone Wilver Grubbsmago Matamoros APRN-MEDICAL SALES SPECIALIST Primary Care Provider Note from [facility],non-owned Affiliates and Associated Physician Practices is amultiple site organization consisting of ambulatory clinics and hospital sitesin [place], [place], [place] and [place]. This disclosure is being madepursuant to the Care Everywhere program and may not contain all information available regarding this patient. Last updated 18.[facility] [employer] Allergies No known active allergies Medications Be [...] 32.1 02/22/2019 1:48 PM CDT Care Teams Chainstitch Pants Outseamer Relationship Specialty Start Date End Date Maisha Grubbs APRN-FOREST [address] [place] [address] PCP - General 10/02/21
--- OUTSIDE RECORDS SUMMARY | 2025-01-12 11:16 | XMS_ITS | Clinical Summary ---
Author Organization [facility] Address [address] [facility] [place] [address] Care Team Providers Care Kids Club Attendant Name Role Phone Maria Alejandra Grubbsn Shiloh TOWER OBSERVER-GEOSPATIAL SPECIALIST Primary Care Provider Source Comments [facility],non-owned Affiliates and Associated Physician Practices is amultiple site organization consisting of ambulatory clinics and hospital sitesin [place], [place] and [place]. This disclosure is being madepursuant to the Care Everywhere program and may not contain all information available regarding this patient. Last updated 18.[facility] Allergies No known active allergies Medications Be [...] to complete this topic MENINGOCOCCAL (Group B) VACC INE SHARED DECISION-MAKING Aged Out No longer eligibl e based on patient's age to complete this topic MENINGOCOCCAL GROUPS A/C/Y/W VACCINE Aged Out No longer eligible b ased on patient's age to complete this topic PNEUMOCOCCAL VACCINE Aged Out No long er eligible based on patient's age to complete this topic Care Teams Kids Club Attendant Relationship Specialty Start Date End Date Maisha Grubbs, TOWER OBSERVER-GEOSPATIAL SPECIALIST [address] [place] [address] PCP - General 10/02/21
--- OUTSIDE RECORDS SUMMARY | 2025-01-12 11:16 | XMS_ITS | CONTINUITY OF CARE DOCUMENT ---
Author Name anh kamraa Address Unknown Organization [facility] Address [address] [place] [address] [address] [place] [address] Phone [phone] Care Team Providers Care Bilingual School Psychologist Name Role Phone MOE MARIA, ARETHA Unavailable MOE MARIA, ARETHA Unavailable INSURANCE PROVIDERS Payer name Policy type / Coverage type [place] red green party ID [facility] [id number]
--- OUTSIDE RECORDS SUMMARY | 2025-01-12 11:16 | XMS_ITS | Encounter Summary ---
Author Organization [facility] Address [facility] [place] [address] Care Team Providers Care Gum Cook Name Role Phone Maisha Grubbs Primary Care Provider [phone] Marissa Bowling Primary Care Provider [phone] Encounter Details Date Type Department Care Team ([facility] st Contact Info) Description 04/10/2019 Abstract SFL CONVERSION [address] [place] [address] , Generic Conversion, Social History Tobacco Use [...] Rule Out 10/15/2021 10/15/2021 10/15/2021 8:04 PM MANAGER DISH documented as of this encounter Care Teams Gum Cook Relationship Specialty Start Date End Date Maisha Grubbs FNP [address] [place] [address] PCP - General NURSE PRACTITIONER 10/15/21 06/16/24 Marissa Bowling FNP [address] [place] [address] PCP - General Nurse Practitioner Family 06/17/24 documented as of this encounter
[2025-01-12 12:11] LABS: Albumin Level 4.4 g/dL (3.4-5.0); Anion Gap 11 mmol/L (4-12); Blood Urea Nitrogen 20 mg/dL (7-18); Calcium 10.2 mg/dL (8.5-10.1); Carbon Dioxide 27 mmol/L (21-32); Chloride 104 mmol/L (98-108); Estimated Glomerular Filt Rate 51; Glucose 102 mg/dL (70-99); Osmolality Calculated 296 mOsm/kg (285-295); Potassium 4.3 mmol/L (3.5-5.1); Sodium 142 mmol/L (136-145)
== END 2025-01-12 10:07 | disposition home or self-care (01) ==
LOC: CHSLAB 10:08
PROVIDERS: PCP Nurse Practitioner Family; Visit Provider Nurse Practitioner Family
DX: R79.89 Other specified abnormal findings of blood chemistry (principal); M54.50 Low back pain, unspecified
CPT/HCPCS: 36415; 80069; 81001

== ENCOUNTER 2025-01-22 06:48 | Outpatient (CLI) | payer OTHER, SELFPAY ==
--- NOTE | ~2025-01-22 | MR_ITS ---
EXAMINATION: MR brain/brain stem wo con DATE: 01/22/2025 07:38 INDICATION: Dizziness and giddiness TECHNIQUE: Magnetic resonance imaging (MRI) of the brain and brainstem was performed without intraven ous contrast. Sequences included sagittal and axial T1-weighted SE, axial diffusion-weighted FS SE, a xial T2*-weighted GRE, axial T2-weighted FLAIR Propeller, and axial T2-weighted Propeller. Apparent d iffusion coefficient (ADC) maps were created. COMPARISON: None. FINDINGS: Midline sagittal images demonstrate a normal corpus callosum and craniovertebral junction. No diffusion weighted restriction is seen. Structures of the posterior fossa including 7/8th cranial nerve complexes are normal. There is mild mucosal thickening of the right maxillary sinus is. Orbits are intact and symmetric. No gradient susceptibility effect. Brain parenchymal volume is normal for a ge. There is an empty sella turcica. Study somewhat limited due to artifact. IMPRESSION: 1. No acute intracranial abnormality. 2: Mild right maxillary sinus disease. 3: Empty sella turcica. Reviewed, dictated and finalized at location B.
--- OUTSIDE RECORDS SUMMARY | 2025-01-22 06:52 | XMS_ITS | Clinical Summary ---
Author Organization [facility] Address [address] [facility] [place] [address] Care Team Providers Care Court Liaison Name Role Phone Maria Alejandra Grubbsn Shiloh ORDER CHECKER PACKER PROCESSER-MARKET DEVELOPMENT MANAGER Primary Care Provider Source Comments [facility],non-owned Affiliates and Associated Physician Practices is amultiple site organization consisting of ambulatory clinics and hospital sitesin [place], [place], [place] and [place]. This disclosure is being madepursuant to the Care Everywhere program and may not contain all information available regarding this patient. Last updated 18.[facility] Allergies No known active allergies Medications Be [...] age to complete this topic Care Teams Court Liaison Relationship Specialty Start Date End Date Maisha Grubbs, ORDER CHECKER PACKER PROCESSER-MARKET DEVELOPMENT MANAGER [address] [place] [address] PCP - General 10/02/21
--- OUTSIDE RECORDS SUMMARY | 2025-01-22 06:52 | XMS_ITS | Encounter Summary ---
Author Organization [facility] Address [facility] [place] [address] Care Team Providers Care Senior Trainer Name Role Phone Maisha Grubbs Primary Care Provider [phone] Marissa Bowling Primary Care Provider [phone] Encounter Details Date Type Department Care Team ([facility] st Contact Info) Description 04/10/2019 Abstract SFL CONVERSION [address] [place] [address] , Generic Conversion, Social History Tobacco Use [...] Rule Out 10/15/2021 10/15/2021 10/15/2021 8:04 PM PARALEGAL SUPERVISOR documented as of this encounter Care Teams Senior Trainer Relationship Specialty Start Date End Date Maisha Grubbs FNP [address] [place] [address] PCP - General NURSE PRACTITIONER 10/15/21 06/16/24 Marissa Bowling FNP [address] [place] [address] PCP - General Nurse Practitioner Family 06/17/24 documented as of this encounter
--- OUTSIDE RECORDS SUMMARY | 2025-01-22 06:52 | XMS_ITS | CONTINUITY OF CARE DOCUMENT ---
Author Name anh kamara Address Unknown Organization [facility] Address [address] [place] [address] [address] [place] [address] Phone [phone] Care Team Providers Care Contract Recruiter Name Role Phone MOE MARIA, ARETHA Unavailable MOE MARIA, ARETHA Unavailable [phone] INSURANCE PROVIDERS Payer name Policy type / Coverage type [place] red republican ID [facility] [id number]
--- OUTSIDE RECORDS SUMMARY | 2025-01-22 06:52 | XMS_ITS | Clinical Summary ---
Author Organization [facility] Address [address] [place] [address] Care Team Providers Care Supervisor Pressing Department Name Role Phone Dash Scottbubba CASSIE Primary Care Provider Allergies No known active allergies Medications famotidine [...] Comments Blood Pressure 140/66 09/27/2024 5:50 PM GEAR SHAVER SET UP OPERATOR Pulse 70 09/27/2024 5:50 PM GEAR SHAVER SET UP OPERATOR Temperature 36.7 C (98 F) 09/27/2024 5:50 PM GEAR SHAVER SET UP OPERATOR Respiratory Rate 18 09/27/2024 5:50 PM GEAR SHAVER SET UP OPERATOR Oxygen Saturation 99% 09/27/2024 2:31 PM GEAR SHAVER SET UP OPERATOR Inhaled Oxygen Concentration - - Weight 77.1 kg (170 lb) 09/27/2024 2:31 PM GEAR SHAVER SET UP OPERATOR Height 154.9 cm (5' 1 ) 09/27/2024 2:31 PM GEAR SHAVER SET UP OPERATOR Body Mass Index 32.12 09/27/2024 2:31 PM GEAR SHAVER SET UP OPERATOR Plan of Treatment Health Maintenance Due Date [...] 10:41 AM Narrative 07/12/2024 12:33 PM [address]T [address] [place] [address] Examination: Digital screening mammogram with CAD. Clinical [...] one year would seem adequate. Marissa Bowling [facility] MAMMO Final Result * HUMAN PAPILLOMAVIRUS, HIGH-RISK TYPES (06/21/2024 8:00 AM CDT) SPEC DESCRIPTION CERVIX 06/23/20 3:28 PM CDT [facility] HPV DNA HIGH RISK NEGATIVE NEGATIVE 06/24/2024 12:22 AM CDT [facility] Comment:SEE CYTOLOGY REPORT 06/21/2024 8:00 AM CDT Marissa Bowling [facility] PATHOLOGY/CYTOLOGY ORDERABLES Final Result [facility] [address] [place] [address], from Last 3 Months or Most Recently Relevant to Health Maintenance Insurance [facility] Care Teams Supervisor Pressing Department Relationship Specialty Start Date End Date Marissa Bowling FNP [address] [place] [phone] PCP - General Nurse Practitioner Family 06/17/24
== END 2025-01-22 06:49 | disposition home or self-care (01) ==
LOC: CHSIMG 06:50
PROVIDERS: PCP Nurse Practitioner Family; Visit Provider Nurse Practitioner Family
DX: R42 Dizziness and giddiness (principal); J32.0 Chronic maxillary sinusitis
CPT/HCPCS: 70551

== ENCOUNTER 2025-01-28 13:28 | Outpatient (CLI) | payer OTHER, SELFPAY ==
--- NOTE | ~2025-01-28 | CT_ITS ---
EXAMINATION: CT lumbar spine wo con DATE: 01/28/2025 14:32 INDICATION: Low back pain. TECHNIQUE: Computed tomography (CT) of the lumbar spine was performed without intravenous contrast. A utomated exposure control and iterative reconstruction technique were employed. The dose-length produ ct was 976.15 mGy-cm. COMPARISON: Lumbar spine radiographs 11/27/2023 FINDINGS: There is 4 degrees dextrocurvature of thoracolumbar spine. Vertebral body heights are dylon l. There is mildly decreased disc height at L1-L2, moderately decreased disc height at L4-L5, and mil dly decreased disc height at L5-S1. The following disc levels are specifically discussed: L1-L2: The disc does not extend beyond the endplate margin. There is moderate bilateral facet joint o steoarthritis. There is no neural foraminal stenosis. There is no central canal stenosis. L2-L3: The disc is bulging. There is moderate bilateral facet joint osteoarthritis. There is mild rig ht neural foraminal stenosis. There is mild central canal stenosis. L3-L4: The disc is bulging. There is mild bilateral facet joint osteoarthritis. There is mild bilater al neural foraminal stenosis. There is mild central canal stenosis. L4-L5: The disc is bulging. There is severe right and moderate left facet joint osteoarthritis. There is mild bilateral neural foraminal stenosis. There is mild central canal stenosis. L5-S1: The disc is bulging. There is severe bilateral facet joint osteoarthritis. There is mild bilat eral neural foraminal stenosis. There is mild central canal stenosis. IMPRESSION: 1. Moderate lumbar spondylosis. Reviewed, dictated and finalized at location A.
--- OUTSIDE RECORDS SUMMARY | 2025-01-28 13:38 | XMS_ITS | Clinical Summary ---
Author Organization [facility] Address [address] [place] [address] Care Team Providers Care Integrated Pest Management Technician Name Role Phone Dash Scottbubba CASSIE Primary Care Provider [phone] Allergies No known active allergies Medications famotidine [...] Comments Blood Pressure 140/66 09/27/2024 5:50 PM WOOL BUYER Pulse 70 09/27/2024 5:50 PM WOOL BUYER Temperature 36.7 C (98 F) 09/27/2024 5:50 PM WOOL BUYER Respiratory Rate 18 09/27/2024 5:50 PM WOOL BUYER Oxygen Saturation 99% 09/27/2024 2:31 PM WOOL BUYER Inhaled Oxygen Concentration - - Weight 77.1 kg (170 lb) 09/27/2024 2:31 PM WOOL BUYER Height 154.9 cm (5' 1 ) 09/27/2024 2:31 PM WOOL BUYER Body Mass Index 32.12 09/27/2024 2:31 PM WOOL BUYER Plan of Treatment Health Maintenance Due Date [...] FINDING(S) Ordered By: MARISSA BOWLING Interpreted By: Biran Alvarez MD, 07/09/2024 10:41 AM Narrative 07/12/2024 12:[address] PM [address] [place] [address] Examination: Digital screening mammogram with CAD. Clinical [...] one year would seem adequate. Marissa Bowling [facility] MAMMO Final Result * HUMAN PAPILLOMAVIRUS, HIGH-RISK TYPES (06/21/2024 8:00 AM CDT) SPEC DESCRIPTION CERVIX 06/23/20 3:28 PM CDT [facility] HPV DNA HIGH RISK NEGATIVE NEGATIVE 06/24/2024 12:22 AM CDT [facility] Comment:SEE CYTOLOGY REPORT 06/21/2024 8:00 AM CDT Marissa Bowling [facility] PATHOLOGY/CYTOLOGY ORDERABLES Final Result [facility] [address] [place] [address], from Last 3 Months or Most Recently Relevant to Health Maintenance Insurance [facility] Care Teams Integrated Pest Management Technician Relationship Specialty Start Date End Date Marissa Bowling FNP [address] [place] [phone] PCP - General Nurse Practitioner Family 06/17/24
--- OUTSIDE RECORDS SUMMARY | 2025-01-28 13:38 | XMS_ITS | Encounter Summary ---
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
--- OUTSIDE RECORDS SUMMARY | 2025-01-28 13:39 | XMS_ITS | CONTINUITY OF CARE DOCUMENT ---
Author Name anh kamara Address Unknown Organization [facility] Address [address] [place] [address] [address] [place] [address] Phone [phone] Care Team Providers Care Tour Production Supervisor Name Role Phone MOE MARIA, ARETHA Unavailable MOE MARIA, ARETHA Unavailable INSURANCE PROVIDERS Payer name Policy type / Coverage type [place] [employer] party ID [facility] [id number]
--- OUTSIDE RECORDS SUMMARY | 2025-01-28 13:39 | XMS_ITS | Clinical Summary ---
Author Organization [facility] Address [address] [address] [place] [address] Care Team Providers Care Yarn Tester Name Role Phone Maria Alejandra Grubbsn Shiloh DECK OFFICER-TECHNOLOGY ADOPTION MANAGER Primary Care Provider Source Comments [facility],non-owned Affiliates and Associated Physician Practices is amultiple site organization consisting of ambulatory clinics and hospital sitesin [place], [place], [place] and [place]. This disclosure is being madepursuant to the Care Everywhere program and may not contain all information available regarding this patient. Last updated 18.[facility] Allergies No known active allergies Medications Be [...] age to complete this topic Care Teams Yarn Tester Relationship Specialty Start Date End Date Maisha Grubbs, DECK OFFICER-TECHNOLOGY ADOPTION MANAGER [address] [place] [phone] PCP - General 10/02/21
== END 2025-01-28 13:29 | disposition home or self-care (01) ==
PROVIDERS: PCP Family Medicine; Visit Provider Nurse Practitioner Family
DX: M54.50 Low back pain, unspecified (principal); M43.06 Spondylolysis, lumbar region
CPT/HCPCS: 72131

== ENCOUNTER 2025-05-05 01:24 | Emergency (ER) | payer OTHER, SELFPAY ==
[2025-05-05 01:25] VITALS: BP 156/97; PULSE 111; RESP 18; TEMP 35.8; O2SAT 94
--- OUTSIDE RECORDS SUMMARY | 2025-05-05 01:26 | XMS_ITS | Clinical Summary ---
Author Organization [facility] Address [address] [place] [address] Care Team Providers Care Floor Person Name Role Phone Zamarripa, Anaid MATTHEWS Primary Care Provider [phone] Allergies No known active allergies Medications famotidine 20 MG tabletIndicati ons:Gastroesop hageal Reflux Disease TAKE 1 TABLET BY MOUTH TWICE A DAY NEEDED FOR EPIGASTRIC PAIN 1 Active sertraline (ZOLOFT) 50 MG tabletIndicati ons:Depression Take 1 tablet (50 mg total) by mouth daily. Indications: Depression 5 Active lisinopril (PRINIVIL) 10 MG tabletIndicati ons:Hypertensi on Take 1 tablet (10 mg total) by mouth daily. Indications: High Blood Pressure 5 Active oxyCODONE immediate release (ROXICODONE) 10 MG immediate release tablet Take 1 tablet (10 mg total) by mouth every 6 (six) hours as needed. 5 Active ibuprofen (MOTRIN) 400 MG tablet Take 2 tablets (800 mg total) by mouth every 6 (six) hours as needed for Pain. Active HYDROcodone-ac etaminophen 5-325 MG tabletIndicati ons:Acute Pain < 3 Day Supply Take 1-2 tablets by mouth every 6 (six) hours as needed. Indications: Acute Pain < 3 Day Supply 12 tablet 1 04/26/20 25 Discontinu ed(Stop Taking at Discharge) oxyCODONE-acet aminophen (PERCOCET) 7.5-325 MG tabletIndicati ons:Acute Pain < 3 Day Supply Take 1 tablet by mouth every 6 (six) hours as needed for Pain. Indications: Acute Pain < 3 Day Supply 12 tablet 04/29/20 Active Problems Problem Noted Date Diagnosed Date Closed left ankle fracture 04/24/2025 Encounters Date Type Department Care Team Description 05/03/2025 Travel 04/29/2025 12:00 PM CDT Home Care Visit [facility] Home Care [facility] [address] [place] [address] Lou Maldonado RN SN NON ADMIT SOC 04/27/2025 Travel 04/25/2025 10:23 AM CDT Anesthesia Event [facility] - [facility] [address] [place] [address] Michelet Banda MD Lerma, Elena M, LIZBETH 04/25/2025 10:00 AM CDT - 04/25/2025 12:00 PM CDT Surgery [facility] - [facility] [address] [place] [address] Fabrice Braun, DPM RIGHT ANKLE CLOSED REDUCTION WITH APPLICATION OF EXTERNAL FIXATOR 04/24/2025 12:43 PM CDT - 04/26/2025 2:45 PM CDT Hospital Encounter [facility] [address] [place] [address] Romel Steve MD Yousuf, Muhammad S, MD Alam, Khan, MD Schleunes, Scott D, DPLor Leg Pain Discharge Disposition: Home or Self Care (Routine Discharge) 04/24/2025 Travel from Last 3 Months Family History Medical History Relation Comments Cancer Father Hypertension Father Cancer Mother Relation Status Comments Father Mother Social History Tobacco Use Types Packs/Day Years Used Date Smoking Tobacco: Former Cigarettes Smokeless Tobacco: Never Tobacco Cessation:Counseling Given: Not Answered Comments:Quit smoking 21 years ago Alcohol Use Standard Drinks/Week Comments Not Currently 0 (1 standard drink = 0.6 oz pur e alcohol) [facility] Utilities Answer Date Recorded In the past 12 months has [employer], gas, oil, or water Firework threatened to shut off services in your home? No 04/26/2025 Humiliation, Afraid, Rape, and Kick questionnair e Answer Date Recorded Within the last year, have y ou been afraid of your partner or ex-partner? No 04/26/2025 Within the last year, have y ou been humiliated or emotionally abused in other ways by your partner or ex-partner? No Within the last year, have y ou been kicked, hit, slapped, or otherwise physically hurt by your partner or ex-partner? No 04/26/2025 Within the last year, have y ou been raped or forced to have any kind of sexual activity by your partner or ex-partner? No 04/26/2025 Overall Financial Resource Strain (CARDIA) Answe r Date Recorded How hard is it for you to pa y for the very basics like food, housing, medical care, and heating? Not hard at all 04/26/2025 Hunger Vital Sign Answer Date Recorded Within the past 12 months, y ou worried that your food would run out before you got the money to buy more. Never true 04/26/20 25 Within the past 12 months, t he food you bought just didn't last and you didn't have money to get more. Never true 04/26/2025 PRAPARE - Transportation Answer Date Re corded In the past 12 months, has l ack of transportation kept you from medical appointments or from getting medications? No 04/04 In the past 12 months, has l ack of transportation kept you from meetings, work, or from getting things needed for daily living? No 04/26/2025 Housing Stability Vital Sign Answer Ralph e Recorded In the last 12 months, was t here a time when you were not able to pay the mortgage or rent on time? No 04/26/2025 In the past 12 months, how m any times have you moved where you were living? 0 04/26/2025 At any time in the past 12 m [facility], were you homeless or living in a chcf (including now)? No 04/26/2025 Comments No Sex and Gender Information Value Date Recorded Sex Assigned at Female 04/26/2025 11:18 AM CDT Legal Sex Female 7:48 PM CDT Gender Identity Female 04/26/2025 11:18 AM CDT Sexual Orientation Not on file Last Filed Vital Signs Vital Sign Reading Time Taken Comments Blood Pressure 124/67 04/26/2025 8:15 AM CDT Pulse 75 04/26/2025 8:15 AM CDT Temperature 37.1 C (98.8 F) 04/26/2025 8:15 AM CDT Respiratory Rate 18 04/26/2025 8:15 AM CDT Oxygen Saturation 96% 04/26/2025 8:15 AM CDT Inhaled Oxygen Concentration - - Weight 84.8 kg (187 lb) 04/27/2025 10:11 AM CDT Height 154.9 cm (5' 1) 04/27/2025 10:11 AM CDT Body Mass Index 35.33 04/27/2025 10:11 AM CDT Plan of Treatment Upcoming Encounters Date Type Department Care Team (Latest Contact Info) Description 05/11/2025 7:30 AM CDT Hospital Encounter [facility] - [facility] [address] [place] [address] aFbrice Braun, DPM [address] [place] [address] 05/11/2025 7:30 AM CDT Anesthesia Event [facility] - [facility] [address] [place] [address] Madina Jovel RN 05/11/2025 7:30 AM CDT - 05/11/2025 9:30 AM CDT Surgery [facility] - [facility] [address] [place] [address] Fabrice Braun, DPM [address] [place] [place] [address] OPEN REDUCTION INTERNAL FIXATION ANKLE WITH REMOVAL OF EXTERNAL FIXATOR Scheduled Procedures Name Priority Associated Diagnoses Date/Ti me OPEN REDUCTION INTERNAL FIXATION ANKLE RIGHT TRIMALLEOLAR ANKLE FRACTURE 05/11/2025 7:30 AM CDT Health Maintenance Due Date Last Done Comments Cervical Cancer Screening Pa p Smear (Age 30 to 64) Every 3 Years 1964 Colorectal Cancer Screening Colonoscopy (10 Years) 1964 Annual Physical 1967 DTaP, Tdap and Td Vaccines ( 1 - Tdap) 1983 Pneumococcal Vaccine: 50+ Ye ars (1 of 1 - PCV) 2014 Zoster Vaccines (1 of 2) 2014 COVID-19 Vaccine (1 - 2023-2 5 season) 2024 Mammogram Screening 07/09/2026 07/09/2024 Cervical Cancer Screening Pa p with HPV Testing (Age 30 to 64) Every 5 Years 06/21/2029 06/21/2024 Cervical Cancer Screening with HPV 06/21/2029 RSV Immunization or 60+ Years (1 - 1-dose 75+ series) 2039 Hepatitis C Completed 04/26/2025 Meningococcal B Vaccine Aged Out No l onger eligible based on patient's age to complete this topic Meningococcal Vaccine Aged Out No jonnathan tere eligible based on patient's age to complete this topic RSV Immunizations Under 20 Months Aged Out No longer eligible based on patient's age to complete this topic Goals Goal Patient Goal Type Associated Problems Recent Progress Patient-Stated? Author Autogenerat ed Goal Care Plan Autogenerated Problem No Cora Hartmann RN Medical Devices Implanted Type Area Product Support Rep Device Identifier Shelf Expiration Date Model / Serial / Lot Bar To Pin Clamp Main Implanted:Qty: 6 on 04/25/2025 by Fabrice Braun DPM at [facility] Right: Ankle [employer]OVIS [employer]IN SNE-9000-BT C / / Clamp Double Angular Bor To Pin Main Implanted:Qty: 1 on 04/25/2025 by Fabrice Braun DPM at [facility] Right: Ankle ENOVIS COLLIN DNE-9000-DA CC / / Half Pin 5mm - 180mm Implanted:Qty: 2 on 04/25/2025 by Fabrice Braun DPM at [facility] Right: Ankle [employer]IN [id number] / / 5.0 Transfixing Pin Implanted:Qty: 1 on 04/25/2025 by Fabrice Braun DPM at [facility] Right: Ankle ENOVIS COLLIN DNE-5000-30 0 / / Carbon Fiber Boris 400mm Implanted:Qty: 2 on 04/25/2025 by Fabrice Braun DPM at [facility] Right: Ankle ENOVIS COLLIN DNE-9000-40 0-CF / / [id number] Implanted:Qty: 6 on 04/25/2025 by Fabrice Braun DPM at [facility] Right: Ankle ENOVIS COLLIN DNE-[id number] 1A / / Clamp Bar To Angular Correction Implanted:Qty: 2 on 04/25/2025 by Fabrice Braun DPM at [facility] Right: Ankle ENOVIS [employer]LLIN DNE-9000-BA CC / / Block/Spacer 150mm Implanted:Qty: 1 on 04/25/2025 by Fabrice Braun, JOVANNY at [facility] Right: Ankle ENOVIS [employer]LLIN [id number] / / Procedures Procedure Name Priority Date/Time Associated Diagnosis Comments PHOSPHORUS, INORGANIC PHOSPHATE Routine 04/26/2025 5:12 AM CDT MAGNESIUM Routine 04/26/2025 5:12 AM CDT COMPREHENSIVE METABOLIC PANEL Routine 04/26/2025 5:12 AM CDT CBC W/DIFF AUTOMATED Routine 04/26/2025 5:12 AM CDT HEPATITIS PANEL,ACUTE Routine 04/26/2025 5:12 AM CDT PERIPHERAL BLOCK Routine 04/25/2025 12:2 5 PM CDT SURG XR FLUOROSCOPY Routine 04/25/2025 1 1:38 AM CDT OPEN REDUCTION INTERNAL FIXATION ANKLE 04/25/2025 10:08 AM CDT Right Ankle Fracture Case Notes OC #5 Wants 0900Added 04/24/25 @1611 CC per Morena Mcghee Table, 9in C-arm, [place] Rep notified by RM. MRSA AMP Nurse Collected Priority 04/25/2025 4:00 AM CDT THYROID STIM HORMONE TSH Routine 04/25/2025 3:14 AM CDT MAGNESIUM Routine 04/25/2025 3:14 AM CDT HEMOGLOBIN, GLYCOSYLATED Routine 04/25/2025 3:14 AM CDT PROTHROMBIN TIME, VENOUS Routine 04/25/2025 3:14 AM CDT COMPREHENSIVE METABOLIC PANEL Routine 04/25/2025 3:14 AM CDT CBC W/DIFF AUTOMATED Routine 04/25/2025 3:14 AM CDT PARTIAL THROMBOPLASTIN TIME,PTT STAT 04/24/2025 4:48 PM CDT PROTHROMBIN TIME, VENOUS STAT 04/24/2025 4:48 PM CDT BASIC METABOLIC PANEL STAT 04/24/2025 4:48 PM CDT CBC W/DIFF AUTOMATED STAT 04/24/2025 4:[address] ANKLE RT WO CON STAT 04/24/2025 4: 29 PM CDT ECG 12-LEAD STAT 04/24/2025 3:55 PM CDT XR CHEST PORTABLE STAT 04/24/2025 3:3 8 PM CDT XR ANKLE RT M3V STAT 04/24/2025 3:38 PM CDT XR ANKLE RT 2V STAT 04/24/2025 1:54 PM CDT PROCEDURAL SEDATION Routine 04/24/2025 1 :26 PM CDT XR TIBIA+FIBULA RT 2V STAT 04/24/2025 1:06 PM CDT XR ANKLE RT M3V STAT 04/24/2025 1:06 PM CDT MG SCREENING W ELVA JOSIAH DIGI Routine 07/09/2024 9:48 AM CDT Visit for screening mammogram HUMAN PAPILLOMAVIRUS, HIGH-RISK TYPES Routine 06/21/2024 8:00 AM CDT from Last 3 Months or Most Recently Relevant to Health Maintenance Results * (ABNORMAL) COMPREHENSIVE METABOLIC PANEL (04/26/2025 5:12 AM CDT) Only the most recent of2 resultswithin the time period is included. SODIUM S/P/B 142 136 - 145 MMOL/L 04/26/2025 6:38 AM CDT [facility] POTASSIUM S/P/B 3.9 3.5 - 5.1 MMOL/L 04/26/2025 6:38 AM CDT [facility] CHLORIDE S/P/B 114 97 - 115 MMOL/L 04/26/2025 6:38 AM CDT [facility] CO2 23.5 21.0 - 32.0 MMOL/L 04/26/2025 6:38 AM CDT [facility] GLUCOSE 107(H) 74 - 106 MG/DL 04/26/2025 6:38 AM CDT [facility] BUN 17 7 - 18 MG/DL 04/26/2025 6:38 AM CDT [facility] CREATININE S/P/B 1.02 0.55 - 1.02 MG/DL 04/26/2025 6:38 AM CDT [facility] CALCIUM S/P/B 8.9 8.5 - 10.1 MG/DL 04/26/2025 6:38 AM CDT [facility] BILIRUBIN TOTAL S/P/B 0.5 0.2 - 1.0 MG/DL 04/26/2025 6:38 AM [facility] ALKALINE PHOSPHATASE S/P/B 71 50 - 130 U/L 04/26/2025 6:38 AM [facility] AST 91(H) 15 - 37 U/L 04/26/2025 6:38 AM [facility] ALT 168(H) 13 - 56 U/L 04/26/2025 6:38 AM [facility] TOTAL PROTEIN S/P/B 5.8(L) 6.4 - 8.2 G/DL 04/26/2025 6:38 AM [facility] ALBUMIN S/P/B 2.9(L) 3.4 - 5.0 G/DL 04/26/2025 6:38 AM [facility] ANION GAP 4.5 2.0 - 10.0 MMOL/L 04/26/2025 6:38 AM [facility] OSMOLALITY (CALC) 296 MOSM/KG 025 6:38 AM [facility] Comment:REFERENCE RANGE NOT ESTABLISHED GFR ESTIMATE 63(L) >90 ML/MIN/1. 73 M2 04/26/2025 6:38 AM [facility] GFR NOTES GFR REFERENCE S: 04/26/2025 6:38 AM [facility] Comment: THE ESTIMATED GFR IS CALCULATED USING THE 2020 CKD-EPI EQUATION. THE FOLLOWING CATEGORIES FOR GRADING RENAL FUNCTION ARE RECOMMENDED BY THE INTERNATIONAL SOCIETY OF NEPHROLOGY (KDIGO 2012 CLINICAL PRACTICE GUIDELINE). G1,NORMAL OR HIGH: >89 ml/min/1.73 m2 G2,MILDLY DECREASED: 60-89 ml/min/1.73 m2 G3A,MILDLY TO MODERATELY DECREASED: 45-59 ml/min/1.73 m2 G3B,MODERATELY TO SEVERELY DECREASED: 30-44 ml/min/1.73 m2 G4,SEVERELY DECREASED: 15-29 ml/min/1.73 m2 G5,KIDNEY FAILURE: <15 ml/min/1.73 m2 04/26/2025 5:12 AM CDT Fabrice Braun [facility] Final Resu lt Performing Organization Address [facility] Co de Phone Number [facility] [address] [place] [address], [phone] * HEPATITIS PANEL,ACUTE (04/26/2025 5:12 AM CDT) HEPATITIS B SURFACE AG NON-REACT DAVID NON-REACT DAVID 04/26/2025 7:04 AM CDT [facility] Comment:HBsAg NOT DETECTED. HEP B CORE IGM NON-REACT DAVID NON-REACT DAVID 04/26/2025 7:04 AM CDT [facility] Comment: IgM ANTI HBc NOT DETECTED. DOES NOT EXCLUDE THE POSSIBILITY OF EXPOSURE TO OR INFECTION WITH HBV. NO RETEST REQUIRED. HIGH DOSES OF BIOTIN MAY INTERFERE WITH THIS TEST RESULT. CORRELATION TO CLINICAL HISTORY AND PRESENTATION RECOMMENDED. HAV IGM NON-REACT DAVID NON-REACT DAVID 04/26/2025 7:04 AM CDT [facility] Comment: IgM ANTI HAV NOT DETECTED. DOES NOT EXCLUDE THE POSSIBILITY OF EXPOSURE TO OR INFECTION WITH HAV. LEVELS OF IgM ANTI HAV MAY BE BELOW THE CUTOFF IN EARLY INFECTION. HEPATITIS C AB NON-REACT DAVID NON-REACT DAVID 04/26/2025 7:04 AM CDT [facility] Comment: ANTIBODIES TO HCV NOT DETECTED. DOES NOT EXCLUDE THE POSSIBILITY OF EXPOSURE TO HCV. 04/26/2025 5:12 AM CDT Fabrice Braun DP LABORATORY Final Resu lt Performing Organization Address [facility]/ZIP Co de Phone Number [facility] [address] [place] [address], [place] [phone] * (ABNORMAL) CBC W/DIFF AUTOMATED (04/26/2025 5:12 AM CDT) Only the most recent of3 resultswithin the time period is included. WBC 9.94 4.00 - 10.80 x10'3/uL 04/26/2025 5:57 AM CDT [facility] RBC 4.10 4.10 - 5.40 x10'6/uL 04/26/2025 5:57 AM CDT [facility] HGB 11.9(L) 12.0 - 16.0 G/DL 04/26/2025 5:57 AM CDT [facility] HCT 36.5 36.0 - 47.0 % 04/26/2025 5:57 AM CDT [facility] MCV 89.0 78.0 - 100.0 FL 04/26/2025 5:57 AM CDT [facility] MCH 29.0 27.0 - 31.0 PG 04/26/2025 5:57 AM CDT [facility] MCHC 32.6(L) 33.0 - 36.0 G/DL 04/26/2025 5:57 AM CDT [facility] RDW 12.1 11.5 - 14.5 % 04/26/2025 5:57 AM CDT [facility] PLT 168 150 - 350 x10'3/uL 04/26/2025 5:57 AM CDT [facility] MPV 11.2(H) 7.4 - 10.4 FL 04/26/2025 5:57 AM CDT [facility] DIFFERENTIAL TYPE AUTOMATED DIFFERENTIAL 04/26/2025 5:57 AM CDT [facility] SEG NEUTROPHILS 71.9 % 5:57 AM CDT [facility] LYMPHOCYTES 18.5 % 04/26/2025 5:57 AM CDT [facility] MONOCYTES 8.4 % 04/26/2025 5:57 AM CDT [facility] EOSINOPHILS 0.4 % 04/26/2025 5:57 AM CDT [facility] BASOPHILS 0.3 % 04/26/2025 5:57 AM CDT [facility] IMMATURE GRANS % 0.5 % 04/26/20 5:57 AM CDT [facility] ABS. NEUTROPHILS 7.15 1.60 - 8.30 x10'3/uL 04/26/2025 5:57 AM CDT [facility] ABS. LYMPHOCYTES 1.84 0.80 - 4.70 x10'3/uL 04/26/2025 5:57 AM CDT [facility] ABS. MONOCYTES 0.83 0.00 - 1.50 x10'3/uL 04/26/2025 5:57 AM CDT [facility] ABS. EOSINOPHILS 0.04 0.00 - 0.40 x10'3/uL 04/26/2025 5:57 AM CDT [facility] ABS. BASOPHILS 0.03 0.00 - 0.20 x10'3/uL 04/26/2025 5:57 AM CDT [facility] ABS. IMMATURE GRANULOCYTES 0.05(H) 0.00 - 0.03 x10'3/uL 04/26/2025 5:57 AM CDT [facility] ABS. NUCLEATED RBC'S 0.00 0.00 - 0.01 x10'3/uL 04/26/2025 5:57 AM CDT [facility] NRBC % 0.0 % 04/26/2025 5:57 AM CDT [facility] 04/26/2025 5:12 AM CDT us Fabrice Braun DPM LABORATORY Final Resu lt [facility] [address] [place] [address], [phone] * PHOSPHORUS, INORGANIC PHOSPHATE (04/26/2025 5:12 AM CDT) Pathologist [facility] PHOSPHORUS 2.6 2.5 - 4.9 MG/DL 04/26/2025 6:38 AM CDT [facility] 04/26/2025 5:12 AM CDT Fabrice Braun [facility] Final Resu lt Performing Organization Address [facility] de Phone Number [facility] [address] [place] [address], [place] [phone] * MAGNESIUM (04/26/2025 5:12 AM CDT) Only the most recent of2 resultswithin the time period is included. MAGNESIUM 2.1 1.6 - 2.6 MG/DL 04/26/2025 6:38 AM CDT [facility] 04/26/2025 5:12 AM CDT Fabrice Braun [facility] Final Resu lt Performing Organization Address [facility] de Phone Number [facility] [address] [place] [address], [place] [phone] * Peripheral Block (04/25/2025 12:25 PM CDT) Michelet Teran MD - 04/25/2025 12:25 PM CDT Michelet Banda MD 04/25/2025 12:27 PM Peripheral Block Performed by: Michelet Banda MD Authorized by: Michelet Banda MD Procedure Start: 04/25/2025 12:05 PM Procedure Stop: 04/25/2025 12:10 PM Patient Location: Post-op Reason for Block: at surgeon's request and post-op pain management patient identified, IV checked, site marked, risks and benefits discussed, consent, monitors and equipment checked, pre-op evaluation and timeout performed Patient Position: Supine Monitoring: Blood pressure, continuous pulse ox, ECG/EKG and heart rate Prep: Chlorhexidine Block Type: Femoral at Adductor Canal and Popliteal Laterality: Right Injection Technique: Single-shot Local Infiltration: Lidocaine 1% Dose: 3 Needle Length: 4 in Needle Localization: Anatomical landmarks and ultrasound guidance Local Volume: 50 (30 ml Popliteal + 20 ml adductor canal) Injection Assessment/ Attestation: Incremental injection, local visualized surrounding nerve on ultrasound, negative aspiration for heme, no apparent complications and no paresthesia on injection Heart Rate Change: No Michelet Banda MD [place] ANESTHESIA Final Result * SURG XR FLUOROSCOPY (04/25/2025 11:38 AM CDT) Anatomical Region Laterality Modality Undefined Radio Fluoroscop y 04/25/2025 10:5 4 AM CDT Narrative 04/25/2025 10:54 AM CDT This report does not contain a radiologist's interpretation. Please review associated procedure and/or operative report. Procedure Note Anthony Garcia MD - 04/25/2025 This report does not contain a radiologist's interpretation. Please review associated procedure and/or operative report. Fabrice Braun DPM IMAGES ONLY Final Resu lt * MRSA PCR nares SCREENING (04/25/2025 4:00 AM CDT) SPECIMEN SOURCE RESPIRATORY, NOSE 04/25/2025 4:02 AM CDT [facility] MRSA BY PCR NASAL METHICILLIN RESISTANT STAPH AUREUS NOT DETECTED METHICILLIN RESISTANT STAPH AUREUS NOT DETECTED 04/25/2025 11:26 AM CDT [facility] NASAL STRUCTURE / Unknown 04/25/2025 4:00 AM CDT Ursula Barbosa MD MICROBIOLOGY - GENERAL KRISTEN LEBLANC Final Result [facility] [address] [place] [address], [phone] * (ABNORMAL) HEMOGLOBIN, GLYCATED (04/25/2025 3:14 AM CDT) HGB A1C 5.7(H) <5.7 % 04/25/2025 4:29 AM CDT [facility] ESTIMATED AVG GLUCOSE 117(H) 74 - 114 MG/DL 04/25/2025 4:29 AM CDT [facility] 04/25/2025 3:14 AM CDT us Ursula Barbosa MD LABORATORY Final Resul t Performing Organization Address [facility] de Phone Number [facility] [address] [place] [address], [phone] * PROTHROMBIN TIME, VENOUS (04/25/2025 3:14 AM CDT) Only the most recent of2 resultswithin the time period is included. PROTIME 11.8 9.4 - 12.5 SEC 04/25/2025 4:17 AM CDT [facility] INR 1.0 0.8 - 1.1 04/25/2025 4:17 AM CDT [facility] 04/25/2025 3:14 AM CDT us Ursula Barbsoa MD LABORATORY Final Resul t Performing Organization Address [facility] de Phone Number [facility] [address] [place] [address], [phone] * THYROID STIM HORMONE, TSH (04/25/2025 3:14 AM CDT) TSH 0.493 0.358 - 3.740 uIU/ML 04/25/2025 4:31 AM CDT [facility] Comment: ASSAY PERFORMED BY CHEMILUMINESCENCE METHODOLOGY USING [employer] [facility]. PATIENT RESULTS DETERMINED BY ASSAYS USING DIFFERENT MANUFACTURERS FOR METHODS MAY NOT BE COMPARABLE. 04/25/2025 3:14 AM CDT us Ursula Barbosa MD LABORATORY Final Resul t Performing Organization Address [facility] Co de Phone Number [facility] [address] [place] [address], [phone] * (ABNORMAL) PARTIAL THROMBOPLASTIN TIME,PTT (04/24/2025 4:48 PM CDT) PTT 21.1(L) 25.1 - 36.5 SEC 04/24/2025 5:40 PM CDT [facility] 04/24/2025 4:48 PM CDT us Romel Steve MD LABORATORY Final Result Performing Organization Address [facility] Co de Phone Number [facility] [address] [place] [address], [phone] * (ABNORMAL) BASIC METABOLIC PANEL (04/24/2025 4:48 PM CDT) SODIUM S/P/B 141 136 - 145 MMOL/L 04/24/2025 5:31 PM CDT [facility] POTASSIUM S/P/B 4.1 3.5 - 5.1 MMOL/L 04/24/2025 5:31 PM CDT [facility] CHLORIDE S/P/B 113 97 - 115 MMOL/L 04/24/2025 5:31 PM CDT [facility] CO2 23.0 21.0 - 32.0 MMOL/L 04/24/2025 5:31 PM CDT [facility] GLUCOSE 108(H) 74 - 106 MG/DL 04/24/2025 5:31 PM CDT [facility] BUN 20(H) 7 - 18 MG/DL 04/24/2025 5:31 PM CDT [facility] CREATININE S/P/B 1.08(H) 0.55 - 1.02 MG/DL 04/24/2025 5:31 PM CDT [facility] CALCIUM S/P/B 8.8 8.5 - 10.1 MG/DL 04/24/2025 5:31 PM CDT [facility] ANION GAP 5.0 2.0 - 10.0 MMOL/L 04/24/2025 5:31 PM CDT [facility] OSMOLALITY (CALC) 295 MOSM/KG 025 5:31 PM CDT [facility] Comment:REFERENCE RANGE NOT ESTABLISHED GFR ESTIMATE 58(L) >90 ML/MIN/1. 73 M2 04/24/2025 5:31 PM CDT [facility] GFR NOTES GFR REFERENCE S: 04/24/2025 5:31 PM CDT [facility] Comment: THE ESTIMATED GFR IS CALCULATED USING THE 2020 CKD-EPI EQUATION. THE FOLLOWING CATEGORIES FOR GRADING RENAL FUNCTION ARE RECOMMENDED BY THE [employer]PHR[employer] (KDIGO 2012 CLINICAL PRACTICE GUIDELINE). G1,NORMAL OR HIGH: >89 ml/min/1.73 m2 G2,MILDLY DECREASED: 60-89 ml/min/1.73 m2 G3A,MILDLY TO MODERATELY DECREASED: 45-59 ml/min/1.73 m2 G3B,MODERATELY TO SEVERELY DECREASED: 30-44 ml/min/1.73 m2 G4,SEVERELY DECREASED: 15-29 ml/min/1.73 m2 G5,KIDNEY FAILURE: <15 ml/min/1.73 m2 04/24/2025 4:48 PM CDT Romel Steve MD LABORATORY Final Result [facility] [address] [place] [address], [id number] * CT ANKLE RT WO CON (04/24/2025 4:29 PM CDT) Anatomical Region Laterality Modality Ankle Computed Tomogra phy 04/24/2025 5:02 PM CDT Impressions 04/24/2025 5:17 PM CDT IMPRESSION: COMPLEX, COMMINUTED TRIMALLEOLAR FRACTURE SUBLUXATION INJURY OF THE RIGHT ANKLE. Referred By: Interpreted By: Stewart Vasquez MD, 04/24/2025 5:02 PM Narrative 04/24/2025 5:17 PM CDT [facility] [address] [place], [place] [address] EXAM: CT ANKLE RT WO CON INDICATION: Right ankle fracture. TECHNIQUE: Axial noncontrast CT of the right ankle was performed. Coronal and sagittal reformatted images were created and reviewed. A radiation dose lowering technique was used for this procedure, which may include, but is not limited to, dose reduction technique, automated exposure control, the use of iterative reconstruction, ALARA (As Low As Reasonably Achievable) techniques, and Image Gently techniques. COMPARISON EXAM: X-ray studies of the right ankle and right tibia and fibula from earlier today. FINDINGS: Comminuted, complex, moderately laterally displaced intra-articular trimalleolar fracture of the distal right tibia and fibula. The talus and subtalar structures are displaced laterally on the order of and 12 mm. The fractures extend into the ankle joint with 4 mm of fragment separation at the articular surface of the posterior lateral distal tibia and about 5 to 6 mm at the medial tibial malleoli are. Distal fibular fracture is predominantly type A/B with the oblique fracture extending obliquely to about the level of the tibiotalar joint at its distalmost aspect. There is slight lateral angulation of the fibula on the order of about 25 to 30 degrees. There are several small fracture fragments at the posterior malleolar fracture site with potential intra-articular extension into the tibiotalar joint space. Moderate associated soft tissue swelling. Sternal casting material is present. Procedure Note Stewart Vasquez MD - 04/24/2025 [facility] [address], [place] [address] EXAM: CT ANKLE RT WO CON INDICATION: Right ankle fracture. TECHNIQUE: Axial noncontrast CT of the right ankle was performed. Coronaland sagittal reformatted images were created and reviewed. A radiation dose lowering technique was used for this procedure, which mayinclude, but is not limited to, dose reduction technique, automatedexposure control, the use of iterative reconstruction, ALARA (As Low AsReasonably Achievable) techniques, and Image Gently techniques. COMPARISON EXAM: X-ray studies of the right ankle and right tibia andfibula from earlier today. FINDINGS: Comminuted, complex, moderately laterally displacedintra-articular trimalleolar fracture of the distal right tibia andfibula. The talus and subtalar structures are displaced laterally on theorder of and 12 mm. The fractures extend into the ankle joint with 4 mmof fragment separation at the articular surface of the posterior lateraldistal tibia and about 5 to 6 mm at the medial tibial malleoli are.Distal fibular fracture is predominantly type A/B with the obliquefracture extending obliquely to about the level of the tibiotalar joint atits distalmost aspect. There is slight lateral angulation of the fibulaon the order of about 25 to 30 degrees. There are several small fracturefragments at the posterior malleolar fracture site with potentialintra-articular extension into the tibiotalar joint space. Moderateassociated soft tissue swelling. Sternal casting material is present. IMPRESSION: COMPLEX, COMMINUTED TRIMALLEOLAR FRACTURE SUBLUXATION INJURYOF THE RIGHT ANKLE. Referred By: Interpreted By: Stewart Vasquez MD, 04/24/2025 5:02 PM Azael Amezcua MD CT Final Result * ECG 12 lead (04/24/2025 3:55 PM CDT) 04/24/2025 3:55 PM CDT Narrative [facility] - 04/24/2025 4:48 PM CDT [facility] Test Date: 2025-04-24 Pat Name: YURI LEIVA Department: 70 Room: EXAM A Gender: Female Brazer Electronic: : 1965 Requested By: ROMEL STEVE Order Number: [id number] Reading MD: Anand Avitia Measurements Intervals [place] Rate: 85 P: 46 NM: 149 QRS: -43 QRSD: 104 T: 41 QT: 390 QTc: 466 Interpretive Statements SINUS RHYTHM LEFT AXIS DEVIATION [QRS AXIS < -30] Poor R Wave Progression Procedure Note Anand Avitia MD - 04/24/2025 [facility] Test Date: 2025-04-24 Pat Name: YURI LEIVA Department: 70 Room: EXAM A Gender: Female Brazer Electronic: : 1965 Requested By: ROMEL STEVE Order Number: [id number] Reading MD: Anand Avitia Measurements Intervals [place] Rate: 85 P: 46 NM: 149 QRS: -43 QRSD: 104 T: 41 QT: 390 QTc: 466 Interpretive Statements SINUS RHYTHM LEFT AXIS DEVIATION [QRS AXIS < -30] Poor R Wave Progression us Romel Steve MD ECG ORDERABLES Final Result [facility] * XR CHEST PORTABLE (04/24/2025 3:38 PM CDT) Anatomical Region Laterality Modality Chest Radiographic Milagros ging 04/24/2025 3:55 PM CDT Impressions 04/24/2025 3:56 PM CDT IMPRESSION: Linear opacification within the RIGHT lung concerning for atelectasis. Diffuse opacification of the lungs bilaterally are suspected to be secondary to atelectasis in light of the low lung volumes. No effusions. Referred By: Interpreted By: Trey Mcfadden MD, 04/24/2025 3:55 PM Narrative 04/24/2025 3:56 PM CDT [facility] [address] [place], [place] [address] Procedure(s): XR CHEST PORTABLE Date of service: 04/24/2025 3:38 PM Provided clinical information: 60 years, Female, preopRIGHT ankle fracture. Procedure and materials: AP portable Comparison studies: None. Findings: Low lung volumes are present. Bilateral pulmonary opacifications are present concerning for atelectatic changes. No blunting of the costophrenic angles. Cardiac silhouette is not enlarged. Procedure Note Trey Mcfadden MD - 04/24/[address] [address] Procedure(s): XR CHEST PORTABLE Date of service: 04/24/2025 3:38 PM Provided clinical information: 60 years, Female, preopRIGHT anklefracture. Procedure and materials: AP portable Comparison studies: None. Findings: Low lung volumes are present. Bilateral pulmonary opacifications arepresent concerning for atelectatic changes. No blunting of thecostophrenic angles. Cardiac silhouette is not enlarged. IMPRESSION: Linear opacification within the RIGHT lung concerning for atelectasis. Diffuse opacification of the lungs bilaterally are suspected to besecondary to atelectasis in light of the low lung volumes. No effusions. Referred By: Interpreted By: Trey Mcfadden MD, 04/24/2025 3:55 PM Romel Steve MD GENERAL IMAGING Final Result * XR ANKLE RT M3V (04/24/2025 3:38 PM CDT) Only the most recent of2 resultswithin the time period is included. Anatomical Region Laterality Modality Ankle Radiographic Milagros ging 04/24/2025 3:56 PM CDT Impressions 04/24/2025 3:58 PM CDT IMPRESSION: Improved alignment of the fractures of the fibula and medial malleolus. Persistent slight subluxation of the tibiotalar articulation with widening of the medial gutter of the ankle. Referred By: Interpreted By: Trey Mcfadden MD, 04/24/2025 3:56 PM Narrative 04/24/2025 3:58 PM CDT [address] [address] Procedure(s): XR ANKLE RT M3V Date of service: 04/24/2025 3:38 PM Provided clinical information: 60 years, Female, post reduction, call when ready Procedure and materials: 3 views RIGHT ankle. Comparison studies: Right ankle 1:52 PM. Findings: Widening of the medial gutter of the ankle. There is slightly alignment of the fracture of the medial malleolus. Persistent comminuted fracture of the fibula is present. Slightly improved alignment as compared back to the 151 radiograph. Slightly decreased subluxation of the tibiotalar articulation as compared the prior study. A fracture of the posterior malleolus is not definitively identified. Procedure Note Trey Mcfadden MD - 04/24/[address] [address] Procedure(s): XR ANKLE RT M3V Date of service: 04/24/2025 3:38 PM Provided clinical information: 60 years, Female, post reduction, callwhen ready Procedure and materials: 3 views RIGHT ankle. Comparison studies: Right ankle 1:52 PM. Findings: Widening of the medial gutter of the ankle. There is slightly alignment ofthe fracture of the medial malleolus. Persistent comminuted fracture ofthe fibula is present. Slightly improved alignment as compared back to [id number] radiograph. Slightly decreased subluxation of the tibiotalararticulation as compared the prior study. A fracture of the posterior malleolus is not definitively identified. IMPRESSION: Improved alignment of the fractures of the fibula and medial malleolus.Persistent slight subluxation of the tibiotalar articulation with wideningof the medial gutter of the ankle. Referred By: Interpreted By: Trey Mcfadden MD, 04/24/2025 3:56 PM Azael Amezcua MD GENERAL IMAGING Final Result * XR ANKLE RT 2V (04/24/2025 1:54 PM CDT) Anatomical Region Laterality Modality Ankle Radiographic Milagros ging 04/24/2025 2:10 PM CDT Impressions 04/24/2025 2:12 PM CDT IMPRESSION: Fractures of the distal fibula and distal tibia are stable in appearance. Tibiotalar subluxation is present and unchanged. Stable widening of the medial gutter of the ankle. Referred By: Interpreted By: Trey Mcfadden MD, 04/24/2025 2:10 PM Narrative 04/24/2025 2:12 PM CDT [address] [address] Procedure(s): XR ANKLE RT 2V Date of service: 04/24/2025 1:50 PM Provided clinical information: 60 years, Female, Post reduction Procedure and materials: 2 views LEFT ankle. Comparison studies: April 24, 2025. Findings: There is a overlying cast is now present. There is a comminuted fracture that is present involving the distal fibula. This is similar alignment as compared back to prior examination. Persistent widening of the medial gutter of the ankle. Tibiotalar subluxation is present. This is similar as compared back to the prior examination. Procedure Note Trey Mcfadden MD - 04/24/[address] [address] Procedure(s): XR ANKLE RT 2V Date of service: 04/24/2025 1:50 PM Provided clinical information: 60 years, Female, Post reduction Procedure and materials: 2 views LEFT ankle. Comparison studies: April 24, 2025. Findings: There is a overlying cast is now present. There is a comminuted fracturethat is present involving the distal fibula. This is similar alignment ascompared back to prior examination. Persistent widening of the medialgutter of the ankle. Tibiotalar subluxation is present. This is similar ascompared back to the prior examination. IMPRESSION: Fractures of the distal fibula and distal tibia are stable in appearance.Tibiotalar subluxation is present and unchanged. Stable widening of themedial gutter of the ankle. Referred By: Interpreted By: Trey Mcfadden MD, 04/24/2025 2:10 PM Azael Amezcua MD GENERAL IMAGING Final Result * Procedural Sedation (04/24/2025 1:26 PM CDT) Romel Berg MD - 04/24/2025 1:26 PM CDT Romel Steve MD 04/24/2025 6:34 PM Procedural Sedation Date/Time: 04/24/2025 1:26 PM Performed by: Romel Steve MD Authorized by: Romel Steve MD History of Sedation Reaction: Hx of Sedation Reaction: No History Obtained By: History Obtained By: Patient Consent: Consent obtained: Written Consent given by: Patient Indications: Procedure performed: Fracture reduction Procedure necessitating sedation performed by: Different physician Pre-sedation assessment: NPO status caution: urgency dictates proceeding with non-ideal NPO status ASA classification ([place] Society of Anesthesiologists Classification Aug 29, 2018): Class 1-Normal Healthy Patient Sedation Plan: Deep Mouth openin or more finger widths Mallampati: I-soft palate, fauces, uvula, pillars TM Distance: <3 FB Neck ROM: Normal Pre-sedation assessment completed: 04/24/2025 1:10 PM Immediate pre-procedure details: Reviewed: vital signs and relevant labs/tests Verified: bag valve mask available, emergency equipment available, intubation equipment available, IV patency confirmed, oxygen available and suction available Procedure details (see MAR for exact dosages): Sedation start time: 04/24/2025 1:12 PM Sedation: Propofol Analgesia: Hydromorphone Intra-procedure monitoring: Blood pressure monitoring, magnetic testing technician, continuous capnometry, continuous pulse oximetry, frequent LOC assessments and frequent vital sign checks Sedation end time: 04/24/2025 1:45 PM Post-Sedation Exam:: Post-sedation assessment completed: 04/24/2025 1:56 PM Recovery: Patient returned to pre-procedure baseline Post-procedure details: Patient is stable for discharge or admission: yes Patient tolerance: Tolerated well, no immediate complications Sedation Complications: Sedation Complications:: no complications us Romel Steve MD PROCEDURE/MINOR SURGICAL ORD ERABLES Final Result * XR TIBIA+FIBULA RT 2V (04/24/2025 1:06 PM CDT) Anatomical Region Laterality Modality TibFib Radiographic Milagros ging 04/24/2025 1:42 PM CDT Impressions 04/24/2025 1:47 PM CDT IMPRESSION: Comminuted fracture of the distal fibula at the level of the distal diaphysis/proximal metaphysis. There is angulation and diastases of the fracture fragments. Widening of the medial gutter of the ankle due to soft tissue/ligamentous injury. Fracture of the medial malleolus. Suspect fracture of the posterior malleolus. Soft tissue swelling greatest about the medial malleolus. Referred By: Interpreted By: Trey Mcfadden MD, 04/24/2025 1:42 PM Narrative 04/24/2025 1:47 PM CDT [address] [address] Procedure(s): XR TIBIA+FIBULA RT 2V, XR ANKLE RT M3V Date of service: 04/24/2025 12:59 PM Provided clinical information: 60 years, Female, fxPATIENT EXAM DONE FOR FRACTURE. PT WAS SWINGING ON PORCH SWING, CHAIN BROKE AND SWING FELL AND FELL ONTO RT ANKLE. ON ARRIVAL, RT ANKLE IS DEFORMED. DONE PORTABLE. Procedure and materials: AP and crosstable lateral views of the RIGHT lower leg. AP , oblique and crosstable lateral view of the RIGHT ankle. Comparison studies: None. Findings: The proximal tibia and fibula are intact. There is a comminuted fracture that is present involving the distal fibula extending from the distal fibular diaphysis through the metaphyseal region. There is angulation that is present of the fracture fragments. There is widening of the medial gutter of the ankle. There is an additional fracture of the medial malleolus. There is a suspected fracture of the posterior malleolus. Soft tissue swelling about the ankle is present. Prominent plantar enthesopathy is present. Soft tissue swelling is present about the ankle greatest medially. Procedure Note Trey Mcfadden MD - 04/24/2025 [facility] [address] [place], [place] [address] Procedure(s): XR TIBIA+FIBULA RT 2V, XR ANKLE RT M3V Date of service: 04/24/2025 12:59 PM Provided clinical information: 60 years, Female, fxPATIENT EXAM DONE FORFRACTURE. PT WAS SWINGING ON PORCH SWING, CHAIN BROKE AND SWING FELL ANDFELL ONTO RT ANKLE. ON ARRIVAL, RT ANKLE IS DEFORMED. DONE PORTABLE. Procedure and materials: AP and crosstable lateral views of the RIGHTlower leg. AP , oblique and crosstable lateral view of the RIGHT ankle. Comparison studies: None. Findings: The proximal tibia and fibula are intact. There is a comminuted fracture that is present involving the distal fibulaextending from the distal fibular diaphysis through the metaphysealregion. There is angulation that is present of the fracture fragments.There is widening of the medial gutter of the ankle. There is anadditional fracture of the medial malleolus. There is a suspected fractureof the posterior malleolus. Soft tissue swelling about the ankle ispresent. Prominent plantar enthesopathy is present. Soft tissue swelling is present about the ankle greatest medially. IMPRESSION: Comminuted fracture of the distal fibula at the level of the distaldiaphysis/proximal metaphysis. There is angulation and diastases of thefracture fragments. Widening of the medial gutter of the ankle due to soft tissue/ligamentousinjury. Fracture of the medial malleolus. Suspect fracture of the posteriormalleolus. Soft tissue swelling greatest about the medial malleolus. Referred By: Interpreted By: Trey Mcfadden MD, 04/24/2025 1:42 PM us Romel Steve MD GENERAL IMAGING Final Result * MG SCREENING W ELVA JOSIAH DIGI (07/09/2024 9:48 AM CDT) Anatomical Region Laterality Modality Breast Bilateral Mammography 07/09/2024 10:4 1 AM CDT Impressions 07/12/2024 12:33 PM CDT IMPRESSION: No suspicious change since 07/27/2021. Recommendation: 1: Routine Screening Bilateral in 1 Year Assessment: ACR BI-RADS 2 - BENIGN FINDING(S) Ordered By: ANAID ZAMARRIPA Interpreted By: Brian Alvarez MD, 07/09/2024 10:41 AM Narrative 07/12/2024 12:33 PM CDT [address] [place] [address] Examination: Digital screening mammogram with CAD. Clinical [...] followup in one year would seem adequate. Anaid Zamarripa MANAGER OF CORPORATE MAMMO Final Result * HUMAN PAPILLOMAVIRUS, HIGH-RISK TYPES (06/21/2024 8:00 AM CDT) SPEC DESCRIPTION CERVIX 06/23/20 3:28 PM CDT [facility] HPV DNA HIGH RISK NEGATIVE NEGATIVE 06/24/2024 12:22 AM CDT [facility] Comment:SEE CYTOLOGY REPORT 06/21/2024 8:00 AM CDT Anaid Zamarripa MANAGER OF CORPORATE PATHOLOGY/CYTOLOGY ORDERABLES Final Result [facility] [address] [id number], from Last 3 Months or Most Recently Relevant to Health Maintenance Additional Health Concerns Active Problems Noted Date Diagnosed Date Autogenerated Problem 05/02/2025 Insurance [employer] Advance Directives * Full Code (Latest Code Status on File) Date Activated Date Inactivated Comments 04/25/2025 2:23 PM 04/26/2025 4:50 PM * Full Code Date Activated Date Inactivated Comments 04/24/2025 3:36 PM 04/25/2025 2:23 PM Care Teams Floor Person Relationship Specialty Start Date End Date Anaid Zamarripa FNP [address] [place] [phone] PCP - General Nurse Practitioner Family 06/17/24
--- OUTSIDE RECORDS SUMMARY | 2025-05-05 01:26 | XMS_ITS | Clinical Summary ---
Author Organization [facility] Address [address] [place] [address] Care Team Providers Care Truck Trailer Final Inspector Name Role Phone Maria Alejandra Grubbsn Shiloh JOANA-RECYCLING ATTENDANT Primary Care Provider Source Comments [facility],non-owned Affiliates and Associated Physician Practices is amultiple site organization consisting of ambulatory clinics and hospital sitesin [place], [place], [place] and [place]. This disclosure is being madepursuant to the Care Everywhere program and may not contain all information available regarding this patient. Last updated 18.[facility] Allergies No known active allergies Medications * Be aware that medications may not be up to date on this document. Alwaysverify current medications with the patient. 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 Gender Identity Not on file Sexual Orientation [...] 1:48 PM CDT Height 157.5 cm (5' 2) 02/22/2019 1:48 PM CDT Body Mass Index [...] SCREENING 1965 LIPID TESTING 1965 MAMMOGRAM 1965 HIV SCREENING 1979 HEPATITIS C SCREENING 03/29/1982 DTAP/TDAP/TD VACCINES (1 - Tdap) 1983 PNEUMOCOCCAL VACCINE 50+ (1 of 1 - PCV) 2014 ZOSTER VACCINE (1 of 2) 2014 SCREENING FOR DIABETES 02/22/2019 COVID-19 VACCINE (1 - 2023-2 5 season) 2024 DEPRESSION SCREENING 11/03/2024 INFLUENZA VACCINE (Season Ended) 2025 Respiratory Syncytial Virus (RSV) Vaccine Pt: or [...] on patient's age to complete this topic Insurance [employer] ANTHEM Care Teams Truck Trailer Final Inspector Relationship Specialty Start Date End Date Maisha Grubbs APRN-FOREST [address] [place] [phone] PCP - General 10/02/21
--- OUTSIDE RECORDS SUMMARY | 2025-05-05 01:26 | XMS_ITS | Encounter Summary ---
Author Organization [facility] Address [address] [place] [address] Care Team Providers Care Flexographic Press Helper Name Role Phone Maisha Grubbs [facility] Primary Care Provider [phone] Marissa Bowling CASH MANAGEMENT ASSOCIATE Primary Care Provider [phone] Encounter Details Date Type Department Care Team (Late st Contact Info) Description 04/10/2019 Abstract [facility] CONVERSION [address] [place] [address] , Generic Conversion, Social History Tobacco Use Types Packs/Day Years Used Date Smoking Tobacco: Never Assessed Comments Unknown Sex and Gender Information Value Date Recorded Sex Assigned at Female 04/26/2025 11:18 AM CDT Legal Sex Female 7:48 PM CDT Gender Identity Female 04/26/2025 11:18 AM CDT Sexual Orientation Not on file documented as of this encounter Plan of Treatment Upcoming Encounters Date Type Department Care Team (Latest Contact Info) Description 05/11/2025 7:30 AM CDT Hospital Encounter [facility] [address] [place] [address] Fabrice Braun, JOVANNY [address] [place] [address] 05/11/2025 7:30 AM CDT Anesthesia Event [facility] [address] [place] [address] Madina Jovel RN 05/11/2025 7:30 AM CDT - 05/11/2025 9:30 AM CDT Surgery [facility] - [facility] [address] [place] [address] Fabrice Braun, DPM [address] [place] [address] OPEN REDUCTION INTERNAL FIXATION ANKLE WITH REMOVAL OF EXTERNAL FIXATOR Scheduled Procedures Name Priority Associated Diagnoses Date/Ti me OPEN REDUCTION INTERNAL FIXATION ANKLE RIGHT TRIMALLEOLAR ANKLE FRACTURE 05/11/2025 7:30 AM CDT documented as of this encounter Visit Diagnoses Not on filedocumented in this encounter Additional Health Concerns Infection Onset Date Last Indicated Resolved Time COVID-19 Rule Out 10/15/2021 10/15/2021 10/15/2021 8:04 PM [facility] documented as of this encounter Care Teams Flexographic Press Helper Relationship Specialty Start Date End Date Maisha Grubbs FNP [address] [place] [phone] PCP - General NURSE PRACTITIONER 10/15/21 06/16/24 Marissa Bowling FNP [address] [place] [phone] PCP - General Nurse Practitioner Family 06/17/24 documented as of this encounter
--- NOTE | 2025-05-05 01:31 | ED.LOWEXIN ---
HPI - Extremity Injury (Lower) General Chief Complaint: Extremity Problem,Nontraumatic Stated Complaint: hole in leg? Time Seen by Provider: 05/05/25 01:30 Source: patient Mode of arrival: wheelchair Limitations: no limitations History of Present Illness HPI Narrative: 60-year-old female with a history of depression, hypertension, chronic low back pain, diverticulosis, fatty liver had recent surgery status post foot fracture. She had her surgery on 04/25/2025. She has a metal lo going through our calcaneus. she has metal trusses around the lo in the calcaneus. The patient presents to the ED with -- One of the metal rods is poking into skin skin on her mark. The patient is concerned that the metal lo which is pushing on her mark would continue to move into her tibia. Patient does not have any fever or chills. No worsening of her foot pain. Patient is due to get this surgery the nature of which is unknown. MD complaint: foot injury Other symptoms: none Related Data Home Medications ?Medication ?Instructions ?Recorded ?Confirmed ?Last Taken ?Type aspirin 325 mg tablet 325 mg PO DAILY 01/05/25 04/22/25 Unknown History omeprazole 40 mg capsule,delayed 40 mg PO DAILY PRN 03/09/25 04/22/25 Unknown History release Allergies Allergy/AdvReac Type Severity Reaction Status Date / Time No Known Allergies Allergy Verified 04/22/25 13:29 Review of Systems Review of Systems: All systems reviewed & are unremarkable except as noted in HPI and below PMFSH Past Medical History Medical History Fatty liver Elevated LFTs Alternating constipation and diarrhea Diarrhea URI (upper respiratory infection) Encounter for surgical aftercare following surgery on the digestive system Hematuria Sore throat Diverticulosis recently treated for diverticulitis. Strep throat Strain of flexor muscle of left hip Renal mass Right low back pain Suprapubic pain LLQ abdominal pain Superficial sunburn Screening for malignant neoplasm of breast Screening for malignant neoplasm of cervix Shingles Acute left flank pain UTI (urinary tract infection) Overweight Pain in right leg Pain in left leg Sore throat Left sided abdominal pain Elevated blood pressure reading Major depression, recurrent GERD (gastroesophageal reflux disease) Nicotine dependence in remission Vitamin D deficiency Malaise and fatigue Obese Surgical History Surgical History H/O foot surgery Hx laparoscopic cholecystectomy 09/26/21 Hx of lithotripsy H/O: section x2 History of partial hysterectomy (~2001) Family History Family History Father Malignant neoplasm of prostate Mother Breast cancer Grandparent Uterine cancer Grandparent Stomach cancer Sibling Kidney malignancy Social History Social History Social History: , has 2 children the patient is a full code and desires to have her is a durable power prosecuting attorney for healthcare. The patient is a former smoker. She does not drink use marijuana or illicit drugs. Code status full code Years smoked: 5 Smoking status: Former smoker Tobacco type: cigarettes Smoking end date: 11/03/02 Alcohol intake: never Substance use: never Substance use type: does not use Do You Feel Safe in your Home?: Yes Lack of Transportation: No Lack of Food: Never True Current Housing: I Have Housing Concerned About Future Housing: No Difficulty Paying Gas/Electric Bills: No Difficulty Paying for Meds: No Currently Unemployed: No Education: High School Diploma/GED Difficulty w/ Childcare or Family Care: No Living arrangements: with family Occupation/Education: occupation Additional occupation/education comments: 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 Gender identity (if verbalized by the patient): Female Spiritual care concerns: No Exam Narrative: pressure 157/97. Temperature 35.8?. Pulse of 111. Const: General: no acute distress Nutritional Appearance: well nourished Orientation/consciousness: patient oriented x3 Limitations: no limitations HENMT: Head: normal to inspection Ears: external ears normal Face/Nose/Sinus: Normal external nose present Face and sinus: normal facial exam Mouth: Yes Normal oral and palatal mucosa present Throat: posterior oropharynx normal Eyes: Conjunctivae: conjunctivae normal Pupils: Equal, round and reactive pupils present EOM: EOMs intact bilaterally Direct Ophthalmoscopy: no photophobia Neck: Neck: normal visual inspection, no lymphadenopathy and no meningeal signs Chest: Chest palpation & inspection: normal inspection of the chest Resp: Effort & Inspection: normal respiratory effort Auscultation: clear to auscultation bilaterally Cardio: Rate: regular rate Rhythm: regular rhythm GI: GI Palp: Yes Soft to palpation Auscultation: normal bowel sounds Other: Tenderness/ rigidity / rebound. : General: Yes no CVA tenderness Back/Spine/Pelvis: Back: no CVA tenderness Skin: General skin exam: normal color Neuro: General: patient oriented x3, moves all extremities, no meningeal signs, no focal motor deficits and CN's II-XI intact bilaterally Extrem: Other: Right foot fracture status post calcaneus lo with medical trusses supporting her foot. Metal lo seems to be penetrating right mark. Able to move her distal toes. Distal sensation is intact. Psych: Mental Status: mental status grossly normal Affect: normal affect Attitude: cooperative Course Course Emergency Course: Foot fracture displacement of for splint Vital Signs Vital signs: Vital Signs Temperature 35.8 C L 05/05/25 01:25 Pulse Rate 111 H 05/05/25 01:25 Respiratory Rate 18 05/05/25 01:25 Blood Pressure 156/97 H 05/05/25 01:25 Pulse Oximetry 94 05/05/25 01:25 Oxygen Delivery Room Air 05/05/25 01:25 Temperature 35.8 C L 05/05/25 01:25 Pulse Rate 111 H 05/05/25 01:25 Respiratory Rate 18 05/05/25 01:25 Blood Pressure 156/97 H 05/05/25 01:25 Pulse Oximetry 94 05/05/25 01:25 Oxygen Delivery Room Air 05/05/25 01:25 MDM - Extremity Injury (Lower) MDM Narrative Medical decision making narrative: displacement foot splint Differential Diagnosis Differential diagnosis: Likely ankle fracture Discharge Plan Discharge Clinical Impression: Foot fracture, right Qualifiers: Encounter type: sequela Fracture type: closed Qualified Code(s): S92.901S - Unspecified fracture of right foot, sequela Patient Disposition: Home Condition: Stable Instructions: Antibiotic Form, Foot Fracture in Adults (ED) Additional Instructions: follow-up with your surgeon Patient Language: Swedish Prescriptions: No Action omeprazole 40 mg capsule,delayed release(DR/EC) 40 mg PO DAILY PRN benzonatate 200 mg capsule 200 mg PO TID PRN (Reason: cough) Qty: 30 0RF fluticasone propionate 50 mcg/actuation spray,suspension See Rx Instructions .ROUTE .COMPLEX Qty: 48 1RF Dose Instruction: 1 SPRAY INTRANASALLY EVERY 12 HOURS ADMINISTER INTO EACH NOSTRIL Rx Instructions: 1 SPRAY INTRANASALLY EVERY 12 HOURS ADMINISTER INTO EACH NOSTRIL cetirizine 10 mg tablet See Rx Instructions .ROUTE .COMPLEX Qty: 90 1RF Dose Instruction: TAKE 1 TABLET BY MOUTH EVERY DAY Rx Instructions: TAKE 1 TABLET BY MOUTH EVERY DAY simethicone [Gas Relief (simethicone)] 125 mg tablet,chewable 125 mg PO TID PRN (Reason: abdominal distention) Qty: 60 1RF aspirin 325 mg tablet 325 mg PO DAILY oxycodone 10 mg tablet 10 mg PO Q6H PRN (Reason: pain) Qty: 30 0RF cyclobenzaprine 10 mg tablet 10 mg PO TID PRN (Reason: muscle spasm) Qty: 30 0RF meclizine 25 mg tablet 25 mg PO BID PRN (Reason: dizziness) Qty: 60 1RF alprazolam [Xanax] 0.5 mg tablet 0.25 mg PO ONCE PRN (Reason: claustrophobia) Qty: 3 0RF lisinopril 10 mg tablet 10 mg PO DAILY Qty: 90 1RF sertraline 50 mg tablet See Rx Instructions .ROUTE .COMPLEX Qty: 90 1RF Dose Instruction: TAKE 1 TABLET BY MOUTH EVERY DAY Rx Instructions: TAKE 1 TABLET BY MOUTH EVERY DAY Follow-up/Referrals: Marissa Bowling APRN [Primary Care Provider] - Time of Disposition: 01:57
== END 2025-05-05 01:52 | disposition home or self-care (01) ==
PROVIDERS: Emergency Provider Internal Medicine Critical Care Medicine; PCP Nurse Practitioner Family
DX: M96.89 Other intraoperative and postprocedural complications and disorders of the musculoskeletal system (principal); S92.901S Unspecified fracture of right foot, sequela; I10 Essential (primary) hypertension; Z87.891 Personal history of nicotine dependence; X58.XXXS Exposure to other specified factors, sequela
CPT/HCPCS: 99282

== ENCOUNTER 2025-06-27 08:43 | Outpatient (RCR) | payer OTHER, SELFPAY ==
--- NOTE | 2025-06-27 09:58 | OPREHPOC ---
Outpatient Therapy Plan of Care This is a Multidisciplinary Plan of Care that may contain components documented by all disciplines (PT, OT, and ST.) PT Problem 1 PT Problem #1 Knowledge Deficit PT Goal 1 Goal / Goal Update Independent and compliant with HEP. Target Visit 2 PT Problem 2 PT Problem #2 Impaired Strength PT Goal 1 Goal / Goal Update Pt to improve bilat hip flexion strength to 5/5. Pt to improve bilat gross ankle strength to 5/5. Target Visit 10 PT Problem 3 PT Problem #3 Impaired Range of Motion PT Goal 1 Goal / Goal Update Pt to improve active R ankle df ROM to 5 deg. Pt to improve active R ankle pf ROM to 40 deg. Pt to improve active R ankle inversion ROM to 30 deg. Pt to improve active R ankle eversion ROM to 25 deg. Target Visit 10 PT Goal 1 Goal / Goal Update Pt to transition to ambulating in boot without AD demonstrating good heel contact and equal step length. Pt to report 20% reduction in perceived disability on LEFS. Target Visit 10
--- NOTE | 2025-06-27 09:59 | PTOPEVAL1 ---
Assessment and note entered by Nuria Wilkins, PT Evaluation Information Assessment Status Evaluation ICD-10 Condition Codes (PT) Encounter for other orthopedic aftercare Z47.89 Other ICD-10 Condition Codes ( S82.851A PT) Onset 04/24/2025 Subjective Information Pt reports on 04/24/2025 she broke her ankle after getting off a swing and ended up falling onto her R ankle and the swing also broke and landed on her foot. She ended up having 2 surgeries to set the bones and put in screws and a plate. She currently denies pain and reports she takes gabapentin to keep it at bay. She has been getting around the house with her boot and crutches and using a rollator as needed for convenience when cleaning. Pt reports her doctor told her she can start bearing full weight in the boot, and about 5 weeks from now she follows up with the surgeon who plans to transition her to a regular shoe. Pt reports she has also been driving with the boot on and her primary complaint is redness and swelling when her foot hangs down. She states she plans to return to work in two weeks as long as she can walk in her boot. Reported Pain Level Pain Score 0: Self Report Assessment PT Clinical Summary Mrs. Leiva is a 60 yo female presenting for skilled PT evaluation following trimalleolar ankle fracture with surgical fixation. She demonstrates deficits in R ankle AROM and strength as well as gait deficits and difficulty ambulating due to pain and numbness on the bottom of the foot. She will benefit from skilled PT intervention to address these deficits to improve mobility, strength and functional independence. Plan of Care Interventions Electrical Stimulation,Gait Training,Hot Pack/Cold Pack,Intermittent Compression Pump,Manual Therapy ,Neuro Re-education,Patient/Caregiver Education, Therapeutic Activities,Therapeutic Exercise,Self- Care/Home Management PT Services Indicated Yes Treatment Frequency and 2x/week for 10 visits Duration These treatments will address the objective and functional deficits as defined above. The patient will be advanced safely and appropriately in order for the patient to progress towards his/her prior level of function. Additional exercises will be introduced and as well as a comprehensive home exercise program upon discharge, if needed, ?to ensure carryover of functional gains achieved in the clinic. This treatment plan has been reviewed and agreement upon by the patient.
--- NOTE | 2025-08-03 16:57 | PCPTNOTE ---
No call no show. left for pt.
== END 2025-09-25 23:59 | disposition home or self-care (01) ==
LOC: CHSPT 08:43
DX: S82.851A Displaced trimalleolar fracture of right lower leg, initial encounter for closed fracture (principal); Z47.89 Encounter for other orthopedic aftercare
CPT/HCPCS: 97110; 97112; 97116; 97150; 97161; 97530

== ENCOUNTER 2025-09-22 10:59 | Outpatient (CLI) | payer OTHER, SELFPAY ==
--- NOTE | ~2025-09-22 | XR_ITS ---
EXAMINATION: XR knee LT 3V, 09/22/2025 11:05 AMMONIUM NITRATE CRYSTALLIZER HISTORY: M25.562 - Pain in left knee COMPARISON: No comparisons available. Findings: No acute fracture or malalignment. No significant degenerative changes. Soft tissues unremarkable. Impression: No acute fracture or malalignment. Reviewed, dictated and finalized at location P. MONIUM NITRATE CRYSTALLIZER Impression: No acute fracture or malalignment.
--- OUTSIDE RECORDS SUMMARY | 2025-09-22 13:32 | XMS_ITS | Encounter Summary ---
Author Organization [facility] Address [facility] [place] [address] Care Team Providers Care Plugger Man Name Role Phone Maisha Grubbs Primary Care Provider [phone] Marissa Bowling Primary Care Provider [phone] Encounter Details Date Type Department Care Team (Late st Contact Info) Description 04/10/2019 Abstract SFL CONVERSION [address] [place] [address] , Generic Conversion, Social History Tobacco Use [...] Rule Out 10/15/2021 10/15/2021 10/15/2021 8:04 PM CLIP WRAPPER documented as of this encounter Care Teams Plugger Man Relationship Specialty Start Date End Date Maisha Grubbs [place] [address] PCP - General NURSE PRACTITIONER 10/15/21 06/16/24 Marissa Bowling FNP [address] [place] [phone] PCP - General Nurse Practitioner Family 06/17/24 documented as of this encounter
--- OUTSIDE RECORDS SUMMARY | 2025-09-22 13:32 | XMS_ITS | Clinical Summary ---
Author Organization [facility] Address [facility] [place] [address] Care Team Providers Care Clerical Adjudicator Name Role Phone Bowling, Scottbubba CASSIE Primary Care Provider [phone] Allergies No known active allergies Medications famotidine 20 MG tabletIndicatio ns:Gastroesopha geal Reflux Disease TAKE 1 TABLET BY MOUTH TWICE A DAY NEEDED FOR EPIGASTRIC PAIN 1 Active sertraline (ZOLOFT) 50 MG tabletIndicatio ns:Depression Take 1 tablet (50 mg total) by mouth daily. Indications: Depression 5 Active lisinopril (PRINIVIL) 10 MG tabletIndicatio ns:Hypertension Take 1 tablet (10 mg total) by mouth daily. Indications: High Blood Pressure 5 Active oxyCODONE immediate release (ROXICODONE) 10 MG immediate release tablet Take 1 tablet (10 mg total) by mouth every 6 (six) hours as needed. 5 Active ibuprofen (MOTRIN) 400 MG tablet Take 2 tablets (800 mg total) by mouth every 6 (six) hours as needed for Pain. Active Active Problems Problem Noted Date Diagnosed Date Closed left ankle fracture 04/24/2025 Family History Medical History Relation Comments Cancer Father Hypertension Father Cancer Mother Relation Status Comments Father Mother Social History Tobacco Use Types Packs/Day Years Used Date Smoking Tobacco: Former Cigarettes Smokeless Tobacco: Never Tobacco Cessation:Counseling Given: Not Answered Comments:Quit smoking 21 years ago Alcohol Use Standard Drinks/Week Comments Not Currently 0 (1 standard drink = 0.6 oz pur e alcohol) [facility] Utilities Answer Date Recorded In the past 12 months has th e electric, gas, oil, or water company threatened to shut off services in your [...] any time in the past 12 m [facility], were you homeless or living in a fdc (including now)? No 04/26/2025 Comments No Sex and Gender Information Value Date Recorded Sex Assigned at Female 04/26/2025 11:18 AM CDT Legal Sex Female 7:48 PM CDT Gender Identity Female 04/26/2025 11:18 AM CDT Sexual Orientation Not on file Last Filed Vital Signs Vital Sign Reading Time Taken Comments Blood Pressure 160/78 05/11/2025 12:10 PM CDT Pulse 93 05/11/2025 12:10 PM CDT Temperature 36 C (96.8 F) 05/11/2025 10:30 AM CDT Respiratory Rate 18 05/11/2025 12:10 PM CDT Oxygen Saturation 92% 05/11/2025 12:10 PM CDT Inhaled Oxygen Concentration - - Weight 78.9 kg (174 lb) 05/11/2025 6:15 AM CDT Height 154.9 cm (5' 0.98) 05/11/2025 6:15 AM CD T Body Mass Index 32.89 05/11/2025 6:15 AM CDT Plan of Treatment Health Maintenance Due [...] of 2) 2014 COVID-19 Vaccine (1 - 2024-2 6 season) 2025 Influenza Adult (#1) 2025 Mammogram Screening 07/09/2026 07/09/2024 Cervical Cancer Screening Pa p with HPV Testing (Age 30 to 64) Every 5 Years 06/21/2029 06/21/2024 Cervical Cancer Screening with HPV 06/21/2029 RSV Immunization or 60+ Years (1 - 1-dose 75+ series) 2039 Hepatitis C Completed 04/26/2025 Hepatitis A Vaccines Aged Out No long er eligible based on patient's age to complete this topic Meningococcal B Vaccine Aged Out No l onger eligible based on patient's age to complete this topic Meningococcal Vaccine Aged Out No jonnathan tere eligible based on patient's age to complete this topic RSV Immunizations Under 20 Months Aged Out No longer eligible based on patient's age to complete this topic Medical Devices Implanted Type Area School Resource Officer Device Identifier Shelf Expiration Date Model / Serial / Lot Bar To Pin Clamp Main Implanted:Qty: 6 on 04/25/2025 by Fabrice Braun, JOVANNY at [facility] Right: Ankle [employer]OVIS [employer]LLIN SNE-9000-BT C / / Clamp Double Angular Bor To Pin Main Implanted:Qty: 1 on 04/25/2025 by Fabrice Braun, KARENM at [facility] Right: Ankle ENOVIS COLLIN DNE-9000-DA CC / / Half Pin 5mm - 180mm Implanted:Qty: 2 on 04/25/2025 by Fabrice Braun DPM at [facility] Right: Ankle EN[employer]IS [employer]LLIN [id number] / / 5.0 Transfixing Pin Implanted:Qty: 1 on 04/25/2025 by Fabrice Braun, JOVANNY at [facility] Right: Ankle ENOVIS COLLIN DNE-5000-30 0 / / Carbon Fiber Boris 400mm Implanted:Qty: 2 on 04/25/2025 by Fabrice Braun DPM at [facility] Right: Ankle ENOVIS CLOLIN DNE-9000-40 0-CF / / [id number] Implanted:Qty: 6 on 04/25/2025 by Fabrice Braun, DPM at [facility] Right: Ankle ENOVIS COLLIN DNE-[id number] 1A / / Clamp Bar To Angular Correction Implanted:Qty: 2 on 04/25/2025 by Fabrice Braun, DPM at [facility] Right: Ankle ENOVIS COLLIN DNE-9000-BA CC / / Block/Spacer 150mm Implanted:Qty: 1 on 04/25/2025 by Fabrice Braun DPLor at [facility] Right: Ankle ENOVIS COLLIN [id number] / / 12 Hole Lateral Fibula Plate Implanted:Qty: 1 on 05/11/2025 by Fabrice Braun DPM at [facility] Right: Foot EN[employer]IS [employer]LLIN NA [id number] / / NA 3.5 Mm Non Locking Screw 12 Mm Implanted:Qty: 3 on 05/11/2025 by Fabrice Braun DPM at [facility] [place] [id number] / / NA 3.5 Mm Non Locking Screw 16mm Implanted:Qty: 1 on 05/11/2025 by Fabrice Braun DPM at [facility] [place] [id number] / / NA 3.5 Locking Screw 12 Mm Implanted:Qty: 3 on 05/11/2025 by Fabrice Braun DPM at [facility] [place] [id number] / / NA 3.5 Locking Screw 14mm Implanted:Qty: 7 on 05/11/2025 by Fabrice Braun DPM at [facility] [place] [id number] / / NA Enofix With Constrictor Syndesmotic Fixation Kit Implanted:Qty: 1 on 05/11/2025 by Fabrice Braun DPM at [facility] Right: Foot ENOVIS COLLIN NA 01/07/2028 3500-00-000 [id number] 3.5 Non Locking Screw 14 Mm Implanted:Qty: 1 on 05/11/2025 by Fabrice Braun DPM at [facility] Right: Foot ENOVIS COLLIN NA [id number] / / NA 3.5 Locking Screw 16 Mm Implanted:Qty: 2 on 05/11/2025 by Fabrice Braun DPM at [facility] [place] [id number] / / NA 4.0 Cannulated Screw 44mm Implanted:Qty: 2 on 05/11/2025 by Fabrice Braun DPM at [facility] Right: Foot ENOVIS COLLIN NA [id number] / / NA Explanted Type Area School Resource Officer Device Identifier Shelf Expiration Date Model / Serial / Lot 4.0 Cannulated Drill Bit Explanted:Qty: 1 on 05/11/2025 by Fabrice Braun, DPM at [facility] Right: Foot ENOVIS [employer]LLIN NA 211-40-001 / / NA 0.045 K Wire Explanted:Qty: 3 on 05/11/2025 by Fabrice Braun, DPM at [facility] Right: Foot ENOVIS COLLIN NA [id number] / / NA 0.062 K Wire Explanted:Qty: 7 on 05/11/2025 by Fabrice Braun, DPM at [facility] Right: Foot ENOVIS COLLIN NA 210-60-004 / / NA 3.5 Overdrill Bit Explanted:Qty: 1 on 05/11/2025 by Fabrice Braun, DPM at [facility] Right: Foot ENOVIS COLLIN NA 340-35-011 / / NA 3.5 [employer] Ankle Drill Bit Explanted:Qty: 1 on 05/11/2025 by Fabrice Braun, DPM at [facility] Right: Foot ENOVIS COLLIN NA 340-35-001 / / NA Procedures Procedure Name Priority Date/Time Associated Diagnosis Comments HC HEPATITIS PANEL ACUTE Routine 04/26/2025 5:12 AM CDT MG SCREENING W ELVA JOSIAH DIGI Routine 07/09/2024 9:48 AM CDT Visit for screening mammogram HUMAN PAPILLOMAVIRUS, HIGH-RISK TYPES Routine 06/21/2024 8:00 AM CDT from Last 3 Months or Most Recently Relevant to Health Maintenance Results * HEPATITIS PANEL,ACUTE (04/26/2025 5:12 AM CDT) HEPATITIS B SURFACE AG NON-REACT DAVID NON-REACT DAVID 04/26/2025 7:04 AM CDT [facility] Comment:HBsAg NOT DETECTED. HEP B CORE IGM NON-REACT DAVID NON-REACT DAVID 04/26/2025 7:04 AM CDT [facility] Comment: IgM ANTI HBc NOT DETECTED. DOES NOT EXCLUDE THE POSSIBILITY OF EXPOSURE TO OR INFECTION WITH HBV. NO RETEST REQUIRED. HIGH DOSES OF BIOTIN MAY INTERFERE WITH THIS TEST RESULT. CORRELATION TO CLINICAL HISTORY AND PRESENTATION RECOMMENDED. HAV IGM NON-REACT DAVID NON-REACT DAVID 04/26/2025 7:04 AM CDT [facility] Comment: IgM ANTI HAV NOT DETECTED. DOES NOT EXCLUDE THE POSSIBILITY OF EXPOSURE TO OR INFECTION WITH HAV. LEVELS OF IgM ANTI HAV MAY BE BELOW THE CUTOFF IN EARLY INFECTION. HEPATITIS C AB NON-REACT DAVID NON-REACT DAVID 04/26/2025 7:04 AM CDT [facility] Comment: ANTIBODIES TO HCV NOT DETECTED. DOES NOT EXCLUDE THE POSSIBILITY OF EXPOSURE TO HCV. 04/26/2025 5:12 AM CDT [facility] Final Resu lt Performing Organization Address City/State/[facility] Co de Phone Number [facility] [address] [place] [address], [phone] * MG SCREENING W ELVA JOSIAH DIGI (07/09/2024 9:48 AM CDT) Anatomical Region Laterality Modality Breast Bilateral Mammography 07/09/2024 10:4 1 AM CDT Impressions 07/12/2024 12:33 PM CDT IMPRESSION: No suspicious change since 07/27/2021. Recommendation: 1: Routine Screening Bilateral in 1 Year Assessment: ACR BI-RADS 2 - BENIGN FINDING(S) Ordered By: ANAID BOWLING Interpreted By: Brian Alvarez MD, 07/09/2024 10:41 AM Narrative 07/12/2024 12:33 PM CDT [address] [place] [address] Examination: Digital screening mammogram with CAD. Clinical [...] followup in one year would seem adequate. [facility] MAMMO Final Result * HUMAN PAPILLOMAVIRUS, HIGH-RISK TYPES (06/21/2024 8:00 AM CDT) SPEC DESCRIPTION CERVIX 06/23/20 3:28 PM CDT [facility] HPV DNA HIGH RISK NEGATIVE NEGATIVE 06/24/2024 12:22 AM CDT [facility] Comment:SEE CYTOLOGY REPORT 06/21/2024 8:00 AM CDT [facility] PATHOLOGY/CYTOLOGY ORDERABLES Final Result [facility] [address] [place] [address], from Last 3 Months or Most Recently Relevant to Health Maintenance Insurance * Guarantor: Melita Leiva Account Type Relation to Patient Date of Phone Billing Address Personal/Family Self 1965 [id number] [place] [address] [employer] Advance Directives * Full Code (Latest Code Status on File) Date Activated Date Inactivated Comments 05/11/2025 10:42 AM 05/11/2025 2:50 PM * Full Code Date Activated Date Inactivated Comments 04/25/2025 2:23 PM 04/26/2025 4:50 PM * Full Code Date Activated Date Inactivated Comments 04/24/2025 3:36 PM 04/25/2025 2:23 PM Care Teams Clerical Adjudicator Relationship Specialty Start Date End Date Anaid Bowling FNP [address] [place] [phone] PCP - General Nurse Practitioner Family 06/17/24
== END 2025-09-22 11:00 | disposition home or self-care (01) ==
LOC: CHSIMG 11:00
PROVIDERS: PCP Nurse Practitioner Family; Visit Provider Nurse Practitioner Family
DX: M25.562 Pain in left knee (principal)
CPT/HCPCS: 73562